=== PATIENT | female | born 1960 | race African-American/Black ===

== ENCOUNTER → 2017-04-11 15:22 | Outpatient (CLI) | payer OTHER, SELFPAY ==
--- NOTE | 2017-04-11 15:41 | HPBI_ITS ---
MAMMOGRAPHY - BILATERAL SCREENING REASON FOR EXAM: Female, 56 years old. Routine annual screening examination. PERTINENT HISTORY: Non-contributory. TECHNIQUE: Digital bilateral breast elvira (3D mammographic acquisition) in the CC and MLO projections. 2-D mediolateral oblique (MLO) and craniocaudad (CC) views of both breasts were obtained. CAD: Full Field Digital Mammography with Computer Added Detection was performed. COMPARISON: Comparison is made with prior study dated March 16, 2015 and March 14, 2014. FINDINGS: Breast Composition: There are scattered areas of fibroglandular density. There are no dominant masses or suspicious calcifications. There is a 10 mm x 9.3 mm well-defined nodule in the upper mid left breast. This is at the 11:00 o'clock position. Prior ultrasound demonstrated this to be a cyst although this nodule has increased in size. A repeat ultrasound is recommended. Stable benign-appearing bilateral axillary lymph nodes. A tissue clip marker is seen in the retroareolar region of the right breast. This is unchanged. No other significant abnormalities are identified. There has been no significant change since the prior study. HPBI/SCREENING MAMM (CAD), BILAT IMPRESSION: Slight increase in size of the nodular density at the 11 to 12:00 position of the left breast as described. Follow-up with ultrasound is recommended. ASSESSMENT CATEGORY: BIRADS Category 0: Incomplete. Need additional imaging evaluation. A letter regarding these results will be sent to the patient by the facility within 30 days. Approximately 10% of breast cancers are not detected by mammography. A normal mammogram should not delay biopsy of a clinically suspicious abnormality. [id number] Electronically Signed: Jeanmarie Nicole MD at 8:25 EST Tel [phone], Service support ,
== END ==
PROVIDERS: Family Provider Internal Medicine; PCP Internal Medicine; Visit Provider Nurse Practitioner
DX: Z12.31 Encounter for screening mammogram for malignant neoplasm of breast (principal)
CPT/HCPCS: 77063; 77067

== ENCOUNTER → 2017-04-17 12:40 | Outpatient (CLI) | payer OTHER, SELFPAY ==
--- NOTE | 2017-04-17 12:41 | US_ITS ---
STUDY: ULTRASOUND BREAST - LEFT REASON FOR EXAM: Female, 56 years old. Abnormal screening mammogram. TECHNIQUE: Axial and longitudinal images of the LEFT breast were performed with a high resolution ultrasound transducer. COMPARISON: Comparison is made with prior mammogram dated April 11, 2017 and prior sonogram of the left breast dated March 24, 2014. FINDINGS: LEFT Breast: There is a 6 mm x 7 mm x 5 mm cyst at the 11:00 position of the breast at 3 cm from the nipple. US/Breast Limited Unilateral IMPRESSION: 6 mm x 7 mm x 5 mm cyst at 11:00 position of the breast at 3 cm from the nipple. ASSESSMENT CATEGORY: BIRADS Category 2: Benign. A letter regarding these results will be sent to the patient by the facility within 30 days. Electronically Signed: Jeanmarie Nicole MD at 13:36 EST Tel [phone], Service support ,
== END ==
PROVIDERS: Family Provider Internal Medicine; PCP Internal Medicine; Visit Provider Nurse Practitioner
DX: N63.20 Unspecified lump in the left breast, unspecified quadrant (principal)
CPT/HCPCS: 76642

== ENCOUNTER → 2017-06-13 08:54 | Outpatient (CLI) | payer OTHER, SELFPAY ==
--- NOTE | 2017-06-13 08:58 | RAD_ITS ---
STUDY: X-RAY - RIGHT ANKLE REASON FOR EXAM: Female, 56 years old. posterior ankle pain TECHNIQUE: 3 view(s) of the ankle. COMPARISON: None. FINDINGS: Normal visualized distal tibia and fibula. Normal medial and lateral malleoli. Normal tibiotalar articulation and ankle mortise. Normal visualized talus and calcaneus. The visualized subtalar, talonavicular, calcaneocuboid and tarsal articulations are normal. The soft tissue structures are unremarkable. RAD/Ankle min 3 Views IMPRESSION: Normal x-ray examination of the ankle. Electronically Signed: Justin Ruth MD at 16:47 EDT , Service support ,
--- NOTE | 2017-06-13 10:16 | RAD_ITS ---
STUDY: X-RAY - LEFT ANKLE REASON FOR EXAM: Female, 56 years old. posterior ankle pain bilaterally TECHNIQUE: 3 view(s) of the ankle. COMPARISON: None. FINDINGS: Normal visualized distal tibia and fibula. Normal medial and lateral malleoli. Normal tibiotalar articulation and ankle mortise. There is a calcaneal spur. The visualized subtalar, talonavicular, calcaneocuboid and tarsal articulations are normal. The soft tissue structures are unremarkable. RAD/Ankle min 3 Views IMPRESSION: There is a calcaneal spur. Electronically Signed: Justin Ruth MD at 17:09 EDT , Service support ,
== END ==
PROVIDERS: Family Provider Internal Medicine; PCP Internal Medicine; Visit Provider Nurse Practitioner
DX: M25.571 Pain in right ankle and joints of right foot (principal); M25.572 Pain in left ankle and joints of left foot
CPT/HCPCS: 73610

== ENCOUNTER 2017-09-10 17:42 | Emergency (ER) | payer OTHER, SELFPAY ==
[2017-09-10 17:44] VITALS: BP 154/101; PULSE 96; RESP 18; TEMP 36.4; O2SAT 98; BMI 28.6
--- NOTE | 2017-09-10 18:10 | RAD_ITS ---
STUDY: X-RAY - LEFT FOOT CLINICAL: Female, 57 years old. Left foot pain TECHNIQUE: 3 view(s) of the foot. COMPARISON: None. FINDINGS: Normal talus, calcaneus, and tarsal bones. Normal visualized subtalar, talonavicular, calcaneocuboid, tarsal and tarsometatarsal articulations. Normal metatarsi. Normal metatarsophalangeal joint of the great toe. Normal tibial and fibular sesamoid bones. Normal interphalangeal joint of the great toe. Normal phalanges of the great toe. Normal second through fifth metatarsophalangeal joints. Normal interphalangeal joints and phalanges of the lesser toes. The soft tissue structures are unremarkable. RAD/Foot min 3 Views IMPRESSION: Normal x-ray examination of the foot. Electronically Signed: Emmanuel Abbasi DO at 20:52 EDT Tel , Service support ,
--- NOTE | 2017-09-10 18:13 | ED.DCSUM_ITS ---
- ER Visit Summary Date of Service: 09/10/17 Chief Complaint: Left foot injury History of Present Illness: The patient is a 57 F presenting with left foot injury. She states around 1 PM today a 20 pound metal bar fell on her left foot. She has been able to ambulate with pain. She tried Aleve at home. No other injuries Physical Examination: Vitals are stable. Patient is afebrile. Alert no acute distress. HEENT exam is unremarkable. Lungs are clear and equal bilaterally. Heart is regular rate and rhythm. Extremities left midfoot tenderness, no ankle or knee tenderness. Normal pulse Skin is warm and dry. No focal neurologic deficit. Remainder of exam is unremarkable. Emergency Department Course and Treatment: Ice pack was applied. X-ray of the left foot shows no acute process. She was given a postop shoe. She is advised to use NSAIDs for pain. Advised to follow-up with her primary care physician. Advised to return to ED for worsening complaints. Disposition: Discharge home Impression: Left foot contusion This note was generated with [employer] dictation software. It may contain incorrect words, spelling, and punctuation that were not noted in review of the chart prior to signing ED Disposition - Plan for ED Patient: Chief Complaint: Lower Extremity Injury Referrals: Maria Elena Dunne [Primary Care Provider] -
--- NOTE | 2017-09-10 20:59 | ED.DEP ---
ED Disposition - Plan for ED Patient: Chief Complaint: Lower Extremity Injury Instructions: ED Contusion Foot Referrals: Maria Elena Dunne [Primary Care Provider] - Jori Olivas DPM [STAFF PHYSICIAN] -
[2017-09-10 21:12] VITALS: BP 134/92; PULSE 101; RESP 16; O2SAT 99
== END 2017-09-10 21:13 | disposition home or self-care (01) ==
LOC: ED 18:22
PROVIDERS: Emergency Provider Emergency Medicine; Family Provider Nurse Practitioner; PCP Nurse Practitioner
DX: S90.32XA Contusion of left foot, initial encounter (principal); W22.8XXA Striking against or struck by other objects, initial encounter; Y93.9 Activity, unspecified; Y92.9 Unspecified place or not applicable; I10 Essential (primary) hypertension; E07.9 Disorder of thyroid, unspecified; Z79.899 Other long term (current) drug therapy
CPT/HCPCS: 73630; 99282

== ENCOUNTER → 2018-01-14 07:23 | Outpatient (CLI) | payer OTHER, SELFPAY ==
--- NOTE | 2018-01-14 07:48 | MRI_ITS ---
STUDY: MRI LEFT MIDFOOT REASON FOR EXAM: Pain across the dorsal midfoot after object fell on the foot 4 months ago. TECHNIQUE: Standardized fat and water weighted pulse sequences were obtained in all 3 orthogonal planes. COMPARISON: Radiographs 09/10/2017. FINDINGS: Normal talonavicular articulation. Normal calcaneocuboid articulation. Normal navicular-cuneiform articulations. Normal intercuneiform articulations. There is a subchondral cyst of the proximal first metatarsal at the first tarsometatarsal articulation (inversion recovery sagittal image 8). There is a partial tear of the proximal aspect of Lisfranc ligament (T2 series 6 image 8). There is arthrosis of the second tarsometatarsal joint with chondral thinning and subchondral cystic change at the dorsal aspect of the articulation (T1 sagittal image 11; inversion recovery sagittal image 11). Normal third tarsometatarsal articulation. Normal cuboid fourth and cuboid fifth tarsometatarsal articulation. There is no demonstrated metatarsal fracture. There is mild arthrosis of the first metatarsophalangeal joint with mild chondral thinning (T1 sagittal image 6). Normal tibialis anterior tendon. Normal extensor hallucis longus tendon. Normal extensor digitorum longus tendons. Normal peroneus longus tendon and distal insertion. Normal peroneus brevis tendon and distal insertion. Normal intrinsic muscles of the mid and forefoot region. Normal extensor digitorum brevis muscle. Normal subcutis adipose space. MRI/Lower Ext/No Jt/w/o IMPRESSION: Partial tear of Lisfranc ligament. Arthrosis of the second tarsometatarsal joint. Subchondral cyst of the first metatarsal base at the tarsometatarsal joint. Mild arthrosis of the first metatarsophalangeal joint. Electronically Signed: Duong Sam MD at 10:00 EDT Tel , Service support ,
== END ==
PROVIDERS: Family Provider Nurse Practitioner; PCP Nurse Practitioner; Referring Provider Podiatrist; Visit Provider Podiatrist
DX: S93.692A Other sprain of left foot, initial encounter (principal)
CPT/HCPCS: 73718

== ENCOUNTER → 2018-04-07 08:29 | Outpatient (CLI) | payer OTHER, SELFPAY ==
--- NOTE | 2018-04-07 08:48 | BI_ITS ---
MAMMOGRAPHY - BILATERAL SCREENING REASON FOR EXAM: Female, 57 years old. Routine annual screening examination. PERTINENT HISTORY: Non-contributory. Remote right stereotactic breast biopsy. TECHNIQUE: Digital bilateral breast elvira (3D mammographic acquisition) in the CC and MLO projections. 2-D mediolateral oblique (MLO) and craniocaudad (CC) views of both breasts were obtained. CAD: Full Field Digital Mammography with Computer Added Detection was performed. COMPARISON: Comparison is made with prior study dated April 11, 2017 and March 16, 2015. FINDINGS: Breast Composition: There are scattered areas of fibroglandular density. There are no dominant masses or suspicious calcifications. The previously seen nodular density in the upper midportion of the left breast has decreased in size. It presently measures 4.6 mm. A tissue clip marker is once again seen in the retroareolar region of the right breast. Stable 5.9 mm well-defined nodule in the anterior upper lateral portion of the right breast. This most likely represents a small cyst. Correlation with ultrasound is recommended. No other significant abnormalities are identified. There has been no significant change since the prior study. BI/SCREENING MAMM (CAD), BILAT IMPRESSION: Decreased size of the nodule in the left breast as described. 5.9 mm well-defined nodule in the anterior upper lateral portion of the right breast. Correlation with ultrasound is recommended. ASSESSMENT CATEGORY: BIRADS Category 0: Incomplete. Need additional imaging evaluation. A letter regarding these results will be sent to the patient by the facility within 30 days. Approximately 10% of breast cancers are not detected by mammography. A normal mammogram should not delay biopsy of a clinically suspicious abnormality. [id number] Electronically Signed: Jeanmarie Nicole MD at 9:53 EST Tel [phone], Service support ,
--- OUTSIDE RECORDS SUMMARY | 2018-06-09 08:58 | XMS RPT_ITS | Continuity of Care Document ---
:1960 Author Organization [facility] Address [address] [address] [place] [address] Phone Care Team Providers Name Role Phone Maria Elena Dunne CNP Unavailable Lynn Gleason Unavailable Dr. Jori Olivas Unavailable Paige Mccoy LPN Unavailable Unavailable Janna Vasquez Unavailable Unavailable Unavailable Unavailable Problems Name Dates Details Abnormal urine (R82.90, 791.9) Status: Active Achilles tendinitis of right lower extremity (M76.61, 726.71) Status: Active Bilateral ankle pain (M25.571, 719.47) Status: Active BMI 29.0-29.9,adult (Z68.29, V85.25) Comments: exercise 20-30 minutes/day, walk dog.Salad, chicken fried once a weeks.macaronipotatoe 2 x weekwheat/. Status: Active BMI 30.0-30.9,adult (Z68.30, V85.30) Status: Active Current nonsmoker (Renamed from Current non-smoker) (Z78.9, V49.89) Status: Active Deliveries (Parity) Comments: 2 Status: Active Encounter for screening mammogram for breast cancer (Renamed from Encounter for screening mammogram for malignant neoplasm of breast) (Z12.31, V76.12) Status: Active H/O colonoscopy (Z98.890, V45.89) Comments: 02/2012, WNL internal hemorhoid , repeat 10 years. Status: Active Hair loss (L65.9, 704.00) Status: Active Hair pulling (F63.3, 307.9) Status: Active Hypercholesteremia (E78.00, 272.0) Status: Active Hypertension, benign (I10, 401.1) Comments: Goal <140/90 Controlled on lopressor and hctzIs on lopressor regularly but takes HCTD only when BP are high. 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 weight watcher Status: Active Postmenopausal (Renamed from Postmenopausal status) (Z78.0, V49.81) Status: Active Prediabetes (R73.03, 790.29) Comments: A1c 6.1, repeat in 3 monthsNot testing because device did not match the test strips Status: Active Pregnancies () Comments: 2 Status: Active Sickle cell trait syndrome (D57.3, 282.5) Status: Active Sinusitis, acute (J01.90, 461.9) Status: Active Thyroid cancer (C73, 193) Comments: pt doesnt know what kind of cancer it is and will call us . Seeing Dr Shaan Rico can switch to BJ Shookthyroid removed 07/[address] Teague[address]ndy thyroid Dr. luu endocrine Status: Active Unspecified Diagnosis Status: Active Unspecified Diagnosis Status: Active Unspecified Diagnosis Status: Active Vertigo (R42, 780.4) Status: Active Vitamin D deficiency, unspecified (E55.9, 268.9) Status: Active Medications Name Dates Details HydroCHLOROthiazide 12.5 MG Oral Capsule 1 Capsule daily for 30 days Quantity: 30 {Capsule} Refills: 6 Ordered:13-Jun-2017 Vibha LORA, Maria Elena Louie CNP, Maria Elena Odonnell Start : 13-Jun-2017 Active Levoxyl 137 MCG Oral Tablet 1 Tablet daily except 1/2 a pill on Friday for 0 days Quantity: 30 {Tablet} Refills: 6 Ordered:07-Mar-2017 Vibha LORA, Maria Elena Louie CNP, Maria Elena Odonnell Start : 07-Mar-2017 Active MULTIVITAMIN (PO Chew Tab) 1 Daily Active Norvasc 5 MG Oral Tablet 1 (one) Tablet daily as directed for 0 days Quantity: 30 {Tablet} Refills: 0 Ordered:13-Oct-2017 Vibha LORA, Maria Elena Louie CNP, Maria Elena Odonnell Start : 13-Oct-2017 Active Vitamin D3 2000U daily Active ANUSOL-HC, 25MG (Rectal Suppository) 1 (one) Suppository qhs prn for 0 days Quantity: 30 {Suppository} Refills: 0 Ordered:13-Oct-2014 STEPHANIE Wright Start : 24-Aug-2014 End : 13-Oct-2014 Inactive AUGMENTIN, 875-125MG (Oral Tablet) 1 (one) Tablet bid for 0 days Quantity: 20 {Tablet} Refills: 0 Ordered:05-May-2015 STEPHANIE Wright Start : 20-Mar-2015 End : 05-May-2015 Inactive Ergocalciferol 61418 UNIT Oral Capsule 1 (one) Capsule twice a week x3 months for 0 days Quantity: 24 {Capsule} Refills: 0 Ordered:22-Sep-2017 Vibha LORA, Maria Elena Zheng CNP Start : 04-Mar-2017 End : 22-Sep-2017 Inactive Lopressor 50 MG Oral Tablet 1 Tablet BID for 0 days Quantity: 60 {Tablet} Refills: 6 Ordered:22-Sep-2017 Paige Mccoy LPN Start : 30-Mar-2017 End : 22-Sep-2017 Inactive Probiotic Oral Tablet Delayed Release 1 (one) Tablet DR Tablet DR daily for 0 days Quantity: 30 {Tablet} Refills: 0 Ordered:13-Jun-2017 Paige Mccoy LPN Start : 29-Apr-2016 End : 13-Jun-2017 Inactive Vitamin D3 High Potency 1000 UNIT Oral Capsule 2 (two) Capsule daily for 30 days Quantity: 30 {Capsule} Refills: 0 Ordered:13-Nov-2015 Nj Nassar MD Start : 11-Oct-2015 End : 10-Nov-2015 Inactive ReliOn All-In-One Device 1 (one) Device one for 0 days Quantity: 1 {Unspecified} Refills: 0 Ordered:03-Sep-2016 Dylan Mccoy LPNa Start : 28-May-2016 End : 03-Sep-2016 Discontinued ReliOn Lancets Thin 26G Miscellaneous 1 (one) Misc bid for 0 days Quantity: 100 {Unspecified} Refills: 3 Ordered:03-Sep-2016 Dylan Mccoy LPNa Start : 28-May-2016 End : 03-Sep-2016 Discontinued ReliOn Ultima Test In Vitro Strip 1 (one) Strip twice daily for 0 days Quantity: 60 {Strip} Refills: 6 Ordered:03-Sep-2016 yDlan Mccoy LPNa Start : 28-May-2016 End : 03-Sep-2016 Discontinued Zithromax Z-Kale 250 MG Oral Tablet 1 (one) Tablet TAD for 0 days Quantity: 1 {Package} Refills: 0 Ordered:28-May-2016 Paige Mccoy LPN Start : 29-Apr-2016 End : 28-May-2016 Discontinued Allergies and Adverse Reactions Name Dates Details Augmentin *PENICILLINS* (Allergy) Status: Active Comments: diarrhea No Known Allergies (Allergy) Onset: 05-May-2015 Status: Inactive No Known Drug Allergies (Allergy) Onset: 05-Aug-2011 Status: Inactive Past Medical History Name Dates Details Abnormal finding on mammography (R92.8, 793.80) Comments: 02/28 mammogram wnlabnormal mamogram 2012 Status: Inactive as of 09-Dec-2016 Achilles tendon pain (727.89) Comments: nsaids sttrecthing not gustavo rto orthosx. Status: Inactive as of 13-Oct-2014 BMI 28.0-28.9,adult (Z68.28, V85.24) Status: Inactive as of 09-Dec-2016 BMI 29.0-29.9,adult (Z68.29, V85.25) Status: Inactive as of 10-Jun-2017 BMI 30.0-30.9,adult (Z68.30, V85.30) Status: Inactive as of 22-Sep-2017 Breast cancer screening (Z12.39, V76.10) Status: Inactive as of 13-Oct-2014 Chest pain (R07.9, 786.50) Comments: sound atypical only happen once. will check EKG. only risk factor in postmenapausal Status: Inactive as of 13-Oct-2014 Diarrhea (R19.7, 787.91) Status: Inactive as of 09-Dec-2016 Gas pain (R14.1, 787.3) Status: Inactive as of 13-Jun-2017 Hemorrhoid (K64.9, 455.6) Status: Inactive as of 13-Oct-2014 Pain of right clavicle (M89.8X1, 733.90) Comments: will try nsaids if not better then get xrayno known injury, just feels sore Status: Inactive as of 09-Dec-2016 Rectal discomfort (K62.89, 569.42) Status: Inactive as of 05-May-2015 Unspecified Diagnosis Status: Inactive as of 13-Oct-2014 Upper Respiratory Infection (J06.9, 465.9) Status: Inactive as of 05-May-2015 Well woman exam (Z00.00, V70.0) Comments: colonscopy 02-25 good due 10 years mammo -, pap good hpv negative 09-28 Status: Inactive as of 09-Dec-2016 WWV V73.21 Comments: planning pap next month. will get mammo. pap in follow up last menses 2 years ago. Status: Inactive as of 29-Mar-2013 Procedures Procedure Dates Details colonoscopy 02/2012, repeat 10 yrs, mammogram 02/28, pap 09/28 Completed Mammogram, Screening Completed Comments: 12/24 Thyroidectomy; Total Completed Comments: 07/19 Date Value Details 10-Sep-2017 Discharge Instruction Result: Comments: See Note; NOTES: [facility] Medical Records Department [address] [place] [address] Discharge Instruction 09/10/172058 MR#: [id number] Acct: [id number] Name: AARONSHAHEEN Horn Rep #: [id number] : 1960 57 From: Greta Fajardo MD PCP: Maria Elena Dunne NP Status: REG ER ED Disposition - Plan for ED Patient: Chief Complaint: Lower Extremity Injury Instructions: ED Contusion Foot Referrals: Maria Elena Dunne [Primary Care Provider] - Jori Olivas DPM [STAFF PHYSICIAN] - What to do if you have Problems For any increased pain, shortness of breath, bleeding, nausea or vomiting, chest pain, or any unexpected problems, contact your Primary Care Provider. Call [facility] ([phone]) or report to the closest Emergency Room. Call 911 if necessary. 09/10/17 2 059 <Electronically signed by Greta Fajardo MD> Date Greta Fajardo MD Cosigner Signature (If Indicated): Date CC: Maria Elena Dunne NP 10-Sep-2017 Emergency Department Summary Result: Comments: See Note; NOTES: [facility] Medical Records Department [address] [place] [address] Emergency Department Summary 09/10/17 1812 MR#: [id number] Acct: [id number] Name: DESTINI CHIU Rep #: [id number] : 1960 57 From: Greta Fajardo MD PCP: Maria Elena Dunne NP Status: REG ER - ER Visit Summary Date of Service: 09/10/17 Chief Complaint: Left foot injury History of Present Illness: The patient is a 57 F presenting with left foot injury. She states around 1 PM today a 20 pound metal bar fell on her left foot. She has been able to ambulate with pain. She tried Al victor hugo at home. No other injuries Physical Examination: Vitals are stable. Patient is afebrile. Alert no acute distress. HEENT exam is unremarkable. Lungs are clear and equal bilaterally. Heart is regular rate and rhythm. Extremities left midfoot tenderness, no ankle or knee tenderness. Normal pulse Skin is warm and dry. No focal neurologic deficit. Remainder of exam is unremarkable. Emergency Depart ment Course and Treatment: Ice pack was applied. X-ray of the left foot shows no acute process. She was given a postop shoe. She is advised to use NSAIDs for pain. Advised to follow-up with her primary care physician. Advised to return to ED for worsening complaints. Disposition: Discharge home Impression: Left foot contusion This note was generated with Fingerprint dictation software. It may contain incorrect words, spelling, and punctuation that were not noted in review of the chart prior to signing ED Disposition - Plan for ED Patient: Chief Complaint: Lower Extremity Injury Referrals: Maria Elena Dunne [Primary Care Provider] - What to do if you have Problems For any increased pain, shortness of breath, bleeding, nausea or vomiting, chest pain, or any unexpected problems, contact your Primary Care Provider. Call [facility] ([phone]) or report to the closest Emergency Room. Call 911 if necessary. 09/10/172058 <Electronically signed by Greta Fajardo MD> Date __ Greta Fajardo MD Cosigner Signature (If Indicated): Date CC: Maria Elena Dunne NP 10-Sep-2017 Foot min 3 Views Result: Comments: See Note; NOTES: [facility] Imaging Services [address] [place] [address] Foot min 3 Views MR#: [id number] Acct: [id number] Name: DESTINI CHIU Rep #: [id number] : 1960 F 57 From: Emmanuel Abbasi DO PCP: Maria Elena Dunne NP Status: REG ER Study: Foot min 3 Views Date of Exam: 09/10/17 Exam# [id number] Ordering Dr: Greta Fajardo MD STUDY: X-RAY - LEFT FOOT CLI NICAL: Female, 57 years old. Left foot pain TECHNIQUE: 3 view(s) of the foot. COMPARISON: None. FINDINGS: Normal talus, calcaneus, and tarsal bones. Normal visual ized subtalar, talonavicular, calcaneocuboid, tarsal and tarsometatarsal articulations. Normal metatarsi. Normal metatarsophalangeal joint of the great toe. Normal tibial and fibular sesamoid bones. N ormal interphalangeal joint of the great toe. Normal phalanges of the great toe. Normal second through fifth metatarsophalangeal joints. Normal interphalangeal joints and phalanges of the lesser toes. The soft tissue structures are unremarkable. RAD/Foot min 3 Views IMPRESSION: Normal x-ray examination of the foot. Electronically Signed: Emmanuel Abbasi DO at 20:52 EDT Tel , Service support , CC: Maria Elena Dunne CD REACTOR OPERATOR; Greta Fajardo MD Director Of Fundraising: Signed 13-Jun-2017 Ankle min 3 Views Result: Comments: See Note; NOTES: [facility] Imaging Services [address] [place] [address] Ankle min 3 Views MR#: [id number] Acct: [id number] Name: DESTINI CHIU Rep #: [id number] : 1960 F 56 From: Justin Ruth MD PCP: Kenzie Villa MD Status: REG CLI Study: Ankle min 3 Views Date of Exam: 06/13/17 Exam# [id number] Ordering Dr: Maria Elena Dunne STUDY: X-RAY - LEFT ANKLE REASON FOR EXAM: Female, 56 years old. posterior ankle pain bilaterally TECHNIQUE: 3 view(s) of the ankle. COMPARISON: None. FINDINGS: Normal visualized distal tibia and fibula. Normal medial and lateral malleoli. Normal tibiotalar articulation and ankle mortise. There is a calcaneal spur. The visualized subtalar, talonavicular, calcaneocuboid and tarsal articulation s are normal. The soft tissue structures are unremarkable. RAD/Ankle min 3 Views IMPRESSION: There is a calcaneal spur. Electronically Signed: Justin Ruth MD at 17:09 EDT , Service support , CC: Maria Elena Dunne CD REACTOR OPERATOR; Kenzie Villa MD Director Of Fundraising: Signed 13-Jun-2017 Ankle min 3 Views Result: Comments: See Note; NOTES: [facility] Imaging Services [address] [place] [address] Ankle min 3 Views MR#: [id number] Acct: [id number] Name: DESTINI CHIU Rep #: [id number] : 1960 F 56 From: Justin Ruth MD PCP: Kenzie Villa MD Status: REG CLI Study: Ankle min 3 Views Date of Exam: 06/13/17 Exam# [id number] Ordering Dr: Maria Elena Dunne STUDY: X-RAY - RIGHT ANKLE REASO N FOR EXAM: Female, 56 years old. posterior ankle pain TECHNIQUE: 3 view(s) of the ankle. COMPARISON: None. FINDINGS: Normal visualized distal tibia and fibula. No rmal medial and lateral malleoli. Normal tibiotalar articulation and ankle mortise. Normal visualized talus and calcaneus. The visualized subtalar, talonavicular, calcaneocuboid and tarsal articulatio ns are normal. The soft tissue structures are unremarkable. RAD/Ankle min 3 Views IMPRESSION: Normal x-ray examination of the ankle. Electronic ally Signed: Justin Ruth MD at 16:47 EDT , Service support , CC: Maria Elena Dunne CD REACTOR OPERATOR; Kenzie Villa MD Director Of Fundraising: Signed 17-Apr-2017 Breast Limited Unilateral Result: Comments: See Note; NOTES: [facility] Imaging Services [address] [place] [address] Breast Limited Unilateral MR#: [id number] Acct: [id number] Name: DESTINI CHIU Rep #: [id number] : 1960 F 56 From: Jeanmarie Nicole MD PCP: Kenzie Villa MD Status: REG CLI Study: Breast Limited Unilateral Date of Exam: 04/17/17 Exam# [id number] Ordering Dr: Maria Elena Dunne STUDY: ULTRA SOUND BREAST - LEFT REASON FOR EXAM: Female, 56 years old. Abnormal screening mammogram. TECHNIQUE: Axial and longitudinal images of the LEFT breast were performed with a high resolution ultrasound tr ansducer. COMPARISON: Comparison is made with prior mammogram dated April 11, 2017 and prior sonogram of the left breast dated March 24, 2014. FINDINGS: LEFT Br east: There is a 6 mm x 7 mm x 5 mm cyst at the 11:00 position of the breast at 3 cm from the nipple. US/Breast Limited Unilateral IMPRESSION: 6 mm x 7 mm x 5 mm cyst at 11:00 position of the breast at 3 cm from the nipple. ASSESSMENT CATEGORY: BIRADS Category 2: Benign. A letter regarding these results will be sent to the patient by the facility within 30 days. Electronically Signed: Jeanmarie Nicole MD at 13:36 EST Tel [phone], Service support , CC: Maria Elena Dunne CD REACTOR OPERATOR; Kenzie Villa MD Director Of Fundraising: Signed 11-Apr-2017 SCREENING MAMM (CAD), BILAT Result: Comments: See Note; NOTES: [facility] Imaging Services [address] [place] [address] SCREENING MAMM (CAD), BILAT MR#: [id number] Acct: [id number] Name: DESTINI CHIU Rep #: [id number] : 1960 F 56 From: Jeanmarie Nicole MD PCP: Kenzie Villa MD Status: REG CLI Study: SCREENING MAMM (CAD), BILAT Date of Exam: 04/11/17 Exam# [id number] Ordering Dr: Maria Elena Dunne PHY - BILATERAL SCREENING REASON FOR EXAM: Female, 56 years old. Routine annual screening examination. PERTINENT HISTORY: Non-contributory. TECHNIQUE: Digital bilateral breast elvira (3D mammographic a cquisition) in the CC and MLO projections. 2-D mediolateral oblique (MLO) and craniocaudad (CC) views of both breasts were obtained. CAD: Full Field Digital Mammography with Computer Added Detection was performed. COMPARISON: Comparison is made with prior study dated March 16, 2015 and March 14, 2014. FINDINGS: Breast Composition: There are scattered areas o f fibroglandular density. There are no dominant masses or suspicious calcifications. There is a 10 mm x 9.3 mm well-defined nodule in the upper mid left breast. This is at the 11:00 o'clock position. P rior ultrasound demonstrated this to be a cyst although this nodule has increased in size. A repeat ultrasound is recommended. Stable benign-appearing bilateral axillary lymph nodes. A tissue clip marke r is seen in the retroareolar region of the right breast. This is unchanged. No other significant abnormalities are identified. There has been no significant change since the prior study. HPBI/SCREENING MAMM (CAD), BILAT IMPRESSION: Slight increase in size of the nodular density at the 11 to 12:00 position of the left breast as described. Follo w-up with ultrasound is recommended. ASSESSMENT CATEGORY: BIRADS Category 0: Incomplete. Need additional imaging evaluation. A letter regarding these results will b e sent to the patient by the facility within 30 days. Approximately 10% of breast cancers are not detected by mammography. A normal mammogram should not delay biopsy of a clinically suspicious abnormal ity. [id number] Electronically Signed: Jeanmarie Nicole MD at 8:25 EST Tel [phone], Service support , CC: Maria Elena Dunne CD REACTOR OPERATOR; Kenzie Villa MD Director Of Fundraising: Signed 06-Mar-2017 Dexa Bone Density Study (HP) Result: Comments: See Note; NOTES: [facility] Imaging Services [address] [place] [address] Dexa Bone Density Study (HP) MR#: [id number] Acct: [id number] Name: DESTINI CHIU Rep #: [id number] : 1960 F 56 From: Jeanmarie Nicole MD PCP: Kenzie Villa MD Status: REG CLI Study: Dexa Bone Density Study (HP) Date of Exam: 03/06/17 Exam# [id number] Ordering Dr: Maria Elena Dunne STUDY: DUAL ENERGY X-RAY ABSORPTIOMETRY / DXA REASON FOR EXAM: Female, 56 years old. The patient is postmenopausal. TECHNIQUE: Bone Mineral Density (BMD) measurements of lumbar spine and bilateral hips were obtained. COMPARISON: None. FINDINGS: Lumbar Spine (L1-L4): g/cm2 (1.401) / T-score (1.8) / Z-score (2.1) Findings are suggestive of normal bone density with a lo w fracture risk. Left Femur Total: g/cm2 (1.173) / T-score (1.3) / Z-score (1.1) Left Femoral Neck: g/cm2 (1.164) / T-score (0.9) / Z-score (1.1) Right Femur Total: g/cm2 (1.214) / T-score (1.6) / Z-sc ore (1.5) Right Femoral Neck: g/cm2 (1.151) / T-score (0.8) / Z-score (1.0) HPBD/Dexa Bone Density Study (HP) IMPRESSION: The patient is conside red normal as outlined below according to World Jhony Organization (WHO) criteria with a low fracture risk. Reference Information: The T-score is the number of felice dard deviations above or below the standard which is normal for young adults at their peak bone mineral density. The World Health Organization (WHO) interprets the T-scores as follows: Above -1 Normal bone density Between -1 and -2.5 Osteopenia Equal to / or below -2.5 Osteoporosis As a practical clinical guideline, osteopenia may be graded as follows: Mild - 1 through -1.5 Moderate -1.6 through -2.0 Severe -2.1 through -2.4 The Z-score is the number of standard deviations above or below age-matched controls. A Z-score of less than -1.5 would be considered abnormal. References: 1. NIH Osteoporosi s and Related Bone Diseases http://www.osteo.org 2. International Society for Clinical Densitometry http://www.iscd.org 3. National Osteoporosis Foundation http://www.nof.org Electronically Signed: Victorino Nicole MD at 13:36 EST Tel [phone], Service support , CC: Maria Elena Dunne CD REACTOR OPERATOR; Kenzie Villa MD Director Of Fundraising: Signed 13-Dec-2015 Thyroid Result: Comments: See Note; NOTES: [facility] Imaging Services [address] [place] [address] Verdana 4d Thyroid MR#: [id number] Acct: [id number] Name: DESTINI CHIU Rep #: [id number] DO B: 1960 F 55 From: Jeanmarie Nicole MD PCP: Kenzie Villa MD Status: REG CLI Study: Thyroid Date of Exam: 12/13/15 Exam# [id number] Ordering Dr: Lynn Gleason MD STUDY: THYROID ULTRA SOUND REASON FOR EXAM: Female, 55 years old. History of a thyroidectomy. TECHNIQUE: Ultrasound evaluation of the thyroid was performed with real-time and static mix-scale imaging. COMPARISON: Compar merly is made with prior ultrasound dated May 28, 2004. FINDINGS: The patient is status post total thyroidectomy. 2 lymph nodes are seen in the right cervical reg ion. The larger measuring 1.6 cm x 1.1 cm x 0.4 cm. 2 lymph nodes are seen in the left cervical region. The larger measures 1.1 cm x 0.9 cm x 0.3 cm. ORDER #: [id number] US/Thyroid IMPRESSION: The patient is status post total thyroidectomy. Small bilateral cervical lymph nodes. Electronically Signed: Jeanmarie Nicole MD at 8:28 EDT Tel [phone], Service support [phone], CC: Kenzie Villa MD; Lynn Gleason MD Director Of Fundraising: Signed 16-Mar-2015 Bilat Scrn Digital AND CAD Result: Comments: See Note; NOTES: [facility] Imaging Services [address] [place] [address] Verdana 4d Bilat Scrn Digital AND CAD MR#: [id number] Acct: [id number] Name: DESTINI CHIU Rep #: [id number] : 1960 F 54 From: Jeanmarie Nicole MD PCP: Kenzie Villa MD Status: REG CLI Study: Carline Bullard Digital AND CAD Date of Exam: 03/16/15 Exam# [id number] Ordering Dr: Kenzie Villa MD MAMMOGRAPHY - BILATERAL SCREENING REASON FOR EXAM: Female, 54 years old. Routine annual screening examination. PERTINENT HISTORY: Non-contributory. Prior right stereotactic biopsy. TECHNIQUE: Digital examination. Mediolateral oblique (MLO) and craniocaudad (CC) views of both breasts were obtained. CAD: CAD was performed on this study. COMPARISON: Comparison is made with prior study dated March 14, 2014 and July 14, 2007. FINDINGS: Breast Composition: There are scattered areas of fibroglandular density. There are no do minant masses or suspicious calcifications. The previously seen nodule in the upper midportion of the left breast has decreased in size there is this most likely presents partial resolution of a cyst. No new mass lesion is seen. No other significant abnormalities are identified. IMPRESSION: Stable bilateral screening mammogram. Yearly follow-up recommended. (A) ASSESSMENT CATEGORY: BIRADS Category 2: Benign. A letter regarding these results will be sent to the patient by the facility within 30 days. Approximatel y 10% of breast cancers are not detected by mammography. A normal mammogram should not delay biopsy of a clinically suspicious abnormality. [id number] Electronically Signed: Jeanmarie Nicole MD 2 at 8:59 EST Tel [phone], Service support [phone], CC: Kenzie Villa MD Director Of Fundraising: Signed 12-Oct-2014 Unilat Lt Diag Digital AND CAD Result: Comments: See Note; NOTES: [facility] Imaging Services [address] [place] [address] Breast Imaging Report MR#: [id number] Acct: [id number] Name: DESTINI CHIU Rep #: [id number] : 1960 F 54 From: Jeanmarie Nicole MD PCP: Kenzie Villa MD Status: REG CLI Study: Unilat Lt Diag Digital AND CAD Date of Exam: 10/12/14 Exam# [id number] Ordering Dr: Kenzie Villa MD MAMMOGRAPHY - UNILATERAL DIAGNOSTIC: LEFT BREAST REASON FOR EXAM: Female, 54 years old. 6 month followup examination. PERTINENT HISTORY: Prior right stereotactic breast biopsy. TECHNIQUE: D igital examination. Mediolateral oblique (MLO) and craniocaudad (CC) views of the breast were obtained. CAD: CAD was performed on this study. COMPARISON: Comparison is made with prior study dated 2013 and January 11, 2008. FINDINGS: Breast Composition: There are scattered areas of fibroglandular density. The previously seen 7 mm well-defined nodule in the upper lateral portion of the left breast is less conspicuous at this time. This was previously demonstrated to be a cyst. No other significant abnormalities are identified. IMPRESSION: Stable unilateral diagnostic mammogram. One year follow-up recommended. (A) ASSESSMENT CATEGORY: BIRADS Category 2: Arvin ign. A letter regarding these results will be sent to the patient by the facility within 30 days. Approximately 10% of breast cancers are not detected by mammography. A normal mammogram should not d elay biopsy of a clinically suspicious abnormality. Electronically Signed: Jeanmarie Nicole MD at 13:58 EDT Tel [phone], Service support [phone], CC: Kenize Villa MD Director Of Fundraising: Signed 24-Mar-2014 Breast Limited Unilateral Result: Comments: See Note; NOTES: [facility] Imaging Services [address] [place] [address] Ultrasound Report MR#: [id number] Acct: [id number] Name: DESTINI CHIU Rep #: [id number] : 1960 F 53 From: Jeanmarie Nicole MD PCP: Kenzie Villa MD Status: REG CLI Study: Breast Limited Unilateral Date of Exam: 03/24/14 Exam# [id number] Ordering Dr: Kenzie Villa MD CHUCK DY: ULTRASOUND BREAST(S) - LEFT REASON FOR EXAM: Female, 53 years old. Abnormal screening mammogram. TECHNIQUE: Axial and longitudinal images of the LEFT breast were performed with a high resolutio n ultrasound transducer. COMPARISON: Comparison is made with prior mammogram dated March 14, 2014. FINDINGS: LEFT BREAST: The upper half of the left breas t was examined. There is a 5 mm x 5 mm x 3 mm cyst at the 11:00 position of the breast at 3 cm from the nipple. This corresponds to the mammographic abnormality. IMPRESSION: The mammographic abnormality corresponds to a 5 mm x 5 mm x 3 mm cyst. ASSESSMENT CATEGORY: BIRADS Category 2: Benign. A letter regarding these resu lts will be sent to the patient by the facility within 30 days. Electronically Signed: Jeanmarie Nicole MD at 15:22 EST Tel [phone], Service support [phone], CC: Kenzie Villa MD Director Of Fundraising: Signed 14-Mar-2014 Bilat Scrn Digital AND CAD Result: Comments: See Note; NOTES: [facility] Imaging Services [address] [place] [address] Breast Imaging Report MR#: [id number] Acct: [id number] Name: DESTINI CHIU Rep #: [id number] : 1960 F 53 From: Pavel Olmstead MD PCP: Kenzie Villa MD Status: REG CLI Study: Bilat Scrn Digital AND CAD Date of Exam: 03/14/14 Exam# [id number] Ordering Dr: Kenzie Villa MD MAMMO GRAPHY - BILATERAL SCREENING REASON FOR EXAM: Female, 53 years old. Routine annual screening examination. PERTINENT HISTORY: Sister with breast cancer. TECHNIQUE: Digital examination. Mediolatera l oblique (MLO) and craniocaudad (CC) views of both breasts were obtained. CAD: CAD was performed on this study. COMPARISON: 2007 FINDINGS: Breast Composition : There are scattered areas of fibroglandular density. There are no dominant masses or suspicious calcifications. Stable subcentimeter nodule in the upper outer quadrant of the right breast unchange d from the previous study. However there is a new well-defined 7 mm nodule in the central upper aspect of the left breast. Since this was not present on the previous study, further evaluation with ult rasound is recommended. No other significant abnormalities are identified. IMPRESSION: Further imaging evaluation recommended, as described above. (E) ASSESSMENT CATEGORY: BIRADS Category 0: Incomplete. Need additional imaging evaluation. A letter regarding these results will be sent to the patient by the facility wit hin 30 days. BR0A Approximately 10% of breast cancers are not detected by mammography. A normal mammogram should not delay biopsy of a clinically suspicious abnormality. 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 son and daughter Status: Active No Drug Use Status: Active Non Drinker/No Alcohol Use Status: Active Tobacco use: Never smoker. Status: Active Smoking Status Name Dates Details Never smoker Vital Signs Date Test Result Details :53 Temperature 97.8 f Pulse 72 /min Comments: Pattern: Regular Respiration Rate 16 /min Comments: Pattern: Unlabored BP Systolic 118 mm[Hg] Comments: Patient Position: Sitting; Cuff Location: Left Arm; Cuff Size: Standard BP Diastolic 80 mm[Hg] Comments: Patient Position: Sitting; Cuff Location: Left Arm; Cuff Size: Standard Weight 173.25 lb Height 63.5 in Body Mass Index Calculated 30.21 kg/m2 Body Surface Area Calculated 1.83 m2 :43 Temperature 97.7 f Pulse 61 /min Comments: Pattern: Regular Respiration Rate 16 /min Comments: Pattern: Unlabored O2 SAT 96 % Comments: Room air BP Systolic 148 mm[Hg] Comments: Patient Position: Sitting; Cuff Location: Left Arm; Cuff Size: Standard BP Diastolic 90 mm[Hg] Comments: Patient Position: Sitting; Cuff Location: Left Arm; Cuff Size: Standard Weight 173.5 lb Height 63.5 in Body Mass Index Calculated 30.25 kg/m2 Body Surface Area Calculated 1.83 m2 :35 Pulse 74 /min Comments: Pattern: Regular Respiration Rate 16 /min Comments: Pattern: Unlabored O2 SAT 98 % Comments: Room air BP Systolic 128 mm[Hg] Comments: Patient Position: Sitting; Cuff Location: Left Arm; Cuff Size: Standard BP Diastolic 78 mm[Hg] Comments: Patient Position: Sitting; Cuff Location: Left Arm; Cuff Size: Standard Weight 171 lb Height 63.5 in Body Mass Index Calculated 29.82 kg/m2 Body Surface Area Calculated 1.82 m2 :39 Temperature 97.9 f Pulse 61 /min Comments: Pattern: Regular Respiration Rate 16 /min Comments: Pattern: Unlabored O2 SAT 97 % Comments: Room air BP Systolic 132 mm[Hg] Comments: Patient Position: Sitting; Cuff Location: Left Arm; Cuff Size: Standard BP Diastolic 82 mm[Hg] Comments: Patient Position: Sitting; Cuff Location: Left Arm; Cuff Size: Standard Weight 172 lb Height 63.5 in Body Mass Index Calculated 29.99 kg/m2 Body Surface Area Calculated 1.82 m2 :53 Temperature 97 f Pulse 76 /min Comments: Pattern: Regular Respiration Rate 16 /min Comments: Pattern: Unlabored O2 SAT 98 % Comments: Room air BP Systolic 122 mm[Hg] Comments: Patient Position: Sitting; Cuff Location: Left Arm; Cuff Size: Standard BP Diastolic 76 mm[Hg] Comments: Patient Position: Sitting; Cuff Location: Left Arm; Cuff Size: Standard Weight 165.25 lb Height 63.5 in Body Mass Index Calculated 28.81 kg/m2 Body Surface Area Calculated 1.79 m2 :17 Temperature 97.8 f Pulse 86 /min Comments: Pattern: Regular Respiration Rate 17 /min Comments: Pattern: Unlabored O2 SAT 96 % Comments: Room air BP Systolic 124 mm[Hg] Comments: Patient Position: Sitting; Cuff Location: Left Arm; Cuff Size: Standard BP Diastolic 82 mm[Hg] Comments: Patient Position: Sitting; Cuff Location: Left Arm; Cuff Size: Standard Weight 164 lb Height 63.5 in Body Mass Index Calculated 28.6 kg/m2 Body Surface Area Calculated 1.79 m2 :13 Temperature 97.8 f Pulse 71 /min Comments: Pattern: Regular Respiration Rate 18 /min Comments: Pattern: Unlabored O2 SAT 97 % Comments: Room air BP Systolic 122 mm[Hg] Comments: Patient Position: Sitting; Cuff Location: Left Arm; Cuff Size: Standard BP Diastolic 80 mm[Hg] Comments: Patient Position: Sitting; Cuff Location: Left Arm; Cuff Size: Standard Weight 167.25 lb Height 63.5 in Body Mass Index Calculated 29.16 kg/m2 Body Surface Area Calculated 1.8 m2 :03 Temperature 98.2 f Comments: Method: Temporal Respiration Rate 16 /min Comments: Pattern: Unlabored O2 SAT 98 % Comments: Room air BP Systolic 140 mm[Hg] Comments: Patient Position: Sitting; Cuff Location: Left Arm; Cuff Size: Standard BP Diastolic 86 mm[Hg] Comments: Patient Position: Sitting; Cuff Location: Left Arm; Cuff Size: Standard Weight 171 lb Height 63.5 in Body Mass Index Calculated 29.82 kg/m2 Body Surface Area Calculated 1.82 m2 :31 Temperature 97.6 f Comments: Method: Temporal Pulse 58 /min Comments: Pattern: Regular Respiration Rate 18 /min Comments: Pattern: Unlabored O2 SAT 95 % Comments: Room air BP Systolic 126 mm[Hg] Comments: Patient Position: Sitting; Cuff Location: Left Arm; Cuff Size: Standard BP Diastolic 84 mm[Hg] Comments: Patient Position: Sitting; Cuff Location: Left Arm; Cuff Size: Standard Weight 172 lb Height 63.5 in Body Mass Index Calculated 29.99 kg/m2 Body Surface Area Calculated 1.82 m2 :34 BP Systolic 124 mm[Hg] Comments: Patient Position: Sitting; Cuff Location: Left Arm; Cuff Size: Standard BP Diastolic 76 mm[Hg] Comments: Patient Position: Sitting; Cuff Location: Left Arm; Cuff Size: Standard :54 Temperature 97.9 f Comments: Method: Temporal Pulse 92 /min Comments: Pattern: Regular Respiration Rate 16 /min Comments: Pattern: Unlabored O2 SAT 97 % Comments: Room air BP Systolic 120 mm[Hg] Comments: Patient Position: Sitting; Cuff Location: Left Arm; Cuff Size: Standard BP Diastolic 86 mm[Hg] Comments: Patient Position: Sitting; Cuff Location: Left Arm; Cuff Size: Standard Weight 169 lb Height 63.75 in Body Mass Index Calculated 29.24 kg/m2 Body Surface Area Calculated 1.82 m2 :05 Comments: has not taken her b/p med yet this am Temperature 97.6 f Comments: Method: Temporal Pulse 68 /min Comments: Pattern: Regular Respiration Rate 18 /min Comments: Pattern: Unlabored O2 SAT 98 % Comments: Room air BP Systolic 144 mm[Hg] Comments: Patient Position: Sitting; Cuff Location: Left Arm; Cuff Size: Large BP Diastolic 96 mm[Hg] Comments: Patient Position: Sitting; Cuff Location: Left Arm; Cuff Size: Large Weight 166 lb Height 63.75 in Body Mass Index Calculated 28.72 kg/m2 Body Surface Area Calculated 1.8 m2 :29 Temperature 97.4 f Pulse 77 /min Comments: Pattern: Regular Respiration Rate 16 /min Comments: Pattern: Unlabored O2 SAT 97 % Comments: Room air BP Systolic 122 mm[Hg] Comments: Patient Position: Sitting; Cuff Location: Left Arm; Cuff Size: Standard BP Diastolic 82 mm[Hg] Comments: Patient Position: Sitting; Cuff Location: Left Arm; Cuff Size: Standard Weight 166.5 lb Height 63.75 in Body Mass Index Calculated 28.8 kg/m2 Body Surface Area Calculated 1.8 m2 [id number] Pulse 82 /min Comments: Pattern: Regular Respiration Rate 16 /min Comments: Pattern: Unlabored O2 SAT 96 % Comments: Room air BP Systolic 124 mm[Hg] Comments: Patient Position: Sitting; Cuff Location: Left Arm; Cuff Size: Standard BP Diastolic 80 mm[Hg] Comments: Patient Position: Sitting; Cuff Location: Left Arm; Cuff Size: Standard Weight 172 lb Height 63.75 in Body Mass Index Calculated 29.76 kg/m2 Body Surface Area Calculated 1.83 m2 :45 Pulse 58 /min Comments: Pattern: Regular Respiration Rate 16 /min Comments: Pattern: Unlabored O2 SAT 98 % Comments: Room air BP Systolic 122 mm[Hg] Comments: Patient Position: Sitting; Cuff Location: Left Arm; Cuff Size: Standard BP Diastolic 78 mm[Hg] Comments: Patient Position: Sitting; Cuff Location: Left Arm; Cuff Size: Standard Weight 157 lb Height 63.75 in Body Mass Index Calculated 27.16 kg/m2 Body Surface Area Calculated 1.76 m2 :32 Pulse 68 /min Comments: Pattern: Regular Respiration Rate 20 /min Comments: Pattern: Unlabored BP Systolic 122 mm[Hg] Comments: Patient Position: Sitting; Cuff Location: Left Arm; Cuff Size: Large BP Diastolic 80 mm[Hg] Comments: Patient Position: Sitting; Cuff Location: Left Arm; Cuff Size: Large Weight 171 lb Height 63.75 in Body Mass Index Calculated 29.58 kg/m2 Body Surface Area Calculated 1.82 m2 :17 Temperature 97.6 f Comments: Method: Oral Pulse 64 /min Comments: Pattern: Regular Respiration Rate 18 /min Comments: Pattern: Unlabored BP Systolic 180 mm[Hg] Comments: Patient Position: Sitting; Cuff Location: Left Arm; Cuff Size: Standard BP Diastolic 110 mm[Hg] Comments: Patient Position: Sitting; Cuff Location: Left Arm; Cuff Size: Standard Weight 171 lb Height 63.75 in Body Mass Index Calculated 29.58 kg/m2 Body Surface Area Calculated 1.82 m2 :05 Temperature 97.8 f Comments: Method: Oral Pulse 70 /min Comments: Pattern: Regular Respiration Rate 18 /min Comments: Pattern: Unlabored BP Systolic 132 mm[Hg] Comments: Patient Position: Sitting; Cuff Location: Left Arm; Cuff Size: Standard BP Diastolic 86 mm[Hg] Comments: Patient Position: Sitting; Cuff Location: Left Arm; Cuff Size: Standard Weight 160 lb Height 63.75 in Body Mass Index Calculated 27.68 kg/m2 Body Surface Area Calculated 1.77 m2 :20 Temperature 97.2 f Comments: Method: Oral Pulse 60 /min Comments: Pattern: Regular Respiration Rate 16 /min Comments: Pattern: Unlabored BP Systolic 126 mm[Hg] Comments: Patient Position: Sitting; Cuff Location: Left Arm; Cuff Size: Large BP Diastolic 86 mm[Hg] Comments: Patient Position: Sitting; Cuff Location: Left Arm; Cuff Size: Large Weight 158 lb Height 63.75 in Body Mass Index Calculated 27.33 kg/m2 Body Surface Area Calculated 1.76 m2 Results Date Description Value Details :29 LIPID PANEL (63932) Comments: Dec; PATIENT WAS FASTINGPERFORMED BY: [facility]CoSaint [facility] CenterIqlwcb0880 [facility] [id number] LDL/HDL Ratio 2.1 {ratio} (Normal) Range: 0.0-3.2 Comments: LDL/HDL Ratio Men Women 1/2 Avg.Risk 1.0 1.5 Av g.Risk 3.6 3.2 2X Avg.Risk 6.2 5.0 3X Avg.Risk 8.0 6.1 LDL Cholesterol Calc 131 mg/dL (Abnormal) Range: 0-99 VLDL Cholesterol Suraj 16 mg/dL (Normal) Range: 5-40 HDL Cholesterol 62 mg/dL (Normal) Comments: Effective January 05, 2018, HDL Cholesterol reference interval will be changing to: Male Female 40 - [id number] 50 - [id number] Triglycerides 80 mg/dL (Normal) Range: 0-149 Cholesterol, Total 209 mg/dL (Abnormal) Range: 100-199 :29 MICROALBUMIN: CREATININE RATIO Comments: today; PATIENT WAS FASTINGPERFORMED BY: [facility] [id number] ([id number]) AND (56969) Alb/Creat Ratio 25.4 {mg/g_creat} (Normal) Range: 0.0-30.0 Comments: Normal: 0.0 - 30.0 Albuminuria: 31.0 - 300.0 Clinical albuminuria: >300.0 Albumin, Urine 30.6 ug/mL (Normal) Creatinine, Urine 120.6 mg/dL (Normal) :29 CALCIFEDIOL (72417) Comments: dec 2017; PATIENT WAS FASTINGPERFORMED BY: [facility] [id number] Vitamin D, 25-Hydroxy 45.0 ng/mL (Normal) Range: 30.0-100.0 Comments: Vitamin D deficiency has been defined by the [place] ofMedicine and an Endocrine Society practice guideline as alevel of serum 25-OH vitamin D less than 20 ng/mL (1,2).The Endocrine Society went on to further define vitamin Dinsufficiency as a level between 21 and 29 ng/mL (2).1. IOM ([place] of Medicine). 2010. Dietary reference intakes for calcium and D. [place]: The National Academies Press.2. Brianne MF, Macy NC, Briana CROSS, et al. Evaluation, treatment, and prevention of vitamin D deficiency: an Endocrine Society clinical practice guideline. JCEM. 2010; 96(7):1911-30. :29 HGB A1C (22702) Comments: Dec 2017; PATIENT WAS FASTINGPERFORMED BY: [email or web address] [facility] [id number] Hemoglobin A1c 5.9 % (Abnormal) Range: 4.8-5.6 Comments: . Prediabetes: 5.7 - 6.4 Diabetes: >6.4 Glycemic control for adults with diabetes: <7.0 :29 TSH (THYROID STIMULATING Comments: dec 2017; PATIENT WAS FASTINGPERFORMED BY: Saffron DigitalDublin [place] [id number] HORMONE) (14510) TSH 4.670 {uIU/mL} (Abnormal) Range: 0.450-4.500 97-Umu-37340:51 Microscopic Examination Comments: PATIENT WAS FASTINGPERFORMED BY: [place] [id number] [facility] [id number] Bacteria None seen (Normal) Mucus Threads Present (Normal) Epithelial Cells (non renal) 0-10 {/hpf} (Normal) Range: 0 - 10 RBC 0-2 {/hpf} (Normal) Range: 0 - 2 WBC 0-5 {/hpf} (Normal) Range: 0 - 5 :51 Lipid Panel (60655) Comments: PATIENT WAS FASTINGPERFORMED BY: [facility]6370 [facility] [id number] LDL/HDL Ratio 2.1 {ratio_units} (Normal) Range: 0.0-3.2 Comments: LDL/HDL Ratio Men Women 1/2 Avg.Risk 1.0 1.5 Av g.Risk 3.6 3.2 2X Avg.Risk 6.2 5.0 3X Avg.Risk 8.0 6.1 LDL Cholesterol Calc 124 mg/dL (Abnormal) Range: 0-99 VLDL Cholesterol Suraj 18 mg/dL (Normal) Range: 5-40 HDL Cholesterol 58 mg/dL (Normal) Triglycerides 90 mg/dL (Normal) Range: 0-149 Cholesterol, Total 200 mg/dL (Abnormal) Range: 100-199 :51 Metabolic Panel, Comprehensive Comments: PATIENT WAS FASTINGPERFORMED BY: [place] [id number] [facility] [id number] ([id number]) ALT (SGPT) 25 [iU]/L (Normal) Range: 0-32 AST (SGOT) 21 [iU]/L (Normal) Range: 0-40 Alkaline Phosphatase 104 [iU]/L (Normal) Range: 39-117 Bilirubin, Total 0.2 mg/dL (Normal) Range: 0.0-1.2 A/G Ratio 1.2 (Normal) Range: 1.2-2.2 Globulin, Total 3.3 g/dL (Normal) Range: 1.5-4.5 Albumin 4.0 g/dL (Normal) Range: 3.5-5.5 Protein, Total 7.3 g/dL (Normal) Range: 6.0-8.5 Calcium 9.1 mg/dL (Normal) Range: 8.7-10.2 Carbon Dioxide, Total 27 mmol/L (Normal) Range: 18-29 Chloride 103 mmol/L (Normal) Range: 96-106 Potassium 4.0 mmol/L (Normal) Range: 3.5-5.2 Sodium 143 mmol/L (Normal) Range: 134-144 BUN/Creatinine Ratio 14 (Normal) Range: 9-23 eGFR If Africn Am 86 mL/min/1.73 (Normal) eGFR If NonAfricn Am 74 mL/min/1.73 (Normal) Creatinine 0.87 mg/dL (Normal) Range: 0.57-1.00 BUN 12 mg/dL (Normal) Range: 6-24 Glucose 103 mg/dL (Abnormal) Range: 65-99 :51 URINALYSIS (74120) Comments: PATIENT WAS FASTINGPERFORMED BY: [place] [id number] Microscopic Examination See below: (Normal) Comments: Microscopic was indicated and was performed. Nitrite, Urine Negative (Normal) Urobilinogen,Semi-Qn 0.2 mg/dL (Normal) Range: 0.2-1.0 Bilirubin Negative (Normal) Occult Blood Negative (Normal) Ketones Negative (Normal) Glucose Negative (Normal) Protein Negative (Normal) WBC Esterase 1+ (Abnormal) Appearance Clear (Normal) Urine-Color Yellow (Normal) pH 6.5 (Normal) Range: 5.0-7.5 Specific [place] 1.017 (Normal) Range: 1.005-1.030 :51 MICROALBUMIN: CREATININE RATIO Comments: PATIENT WAS FASTINGPERFORMED BY: [email or web address] [facility] [id number] ([id number]) AND (39436) Alb/Creat Ratio 69.2 {mg/g_creat} (Abnormal) Range: 0.0-30.0 Albumin, Urine 58.1 ug/mL (Normal) Creatinine, Urine 83.9 mg/dL (Normal) 37-Evd-78084:51 TSH (86153) Comments: PATIENT WAS FASTINGPERFORMED BY: [facility]CoSaint [facility] CenterIhrndu0428 [facility] [id number] TSH 1.460 {uIU/mL} (Normal) Range: 0.450-4.500 :51 CBC, Platelets & Auto Diff Comments: PATIENT WAS FASTINGPERFORMED BY: [facility]CoSaint [facility] CenterVdgfha0875 [facility] [id number] (69697) Immature Grans (Abs) 0.0 {x10E3/uL} (Normal) Range: 0.0-0.1 Immature Granulocytes 0 % (Normal) Baso (Absolute) 0.1 {x10E3/uL} (Normal) Range: 0.0-0.2 Eos (Absolute) 0.3 {x10E3/uL} (Normal) Range: 0.0-0.4 Monocytes(Absolute) 0.4 {x10E3/uL} (Normal) Range: 0.1-0.9 Lymphs (Absolute) 1.8 {x10E3/uL} (Normal) Range: 0.7-3.1 Neutrophils (Absolute) 3.3 {x10E3/uL} (Normal) Range: 1.4-7.0 Basos 1 % (Normal) Eos 5 % (Normal) Monocytes 6 % (Normal) Lymphs 30 % (Normal) Neutrophils 58 % (Normal) Platelets 256 {x10E3/uL} (Normal) Range: 150-379 RDW 15.8 % (Abnormal) Range: 12.3-15.4 MCHC 33.7 g/dL (Normal) Range: 31.5-35.7 MCH 27.4 pg (Normal) Range: 26.6-33.0 MCV 81 fL (Normal) Range: 79-97 Hematocrit 39.5 % (Normal) Range: 34.0-46.6 Hemoglobin 13.3 g/dL (Normal) Range: 11.1-15.9 RBC 4.86 {x10E6/uL} (Normal) Range: 3.77-5.28 WBC 5.8 {x10E3/uL} (Normal) Range: 3.4-10.8 :51 HGB A1C (79219) Comments: PATIENT WAS FASTINGPERFORMED BY: CB [facility] Gytpxh0507 Sam RoadDublin [place] [id number] Hemoglobin A1c 5.9 % (Abnormal) Range: 4.8-5.6 Comments: . Pre-diabetes: 5.7 - 6.4 Diabetes: >6.4 Glycemic control for adults with diabetes: <7.0 :23 HGB A1C (63612) Comments: Today; PATIENT NOT FASTINGPERFORMED BY: CB [facility] Pxueuf9948 Sam RoadDublin [place] [id number] Hemoglobin A1c 5.7 % (Abnormal) Range: 4.8-5.6 Comments: . Pre-diabetes: 5.7 - 6.4 Diabetes: >6.4 Glycemic control for adults with diabetes: <7.0 :08 HGB A1C (63667) Comments: today; PATIENT NOT FASTINGPERFORMED BY: CB [facility] Vvtudn0849 [address] RoadDublin [place] [id number] Hemoglobin A1c 6.0 % (Abnormal) Range: 4.8-5.6 Comments: . Pre-diabetes: 5.7 - 6.4 Diabetes: >6.4 Glycemic control for adults with diabetes: <7.0 :08 GLUCOSE (72571) Comments: today; PATIENT NOT FASTINGPERFORMED BY: CB [facility] Wdnchg5701 [address] RoadDublin [place] [id number] Glucose, Serum 75 mg/dL (Normal) Range: 65-99 40-Xza-419165:08 CALCIFEDIOL (55437) Comments: today; PATIENT NOT FASTINGPERFORMED BY: CB [facility] Lelruu8998 [address] RoadDublin [place] [id number] Vitamin D, 25-Hydroxy 22.1 ng/mL (Abnormal) Range: 30.0-100.0 Comments: Vitamin D deficiency has been defined by the [place] of[place]icine and an Endocrine Society practice guideline as alevel of serum 25-OH vitamin D less than 20 ng/mL (1,2).The Endocrine Society went on to further define vitamin Dinsufficiency as a level between 21 and 29 ng/mL (2).1. IOM ([place] of Medicine). 2010. Dietary reference intakes for calcium and D. [place]: The National Academies Press.2. Brianne MF, Macy NC, Briana CROSS, et al. Evaluation, treatment, and prevention of vitamin D deficiency: an Endocrine Society clinical practice guideline. JCEM. 2010; 96(7):7071-30. 65-Izc-528982:08 TSH (THYROID STIMULATING Comments: today; PATIENT NOT FASTINGPERFORMED BY: [employer] [facility] Jziywx1215 Sam RoadDublin [place] [id number] HORMONE) (45722) TSH 0.732 {uIU/mL} (Normal) Range: 0.450-4.500 :22 T3, FREE (TRIDOTHYRONINE) (15292) Comments: PATIENT WAS FASTINGPERFORMED BY: [facility] Yjbfdn9635 Sam RoadDublin [place] [id number] Triiodothyronine,Free,Serum 2.6 pg/mL (Normal) Range: 2.0-4.4 :22 T4, FREE (THYROXINE) (28279) Comments: PATIENT WAS FASTINGPERFORMED BY: [employer] [facility] Tcjohe2039 Sam RoadDublin [place] [id number] T4,Free(Direct) 1.75 ng/dL (Normal) Range: 0.82-1.77 :22 HGB A1C (40036) Comments: PATIENT WAS FASTINGPERFORMED BY: [facility] Ogxcod7274 Sam RoadDublin [place] [id number] Hemoglobin A1c 6.1 % (Abnormal) Range: 4.8-5.6 Comments: . Pre-diabetes: 5.7 - 6.4 Diabetes: >6.4 Glycemic control for adults with diabetes: <7.0 [id number]-[id number]:13 MICROALBUMIN: CREATININE Comments: PATIENT NOT FASTINGPERFORMED BY: [facility] Mnxpjw5162 Sam RoadDublin [place] [id number] Information: [id number] RATIO (87184) AND (81027) Microalb/Creat Ratio 15.5 {mg/g_creat} (Normal) Range: 0.0-30.0 Microalbumin, Urine 9.8 ug/mL (Normal) Creatinine, Urine 63.3 mg/dL (Normal) :22 VITAMIN B12 AND FOLATES Comments: PATIENT WAS FASTINGPERFORMED BY: AbakanBarnes-Jewish HospitalGpqskx5709 [facility]in [place] [id number] (85889) Folate (Folic Acid), Serum 9.6 ng/mL (Normal) Comments: A serum folate concentration of less than 3.1 ng/mL isconsidered to represent clinical deficiency. Vitamin B12 573 pg/mL (Normal) Range: 211-946 :22 CALCIFEDIOL (21073) Comments: PATIENT WAS FASTINGPERFORMED BY: AbakanBarnes-Jewish HospitalSmikrj7398 [facility] [id number] Vitamin D, 25-Hydroxy 18.8 ng/mL (Abnormal) Range: 30.0-100.0 Comments: Vitamin D deficiency has been defined by the [place] of[facility] and an Endocrine Society practice guideline as alevel of serum 25-OH vitamin D less than 20 ng/mL (1,2).The Endocrine Society went on to further define vitamin Dinsufficiency as a level between 21 and 29 ng/mL (2).1. IOM ([place] of Medicine). 2010. Dietary reference intakes for calcium and D. [place]: The National Academies Press.2. Brianne MF, Macy NAVARRETE, Briana CROSS, et al. Evaluation, treatment, and prevention of vitamin D deficiency: an Endocrine Society clinical practice guideline. JCEM. 2010; 96(7):1911-30. :22 TSH (THYROID STIMULATING Comments: PATIENT WAS FASTINGPERFORMED BY: LabRiple[facility] [facility] Puthfj3292 [facility] [id number] HORMONE) (44797) TSH 0.127 {uIU/mL} (Abnormal) Range: 0.450-4.500 :22 LIPID PANEL (66397) Comments: PATIENT WAS FASTINGPERFORMED BY: [facility] Czvyda2259 [facility] [id number] LDL/HDL Ratio 2.3 {ratio_units} (Normal) Range: 0.0-3.2 Comments: LDL/HDL Ratio Men Women 1/2 Avg.Risk 1.0 1.5 Av g.Risk 3.6 3.2 2X Avg.Risk 6.2 5.0 3X Avg.Risk 8.0 6.1 LDL Cholesterol Calc 111 mg/dL (Abnormal) Range: 0-99 VLDL Cholesterol Suraj 27 mg/dL (Normal) Range: 5-40 HDL Cholesterol 49 mg/dL (Normal) Triglycerides 133 mg/dL (Normal) Range: 0-149 Cholesterol, Total 187 mg/dL (Normal) Range: 100-199 56-Gin-66021:22 METABOLIC PANEL, COMPREHENSIVE Comments: PATIENT WAS FASTINGPERFORMED BY: LabCoSaint Francis Medical CenterZlocjy0006 [facility] [id number] (57178) ALT (SGPT) 31 [iU]/L (Normal) Range: 0-32 AST (SGOT) 31 [iU]/L (Normal) Range: 0-40 Alkaline Phosphatase, S 105 [iU]/L (Normal) Range: 39-117 Bilirubin, Total 0.2 mg/dL (Normal) Range: 0.0-1.2 A/G Ratio 1.4 (Normal) Range: 1.1-2.5 Comments: Effective May 27, 2016 the reference interval for A/G Ratio will be changing to: Age Male Female 0 - 7 d ays 1.1 - 2.3 1.1 - 2.3 8 - 30 days 1.2 - 2.8 1.2 - 2.8 1 - 6 months 1.3 - 3.6 1.3 - 3.6 7 months - 5 years 1.5 - 2.6 1.5 - 2.6 > 5 years 1.2 - 2.2 1.2 - 2.2 Globulin, Total 3.1 g/dL (Normal) Range: 1.5-4.5 Albumin, Serum 4.2 g/dL (Normal) Range: 3.5-5.5 Protein, Total, Serum 7.3 g/dL (Normal) Range: 6.0-8.5 Calcium, Serum 9.2 mg/dL (Normal) Range: 8.7-10.2 Carbon Dioxide, Total 21 mmol/L (Normal) Range: 18-29 Chloride, Serum 106 mmol/L (Normal) Range: 96-106 Potassium, Serum 4.6 mmol/L (Normal) Range: 3.5-5.2 Sodium, Serum 143 mmol/L (Normal) Range: 134-144 BUN/Creatinine Ratio 16 (Normal) Range: 9-23 eGFR If Africn Am 91 mL/min/1.73 (Normal) eGFR If NonAfricn Am 79 mL/min/1.73 (Normal) Creatinine, Serum 0.83 mg/dL (Normal) Range: 0.57-1.00 BUN 13 mg/dL (Normal) Range: 6-24 Glucose, Serum 95 mg/dL (Normal) Range: 65-99 27-Qva-24282:22 CBC, PLATELETS & AUT DIFF Comments: PATIENT WAS FASTINGPERFORMED BY: LabCoSaint Francis Medical CenterScpnas9104 [facility] [id number] (50988) Immature Grans (Abs) 0.0 {x10E3/uL} (Normal) Range: 0.0-0.1 Immature Granulocytes 0 % (Normal) Baso (Absolute) 0.0 {x10E3/uL} (Normal) Range: 0.0-0.2 Eos (Absolute) 0.1 {x10E3/uL} (Normal) Range: 0.0-0.4 Monocytes(Absolute) 0.3 {x10E3/uL} (Normal) Range: 0.1-0.9 Lymphs (Absolute) 1.2 {x10E3/uL} (Normal) Range: 0.7-3.1 Neutrophils (Absolute) 3.3 {x10E3/uL} (Normal) Range: 1.4-7.0 Basos 0 % (Normal) Eos 2 % (Normal) Monocytes 6 % (Normal) Lymphs 25 % (Normal) Neutrophils 67 % (Normal) Platelets 271 {x10E3/uL} (Normal) Range: 150-379 RDW 15.3 % (Normal) Range: 12.3-15.4 MCHC 32.5 g/dL (Normal) Range: 31.5-35.7 MCH 27.4 pg (Normal) Range: 26.6-33.0 MCV 84 fL (Normal) Range: 79-97 Hematocrit 42.1 % (Normal) Range: 34.0-46.6 Hemoglobin 13.7 g/dL (Normal) Range: 11.1-15.9 RBC 5.00 {x10E6/uL} (Normal) Range: 3.77-5.28 WBC 4.9 {x10E3/uL} (Normal) Range: 3.4-10.8 34-Zmi-955584:00 IGP, Aptima HPV, rfx Comments: No. of containers..01 CYTYC Thin Prep VialPATIENT NOT FASTINGPERFORMED BY: =G [facility] Xpuxmcypqy351 [facility]zaHar[facility] Hospitalrlesraritan [facility] [place] [id number] BY: WB [facility] Tmbjiyiman030 [facility]zaHarrington [facility] Hospitalrlesraritan [facility] [place] [id number] 16/18,45 HPV Aptima Negative (Normal) Comments: This test detects fourteen high-risk HPV types (16/18/31/33/35/39/45/51/52/56/58/59/66/68) without differentiation. Note: PAPSMR (Normal) Comments: The Pap smear is a screening test designed to aid in the detection ofpremalignant and malignant conditions of the uterine cervix. It is not adiagnostic procedure and should not be used as the sole mean s of detectingcervical cancer. Both false-positive and false-negative reports do occur. .This liquid based ThinPrep(R) pap test w as screened with theuse of an image guided system. See Note . (Normal) DIAGNOSIS: SPRCS (Normal) Comments: NEGATIVE FOR INTRAEPITHELIAL LESION AND MALIGNANCY.Satisfactory for evaluation. Endocervical and/or squamous metaplasticcells (endocervical component) are present.V72.31 ; Routine gynecolog ical hailey Piper, Chief Building Inspector (ASCP) 81-Zas-089335:00 Thin Prep Pap (38308) Comments: No. of containers..01 CYTYC Thin Prep VialPATIENT NOT FASTINGPERFORMED BY: =G [facility] Dhwxadkfih135 [facility] CenterzaHarrington Memorial Hospitalrleston [place] [id number] BY: WB [facility] Berhgvilkd453 [address] PlazaAliciarlest on [place] [id number] Information: [id number] Age Gdln ACOG Testing 30-65 (Normal) 41-Hau-155597:14 Antithyroglobulin Ab Comments: PATIENT WAS FASTINGPERFORMED BY: [facility] Txfumd6[address] Sam RoadDublin [place] [id number] Thyroglobulin, Antibody <1.0 {IU/mL} Range: 0.0-0.9 (Normal) Comments: Low positive Thyroglobulin antibodies are seen in a portion of theasymptomatic populations.Antithyroglobulin antibodies measured by [facility] [place] [facility] 14-Jul-19 TSH 0.472 {uIU/mL} Comments: PATIENT WAS FASTINGPERFORMED BY: CB [facility] Ceappo0211 Sam RoadDublin [place] [id number] Information: [id number] 1511:14 (Normal) Range: 0.450-4.500 14-Jul-19 Written Authorization WAR (Normal) Comments: PATIENT WAS FASTINGPERFORMED BY: CB [facility] Akgboz1345 Sam RoadDublin [place] [id number] 1511:14 Comments: Written Authorization Received.Authorization received from NORIS FREEMAN [id number] by Tasha Balderas 38-Czw-896318:14 CALCIFEDIOL (66735) Comments: PATIENT WAS FASTINGPERFORMED BY: [facility] Gdqinq5455 Sam RoadDublin [place] [id number] Vitamin D, 25-Hydroxy 16.3 ng/mL (Abnormal) Range: 30.0-100.0 Comments: Vitamin D deficiency has been defined by the [place] ofMedicine and an Endocrine Society practice guideline as alevel of serum 25-OH vitamin D less than 20 ng/mL (1,2).The Endocrine Society went on to further define vitamin Dinsufficiency as a level between 21 and 29 ng/mL (2).1. IOM ([place] of Medicine). 2010. Dietary reference intakes for calcium and D. [place]: The National Academies Press.2. Brianne MF, Macy [place], Briana CROSS, et al. Evaluation, treatment, and prevention of vitamin D deficiency: an Endocrine Society clinical practice guideline. JCEM. 2010; 96(7):1911-30. 18-Whl-294619:14 LIPID PANEL (03302) Comments: PATIENT WAS FASTINGPERFORMED BY: CB [facility] Sgkspa2947 Sam RoadDublin [place] [id number] LDL/HDL Ratio 1.9 {ratio_units} (Normal) Range: 0.0-3.2 Comments: LDL/HDL Ratio Men Women 1/2 Avg.Risk 1.0 1.5 Av g.Risk 3.6 3.2 2X Avg.Risk 6.2 5.0 3X Avg.Risk 8.0 6.1 LDL Cholesterol Calc 106 mg/dL (Abnormal) Range: 0-99 VLDL Cholesterol Suraj 10 mg/dL (Normal) Range: 5-40 HDL Cholesterol 57 mg/dL (Normal) Comments: According to ATP-III Guidelines, HDL-C >59 mg/dL is considered anegative risk factor for CHD. Triglycerides 49 mg/dL (Normal) Range: 0-149 Cholesterol, Total 173 mg/dL (Normal) Range: 100-199 28-Cwi-111403:14 METABOLIC PANEL, COMPREHENSIVE Comments: PATIENT WAS FASTINGPERFORMED BY: [facility] Fwwxor5279 [facility] [id number] ([id number]) ALT (SGPT) 20 [iU]/L (Normal) Range: 0-32 AST (SGOT) 21 [iU]/L (Normal) Range: 0-40 Alkaline Phosphatase, S 100 [iU]/L (Normal) Range: 39-117 Bilirubin, Total 0.3 mg/dL (Normal) Range: 0.0-1.2 A/G Ratio 1.4 (Normal) Range: 1.1-2.5 Globulin, Total 2.9 g/dL (Normal) Range: 1.5-4.5 Albumin, Serum 4.2 g/dL (Normal) Range: 3.5-5.5 Protein, Total, Serum 7.1 g/dL (Normal) Range: 6.0-8.5 Calcium, Serum 9.6 mg/dL (Normal) Range: 8.7-10.2 Carbon Dioxide, Total 26 mmol/L (Normal) Range: 18-29 Chloride, Serum 102 mmol/L (Normal) Range: 97-108 Potassium, Serum 4.5 mmol/L (Normal) Range: 3.5-5.2 Sodium, Serum 144 mmol/L (Normal) Range: 134-144 BUN/Creatinine Ratio 20 (Normal) Range: 9-23 eGFR If Africn Am 76 mL/min/1.73 (Normal) eGFR If NonAfricn Am 66 mL/min/1.73 (Normal) Creatinine, Serum 0.98 mg/dL (Normal) Range: 0.57-1.00 BUN 20 mg/dL (Normal) Range: 6-24 Glucose, Serum 91 mg/dL (Normal) Range: 65-99 22-Rkq-401776:14 CBC, PLATELETS & MANUAL Comments: PATIENT WAS FASTINGPERFORMED BY: LabMary [facility] Hospital6370 [facility] [id number] Information: [id number] DIFF (61331) Immature Grans (Abs) 0.0 {x10E3/uL} (Normal) Range: 0.0-0.1 Immature Granulocytes 0 % (Normal) Baso (Absolute) 0.0 {x10E3/uL} (Normal) Range: 0.0-0.2 Eos (Absolute) 0.1 {x10E3/uL} (Normal) Range: 0.0-0.4 Monocytes(Absolute) 0.4 {x10E3/uL} (Normal) Range: 0.1-0.9 Lymphs (Absolute) 2.2 {x10E3/uL} (Normal) Range: 0.7-3.1 Neutrophils (Absolute) 3.2 {x10E3/uL} (Normal) Range: 1.4-7.0 Basos 1 % (Normal) Eos 2 % (Normal) Monocytes 7 % (Normal) Lymphs 36 % (Normal) Neutrophils 54 % (Normal) Platelets 261 {x10E3/uL} (Normal) Range: 150-379 RDW 16.8 % (Abnormal) Range: 12.3-15.4 MCHC 33.2 g/dL (Normal) Range: 31.5-35.7 MCH 28.6 pg (Normal) Range: 26.6-33.0 MCV 86 fL (Normal) Range: 79-97 Hematocrit 37.1 % (Normal) Range: 34.0-46.6 Hemoglobin 12.3 g/dL (Normal) Range: 11.1-15.9 RBC 4.30 {x10E6/uL} (Normal) Range: 3.77-5.28 WBC 6.0 {x10E3/uL} (Normal) Range: 3.4-10.8 5-Epx-657087:25 Thyroglobulin Reflex Profile Comments: PATIENT NOT FASTINGPERFORMED BY: [facility] Jrfddz2146 [facility] [id number] Thyroglobulin, Antibody <1.0 {IU/mL} Range: 0.0-0.9 (Normal) Comments: Antithyroglobulin antibodies measured by [facility] Thyroglobulin, Serum 0.4 ng/mL Comments: PATIENT NOT FASTINGPERFORMED BY: [employer]Co Juikpj7504 [facility] [id number] :25 (Abnormal) Range: 1.5-38.5 Comments: According to the National Academy of Clinical Biochemistry, thereference interval for Thyroglobulin (TG) should be related toeuthyroid patients and not for patients who underwent thyroidectomy.TG refere nce intervals for these patients depend on the residualmass of the thyroid tissue left after surgery. Establishing apost-operative baseline is recommended.The assay limit of quantitation is 0.1 ng/mL .Thyroglobulin measured by [facility] Immunometric Assay :25 Metabolic Panel, Basic Comments: PATIENT NOT FASTINGPERFORMED BY: [facility] Ttgxyh8234 [facility] [id number] Information: [id number] ([id number]) Calcium, Serum 9.5 mg/dL (Normal) Range: 8.7-10.2 Carbon Dioxide, Total 26 mmol/L (Normal) Range: 19-28 Chloride, Serum 101 mmol/L (Normal) Range: 97-108 Potassium, Serum 3.9 mmol/L (Normal) Range: 3.5-5.2 BUN/Creatinine Ratio 18 (Normal) Range: 9-23 eGFR If Africn Am 83 mL/min/1.73 (Normal) Sodium, Serum 141 mmol/L (Normal) Range: 134-144 BUN 16 mg/dL (Normal) Range: 6-24 Creatinine, Serum 0.91 mg/dL (Normal) Range: 0.57-1.00 eGFR If NonAfricn Am 72 mL/min/1.73 (Normal) Glucose, Serum 95 mg/dL (Normal) Range: 65-99 :22 CBC with manual diff Comments: PATIENT WAS FASTINGPERFORMED BY: Accordent TechnologiesSaint Francis Medical CenterYloufg9753 [facility] [id number] Information: [id number] (44185) Immature Grans (Abs) 0.0 {x10E3/uL} (Normal) Range: 0.0-0.1 Immature Granulocytes 0 % (Normal) Range: 0-2 Baso (Absolute) 0.0 {x10E3/uL} (Normal) Range: 0.0-0.2 Eos (Absolute) 0.2 {x10E3/uL} (Normal) Range: 0.0-0.4 Monocytes(Absolute) 0.3 {x10E3/uL} (Normal) Range: 0.1-1.0 Lymphs (Absolute) 1.8 {x10E3/uL} (Normal) Range: 0.7-4.5 Neutrophils (Absolute) 3.0 {x10E3/uL} (Normal) Range: 1.8-7.8 Basos 1 % (Normal) Range: 0-3 Eos 4 % (Normal) Range: 0-7 Monocytes 6 % (Normal) Range: 4-13 Lymphs 34 % (Normal) Range: 14-46 Neutrophils 55 % (Normal) Range: 40-74 Platelets 233 {x10E3/uL} (Normal) Range: 140-415 RDW 15.5 % (Abnormal) Range: 12.3-15.4 MCHC 33.4 g/dL (Normal) Range: 31.5-35.7 MCH 27.8 pg (Normal) Range: 26.6-33.0 MCV 83 fL (Normal) Range: 79-97 Hematocrit 38.9 % (Normal) Range: 34.0-46.6 Hemoglobin 13.0 g/dL (Normal) Range: 11.1-15.9 RBC 4.67 {x10E6/uL} (Normal) Range: 3.77-5.28 WBC 5.3 {x10E3/uL} (Normal) Range: 4.0-10.5 56-Xtz-06987:22 Lipid Panel (26729) Comments: PATIENT WAS FASTINGPERFORMED BY: LabCoSaint Francis Medical CenterKzwfww7261 [facility] [id number] LDL/HDL Ratio 1.9 {ratio_units} (Normal) Range: 0.0-3.2 LDL Cholesterol Calc 110 mg/dL (Abnormal) Range: 0-99 VLDL Cholesterol Suraj 11 mg/dL (Normal) Range: 5-40 HDL Cholesterol 58 mg/dL (Normal) Comments: According to ATP-III Guidelines, HDL-C >59 mg/dL is considered anegative risk factor for CHD. Triglycerides 57 mg/dL (Normal) Range: 0-149 Cholesterol, Total 179 mg/dL (Normal) Range: 100-199 45-Uwy-44545:22 Metabolic Panel, Comprehensive Comments: PATIENT WAS FASTINGPERFORMED BY: LabCoSaint Francis Medical CenterBfrltp3875 [facility] [id number] (21032) ALT (SGPT) 20 [iU]/L (Normal) Range: 0-32 AST (SGOT) 20 [iU]/L (Normal) Range: 0-40 Alkaline Phosphatase, S 102 [iU]/L (Normal) Range: 25-150 Comments: Please note reference interval change Bilirubin, Total 0.2 mg/dL (Normal) Range: 0.0-1.2 A/G Ratio 1.3 (Normal) Range: 1.1-2.5 Globulin, Total 3.0 g/dL (Normal) Range: 1.5-4.5 Albumin, Serum 4.0 g/dL (Normal) Range: 3.5-5.5 Protein, Total, Serum 7.0 g/dL (Normal) Range: 6.0-8.5 Calcium, Serum 9.1 mg/dL (Normal) Range: 8.7-10.2 Carbon Dioxide, Total 22 mmol/L (Normal) Range: 19-28 Chloride, Serum 106 mmol/L (Normal) Range: 97-108 Potassium, Serum 4.1 mmol/L (Normal) Range: 3.5-5.2 Sodium, Serum 142 mmol/L (Normal) Range: 134-144 BUN/Creatinine Ratio 14 (Normal) Range: 9-23 eGFR If Africn Am 102 mL/min/1.73 (Normal) eGFR If NonAfricn Am 88 mL/min/1.73 (Normal) Creatinine, Serum 0.77 mg/dL (Normal) Range: 0.57-1.00 BUN 11 mg/dL (Normal) Range: 6-24 Glucose, Serum 102 mg/dL (Abnormal) Range: 65-99 14-Txr-40678:22 TSH (76401) Comments: PATIENT WAS FASTINGPERFORMED BY: [facility]6370 [facility] [id number] TSH 0.184 {uIU/mL} (Abnormal) Range: 0.450-4.500 :22 THYROGLOBULIN ANTIBODY (55938) Comments: PATIENT WAS FASTINGPERFORMED BY: [facility]6370 [facility] [id number] Antithyroglobulin Ab <20 {IU/mL} (Normal) Range: 0-40 Comments: Siemens (DPC) ICMA Methodology 21-Csa-449873:14 PAPIG0 Comments: CYTOLOGY INFORMATION:- CLINICAL INFORMATION: - DATE LMP/MENOPAUSE: - COLLECTION VIAL: Thin Prep Vial- EMERGENCY MEDICINE SOURCE: - COLLECTION TECHNIQUE: tPAPSMR Comment (Normal) Comments: The Pap smear is a screening test designed to aid in thedetection of premalignant and malignant conditions of theuterine cervix. It is not a diagnostic procedure andshould not be used as the sole means of detecting cervicalcancer. Both false-positive and false-negative reports dooccur. . tCOM2 . (Normal) tDIAG Comment (Normal) Comments: NEGATIVE FOR INTRAEPITHELIAL LESION AND MALIGNANCY.Satisfactory for evaluation. Endocervical and/or squamous metaplasticcells (endocervical component) are present.Bijal Guaman, Chief Building Inspector (ASCP )This liquid based ThinPrep(R) pap test was screened withthe use of an image guided system.Performed at: [address] [id number] Director: Mario Crawley MD, Phone: [phone] 15-Hgu-317679:14 CBCMD ANISO 1+ (Normal) RBCM N CHROM {NORMAL} (Normal) PE ADEQUATE (Normal) BAS 1 % (Normal) Range: 0-1 EOS 5 % (Normal) Range: 0-5 MON 4 % (Normal) Range: 0-10 LYMPH 38 % (Normal) Range: 19-41 PMN 52 % (Normal) Range: 47-70 YANELI 100 (Normal) ANC 3.1 3/uL (Normal) Range: 2.0-7.7 PLT 242 K/mm3 (Normal) Range: 150-450 RDW 14.9 % (Abnormal) Range: 11.6-14.6 MCHC 34.0 g/dL (Normal) Range: 32-36 MCH 29.1 pg (Normal) Range: 27.0-32.0 MCV 85.7 fL (Normal) Range: 81-99 HCT 38.5 % (Normal) Range: 37-47 HGB 13.1 g/dL (Normal) Range: 12.0-16.0 RBC 4.50 {M/mm3} (Normal) Range: 4.2-5.4 WBC 5.7 K/mm3 (Normal) Range: 4.4-11.0 :14 CMP GAP 8 (Normal) Range: 5-15 CO2 30.0 mmol/L (Normal) Range: 21.0-32.0 CL 104 mmol/L (Normal) Range: 98-107 K 4.7 mmol/L (Normal) Range: 3.5-5.1 NA 142 mmol/L (Normal) Range: 136-145 BIT 0.30 mg/dL (Normal) Range: 0.00-1.00 ALT 30 U/L (Normal) Range: 12-78 ALK 88 U/L (Normal) Range: 50-136 AST 24 U/L (Normal) Range: 15-37 CA 8.9 mg/dL (Normal) Range: 8.5-10.1 AG 1.0 {RATIO} (Normal) Range: 0.9-2.4 GLOB 3.7 g/dL (Normal) Range: 2.7-4.2 ALB 3.8 g/dL (Normal) Range: 3.4-5.0 TPROT 7.5 g/dL (Normal) Range: 6.4-8.2 BC 15.0 {RATIO} (Normal) Range: 10-20 GFRAA 75 mL/min (Normal) GFR 62 mL/min (Normal) CREAT 1.0 mg/dL (Normal) Range: 0.6-1.0 BUN 15 mg/dL (Normal) Range: 7-18 GLU 82 mg/dL (Normal) Range: 70-110 69-Ngj-697442:14 LIPID VLDL 12 mg/dL (Normal) Range: 5-40 LDL 117 mg/dL (Normal) Range: 0-130 HDL 62 mg/dL (Normal) Comments: Reference Range HDL <40 mg/dL Low HDL Cholesterol HDL >or= 60 mg/dL High HDL Cholesterol CHOL 191 mg/dL (Normal) Comments: <200 mg/dL Desirable 200-240 mg/dL Borderline >240 mg/dL High Risk TRIG 58 mg/dL (Normal) Comments: Serum Triglycerides Reference Interval Normal <150 mg/dL Borderline high 150 - 199 mg/dL High 200 - 499 mg/dL Very High > or = 500 mg/dL 17-Urg-347506:14 MIACRE tMICROCREAT 41.5 {mg/g_CRE} (Abnormal) MIALB 27.7 mg/L (Normal) CREU 66.6 mg/dL (Normal) 97-Vzb-439609:14 UAC UMUC 0 SEEN {/hpf} (Normal) UBAC RARE {/hpf} (Normal) UEPIS 0-5 SEEN {/hpf} (Normal) Range: 5-10 URBC 0 SEEN {/hpf} (Normal) Range: 0-5 UWBC 0-5 SEEN {/hpf} (Normal) Range: 0-5 SYDNEY TRACE (Abnormal) UOB NEGATIVE (Normal) ROULA NEGATIVE (Normal) uPROTU NEGATIVE (Normal) UROBU 0.2 EU/dl (Normal) Range: 0.2 - 1.0 MARY 7.0 (Normal) Range: 5.0-8.0 SGU 1.015 (Normal) Range: 1.002-1.030 KETU NEGATIVE mg/dL (Normal) BILIU NEGATIVE (Normal) GLUR NEGATIVE (Normal) UCLAR CLEAR (Normal) UCOL YELLOW (Normal) 5-Izc-683457:26 METABOLIC PANEL, COMPREHENSIVE Comments: PATIENT WAS FASTINGPERFORMED BY: LabCoSaint Francis Medical CenterRdlmey4184 [facility] [id number] ([id number]) ALT (SGPT) 18 [iU]/L (Normal) Range: 0-32 AST (SGOT) 18 [iU]/L (Normal) Range: 0-40 Alkaline Phosphatase, S 100 [iU]/L (Normal) Range: 39-117 Bilirubin, Total 0.3 mg/dL (Normal) Range: 0.0-1.2 A/G Ratio 1.2 (Normal) Range: 1.1-2.5 Globulin, Total 3.5 g/dL (Normal) Range: 1.5-4.5 Albumin, Serum 4.2 g/dL (Normal) Range: 3.5-5.5 Protein, Total, Serum 7.7 g/dL (Normal) Range: 6.0-8.5 Calcium, Serum 9.6 mg/dL (Normal) Range: 8.7-10.2 Carbon Dioxide, Total 25 mmol/L (Normal) Range: 19-28 Chloride, Serum 102 mmol/L (Normal) Range: 97-108 Potassium, Serum 4.0 mmol/L (Normal) Range: 3.5-5.2 Sodium, Serum 141 mmol/L (Normal) Range: 134-144 BUN/Creatinine Ratio 19 (Normal) Range: 9-23 eGFR If Africn Am 86 mL/min/1.73 (Normal) eGFR If NonAfricn Am 74 mL/min/1.73 (Normal) Creatinine, Serum 0.89 mg/dL (Normal) Range: 0.57-1.00 BUN 17 mg/dL (Normal) Range: 6-24 Glucose, Serum 96 mg/dL (Normal) Range: 65-99 4-Tri-877879:26 LIPID PANEL (66734) Comments: PATIENT WAS FASTINGPERFORMED BY: [employer]70 [facility] [id number] LDL/HDL Ratio 2.2 {ratio_units} (Normal) Range: 0.0-3.2 LDL Cholesterol Calc 139 mg/dL (Abnormal) Range: 0-99 VLDL Cholesterol Suraj 16 mg/dL (Normal) Range: 5-40 HDL Cholesterol 63 mg/dL (Normal) Comments: According to ATP-III Guidelines, HDL-C >59 mg/dL is considered anegative risk factor for CHD. Triglycerides 78 mg/dL (Normal) Range: 0-149 Cholesterol, Total 218 mg/dL (Abnormal) Range: 100-199 1-Qxl-226701:26 CBC WITH MANUAL DIFF Comments: PATIENT WAS FASTINGPERFORMED BY: CIHI Psuije3510 [facility] [id number] Information: [id number] ORDER NO DRAW F EE ([id number]) Immature Grans (Abs) 0.0 {x10E3/uL} (Normal) Range: 0.0-0.1 Immature Granulocytes 0 % (Normal) Range: 0-2 Baso (Absolute) 0.0 {x10E3/uL} (Normal) Range: 0.0-0.2 Eos (Absolute) 0.2 {x10E3/uL} (Normal) Range: 0.0-0.4 Monocytes(Absolute) 0.5 {x10E3/uL} (Normal) Range: 0.1-0.9 Lymphs (Absolute) 2.0 {x10E3/uL} (Normal) Range: 0.7-3.1 Neutrophils (Absolute) 3.0 {x10E3/uL} (Normal) Range: 1.4-7.0 Basos 1 % (Normal) Range: 0-3 Eos 4 % (Normal) Range: 0-5 Monocytes 9 % (Normal) Range: 4-12 Lymphs 34 % (Normal) Range: 14-46 Neutrophils 52 % (Normal) Range: 40-74 Platelets 283 {x10E3/uL} (Normal) Range: 155-379 RDW 15.0 % (Normal) Range: 12.3-15.4 MCH 27.5 pg (Normal) Range: 26.6-33.0 MCHC 33.3 g/dL (Normal) Range: 31.5-35.7 Hematocrit 39.9 % (Normal) Range: 34.0-46.6 MCV 83 fL (Normal) Range: 79-97 Hemoglobin 13.3 g/dL (Normal) Range: 11.1-15.9 RBC 4.83 {x10E6/uL} (Normal) Range: 3.77-5.28 WBC 5.8 {x10E3/uL} (Normal) Range: 3.4-10.8 Plan of Care Name Dates Details Instructions Current nonsmoker (Renamed from Current non-smoker) : Follow up in 3 months Indication: Current nonsmoker (Renamed from Current non-smoker) Hypertension, benign : Reviewed Lab Indication: Hypertension, benign Impaired fasting glucose : Eprescribed prescriptions (G8553) Indication: Impaired fasting glucose Hypertension, benign : Follow up in 3 months Indication: Hypertension, benign Hypertension, benign : Eprescribed prescriptions (G8553) Indication: Hypertension, benign Current nonsmoker (Renamed from Current non-smoker) : Follow up in 3 months after June 12 Indication: Current nonsmoker (Renamed from Current non-smoker) Impaired fasting glucose : Eprescribed prescriptions (G8553) Indication: Impaired fasting glucose Gas pain : Follow up in 3 months Indication: Gas pain Gas pain : Celiac Disease and the Gluten-Free Diet: diet Indication: Gas pain Hypertension, benign : Eprescribed prescriptions (G8553) Indication: Hypertension, benign BMI 28.0-28.9,adult : Follow up in 3 months Indication: BMI 28.0-28.9,adult Hypertension, benign : Eprescribed prescriptions (G8553) Indication: Hypertension, benign Thyroid cancer : Follow up in 3 months Indication: Thyroid cancer Thyroid cancer : Eprescribed prescriptions (G8553) Indication: Thyroid cancer Diarrhea : Follow up if no improvement or if symptoms worsen Indication: Diarrhea Vertigo : *Vertigo Education Indication: Vertigo Hypertension, benign : Follow up in 6 months Indication: Hypertension, benign Hypertension, benign : Eprescribed prescriptions (G8553) Indication: Hypertension, benign Upper Respiratory Infection : Eprescribed prescriptions (G8553) Indication: Upper Respiratory Infection Well woman exam : Mammogram *: gynecological health Indication: Well woman exam Rectal discomfort : Follow up if no improvement or if symptoms worsen Indication: Rectal discomfort Rectal discomfort : Hemorrhoids: Brief Version *: hemorrhoids Indication: Rectal discomfort Vitamin D deficiency, unspecified : *ERGOCALCIFEROL DOSAGE PER [place] Indication: Vitamin D deficiency, unspecified Hypertension, benign : Blood Pressure: hypertension Indication: Hypertension, benign Hypertension, benign : Eprescribed prescriptions ([id number]) Indication: Hypertension, benign Hypertension, benign : Blood Pressure: hypertension Indication: Hypertension, benign Hypertension, benign : Continue Current Prescription(s) Indication: Hypertension, benign Achilles tendon pain : Achilles Tendon Injury *: achilles tendon Indication: Achilles tendon pain Hypertension, benign : High Blood Pressure (Essential Hypertension) *: cardiovascular health Indication: Hypertension, benign Well woman exam : Self breast exam Indication: Well woman exam Well woman exam : *Well Female Maintenance (KF) Indication: Well woman exam Well woman exam : Pap/Pelvic/Bimanual/Rectal/Breast Exam was done. Indication: Well woman exam Planned Observations CALCIFEDIOL ([id number])Indication: Vitamin D deficiency, unspecified On: [id number] Request Comments: today HGB A1C ([id number])Indication: Impaired fasting glucose On: [id number] Request Comments: today METABOLIC PANEL, COMPREHENSIVE ([id number])Indication: Hypothyroid On: :23 Request HGB A1C ([id number])Indication: Impaired fasting glucose On: :23 Request LIPID PANEL ([id number])Indication: Hypothyroid On: :23 Request CALCIFEDIOL ([id number])Indication: Vitamin D deficiency, unspecified On: :56 Request Comments: Feb 2017 HGB A1C ([id number])Indication: Impaired fasting glucose On: :53 Request Comments: Feb 2017 T4, FREE (THYROXINE) ([id number])Indication: Hypothyroid On: :53 Request Comments: Feb 2017 T3, FREE (TRIDOTHYRONINE) ([id number])Indication: Hypothyroid On: :52 Request Comments: Feb 2017 TSH (THYROID STIMULATING HORMONE) ([id number])Indication: Hypothyroid On: :52 Request Comments: Feb 2017 TSH (THYROID STIMULATING HORMONE) ([id number])Indication: Hypothyroid On: 59-Nea-280540:59 Request Comments: Do on or around July 08, 2016 HGB A1C ([id number])Indication: Prediabetes On: 21-Zeq-817673:50 Request Comments: to be done after August 28 GLUCOSE ([id number])Indication: Prediabetes On: 12-Vui-842494:50 Request Comments: to be done after August 28 THYROGLOBULIN ANTIBODY ([id number])Indication: Thyroid cancer On: :53 Request THYROGLOBULIN ([id number])Indication: Thyroid cancer On: :51 Request URINALYSIS, W/ MICRO ([id number])Indication: Hypertension, benign On: :51 Request METABOLIC PANEL, COMPREHENSIVE ([id number])Indication: Hypertension, benign On: :51 Request LIPID PANEL ([id number])Indication: Hypertension, benign On: :51 Request CBC with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
--- OUTSIDE RECORDS SUMMARY | 2018-06-09 08:59 | XMS RPT_ITS | Continuity of Care Document ---
:1960 Author Organization [facility] Address [address] [place] [address] Phone Care Team Providers Name Role Phone Maria Elena Dunne CNP Unavailable Lynn Gleason Unavailable Dr. Jori Olivas Unavailable Genoveva Harris Unavailable Unavailable Janna Vasquez Unavailable Unavailable Unavailable Unavailable Problems Name Dates Details Abnormal urine (R82.90, 791.9) Status: Active Achilles tendinitis of right lower extremity (M76.61, 726.71) Status: Active Bilateral ankle pain (M25.571, 719.47) Status: Active BMI 28.0-28.9,adult (Z68.28, V85.24) Status: Active BMI 29.0-29.9,adult (Z68.29, V85.25) Comments: [...] Active Hair pulling (F63.3, 307.9) Status: Active Hip pain, right (M25.551, 719.45) Comments: stretches given Status: Active Hypercholesteremia (E78.00, 272.0) Comments: stable Status: Active Hypertension, benign (I10, 401.1) Comments: Goal<130/80 Controlled on amlodipine and hctz prn for water wt Reviewed new guidlines in [place], would change to calcium channel medina and or diuretic, wean off lopressor now BP well contr olled on amlodipine as needed hctzEKG 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 Seeing Dr Shaan Rico can switch to BJ Shookthyroid removed 07/[address] Te[address]pap[address] thyroid [address]. luu endocrine Status: Active Unspecified Diagnosis Status: Active Unspecified Diagnosis Status: Active Unspecified Diagnosis Status: Active Vertigo (R42, 780.4) Status: Active Vitamin D deficiency, unspecified (E55.9, 268.9) Comments: Continue D3 2000 Status: Active Medications Name Dates Details HydroCHLOROthiazide 12.5 MG Oral Capsule 1 Capsule daily prn for 30 days Quantity: 30 {Capsule} Refills: 6 Ordered:29-Dec-2017 Vibha LORA, Maria Elena Louie [facility], Maria Elena Odonnell Start : 29-Dec-2017 Active Levoxyl 137 MCG Oral Tablet 1 Tablet daily for 0 days Quantity: 30 {Tablet} Refills: 6 Ordered:29-Dec-2017 Vibha LORA, [facility] Start : 29-Dec-2017 Active MULTIVITAMIN (PO Chew Tab) 1 Daily Active Norvasc 5 MG Oral Tablet 1 (one) Tablet daily as directed for 0 days Quantity: 30 {Tablet} Refills: 0 Ordered:13-Oct-2017 Vibha LORA, Maria Elena Louie [facility] Maria Elena Odonnell Start : 13-Oct-2017 Active Synthroid 137 MCG Oral Tablet 1 (one) Tablet daily for 0 days Quantity: 90 {Tablet} Refills: 3 Ordered:29-Dec-2017 Vibha LORA, Maria Elena Louie [facility], Maria Elena Odonnell Start : 29-Dec-2017 Active Synthroid 137 MCG Oral Tablet 1 (one) Tablet daily for 0 days Quantity: 90 {Tablet} Refills: 3 Ordered:29-Dec-2017 Vibha LORA, Maria Elena Louie [facility], Maria Elena Odonnell Start : 29-Dec-2017 Active Comments:No generics ALINA Vitamin D3 2000U daily Active ANUSOL-HC, 25MG (Rectal Suppository) 1 (one) Suppository qhs prn for 0 days Quantity: 30 {Suppository} Refills: 0 Ordered:13-Oct-2014 STEPHANIE Wright Start : 24-Aug-2014 End : 13-Oct-2014 Inactive AUGMENTIN, 875-125MG (Oral Tablet) 1 (one) Tablet bid for 0 days Quantity: 20 {Tablet} Refills: 0 Ordered:05-May-2015 STEPHANIE Wright Start : 20-Mar-2015 End : 05-May-2015 Inactive Ergocalciferol 97432 UNIT Oral Capsule 1 (one) Capsule twice a week x3 months for 0 days Quantity: 24 {Capsule} Refills: 0 Ordered:22-Sep-2017 Cieshoracio LORA, Maria Elena Louie PIT BOSS, Jessica Start : 04-Mar-2017 End : 22-Sep-2017 Inactive [...] days Quantity: 1 {Unspecified} Refills: 0 Ordered:03-Sep-2016 Paige Mccoy LPN Start : 28-May-2016 End : 03-Sep-2016 Discontinued ReliOn Lancets Thin 26G Miscellaneous 1 (one) Misc bid for 0 days Quantity: 100 {Unspecified} Refills: 3 Ordered:03-Sep-2016 Paige Mccoy LPN Start : 28-May-2016 End : 03-Sep-2016 Discontinued ReliOn Ultima Test In Vitro Strip 1 (one) Strip twice daily for 0 days Quantity: 60 {Strip} Refills: 6 Ordered:03-Sep-2016 Pagie Mccoy LPN Start : 28-May-2016 End : 03-Sep-2016 Discontinued [...] colonscopy 02-25 good due 10 years mammo 02-28, pap good hpv negative 09-28 Status: Inactive as of 09-Dec-2016 WWV V73.21 Comments: planning pap next month. will get mammo. pap in follow up last menses 2 years ago. Status: Inactive as of 29-Mar-2013 Procedures Procedure Dates Details colonoscopy 02/2012, repeat 10 yrs, mammogram 02/28, pap 09/28 Completed Mammogram, Screening Completed Comments: 12/24 Thyroidectomy; Total Completed Comments: 07/19 Date Value Details 14-Jan-2018 Lower Ext/No Jt/w/o Result: Comments: See Note; NOTES: [facility] Imaging Services [address] [place] [address] Lower Ext/No Jt/w/o MR#: [id number] Acct: [id number] Name: DESTINI CHIU Rep #: [id number] : 1960 F 57 From: Duong Sam MD PCP: Maria Elena Dunne NP Status: REG CLI Study: Lower Ext/No Jt/w/o Date of Exam: 01/14/18 Exam# [id number] Ordering Dr: Jori Olivas DPM STUDY: MRI LEFT MIDF OOT REASON FOR EXAM: Pain across the dorsal midfoot after object fell on the foot 4 months ago. TECHNIQUE: Standardized fat and water weighted pulse sequences were obtained in all 3 orthogonal planes. COMPARISON: Radiographs 09/10/2017. FINDINGS: Normal talonavicular articulation. Normal calcaneocuboid articulation. Normal navicular-cuneiform articulations. Rose l intercuneiform articulations. There is a subchondral cyst of the proximal first metatarsal at the first tarsometatarsal articulation (inversion recovery sagittal image 8). There is a partial tear of the proximal aspect of Lisfranc ligament (T2 series 6 image 8). There is arthrosis of the second tarsometatarsal joint with chondral thinning and subchondral cystic change at the dorsal aspect of the ar ticulation (T1 sagittal image 11; inversion recovery sagittal image 11). Normal third tarsometatarsal articulation. Normal cuboid fourth and cuboid fifth tarsometatarsal articulation. There is no demon strated metatarsal fracture. There is mild arthrosis of the first metatarsophalangeal joint with mild chondral thinning (T1 sagittal image 6). Normal tibialis anterior tendon. Normal extensor hallucis longus tendon. Normal extensor digitorum longus tendons. Normal peroneus longus tendon and distal insertion. Normal peroneus brevis tendon and distal insertion. Normal intrinsic muscles of the mid and forefoot region. Normal extensor digitorum brevis muscle. Normal subcutis adipose space. MRI/Lower Ext/No Jt/w/o IMPRESSION: Partial tear of Lis franc ligament. Arthrosis of the second tarsometatarsal joint. Subchondral cyst of the first metatarsal base at the tarsometatarsal joint. Mild arthrosis of the first metatarsophalangeal joint. Elec tronically Signed: Duong Sam MD at 10:00 EDT Tel , Service support , CC: Maria Elena Dunne NP; Jori Olivas DPM Practice Consultant: Signed 10-Sep-2017 Discharge Instruction Result: Comments: See Note; NOTES: [facility] Medical Records Department [address] [place] [address] Discharge Instruction 09/10/172058 MR#: [id number] Acct: [id number] Name: SHAHEEN CHIU Rep #: [id number] : 1960 57 From: Greta Fajardo MD [...] your Primary Care Provider. Call [facility] ([phone]) or report to the closest Emergency Room. Call 911 if necessary. 09/10/17 2 059 <Electronically signed by Greta Fajardo MD> Date Greta Fajardo MD Cosigner Signature (If Indicated): Date CC: Maria Elena Dunne NP 10-Sep-2017 Emergency Department Summary Result: Comments: See Note; NOTES: [facility] Medical Records Department [address] [place] [address] Emergency Department Summary 09/10/17 1812 MR#: [id number] Acct: [id number] Name: DESTINI CHIU Rep #: [id number] : 1960 57 From: Greta Fajardo MD [...] foot contusion This note was generated with [employer] dictation software. It may contain incorrect words, [...] problems, contact your Primary Care Provider. Call [facility] ([phone]) or report to the closest Emergency Room. Call 911 if necessary. 09/10/172058 <Electronically signed by Greta Fajardo MD> Date __ Greta Fajardo MD Cosigner Signature (If Indicated): Date CC: Maria Elena Dunne NP 10-Sep-2017 Foot min 3 Views Result: Comments: See Note; NOTES: [facility] Imaging Services [address] [place] [address] Foot min 3 Views MR#: [id number] Acct: [id number] Name: DESTINI CHIU Rep #: [id number] : 1960 F 57 From: Emmanuel Abbasi DO PCP: Maria Elena Dunne NP Status: REG ER Study: Foot min 3 Views Date of Exam: 09/10/17 Exam# [id number] Ordering Dr: Greta Fajardo MD STUDY: X-RAY [...] examination of the foot. Electronically Signed: Emmanuel DO Ayleen at 20:52 EDT Tel , Service support , CC: Maria Elena Dunne NP; Greta Fajardo MD Practice Consultant: Signed 13-Jun-2017 Ankle min 3 Views Result: Comments: See Note; NOTES: [facility] Imaging Services [address] [place] [address] Ankle min 3 Views MR#: [id number] Acct: [id number] Name: DESTINI CHIU Rep #: [id number] : 1960 F 56 From: Justin Ruth MD PCP: Kenzie Villa MD Status: REG CLI Study: Ankle min 3 Views Date of Exam: 06/13/17 Exam# [id number] Ordering Dr: Maria Elena Dunne STUDY: X-RAY [...] Service support , CC: Maria Elena Dunne NP; Kenzie Villa MD Practice Consultant: Signed 13-Jun-2017 Ankle min 3 Views Result: Comments: See Note; NOTES: [facility] Imaging Services [address] [place] [address] Ankle min 3 Views MR#: [id number] Acct: [id number] Name: DESTINI CHIU Rep #: [id number] : 1960 F 56 From: Justin Ruth MD PCP: Kenzie Villa MD Status: REG CLI Study: Ankle min 3 Views Date of Exam: 06/13/17 Exam# [id number] Ordering Dr: Maria Elena Dunne STUDY: X-RAY [...] Service support , CC: Maria Elena Dunne SUPPLY CHAIN MANAGER; Kenzie Villa MD Practice Consultant: Signed 17-Apr-2017 Breast Limited Unilateral Result: Comments: See Note; NOTES: [facility] Imaging Services [address] [place] [address] Breast Limited Unilateral MR#: [id number] Acct: [id number] Name: DESTINI CHIU Rep #: [id number] : 1960 F 56 From: Jeanmarie Nicole MD PCP: Kenzie Villa MD Status: REG CLI Study: Breast Limited Unilateral Date of Exam: 04/17/17 Exam# [id number] Ordering Dr: Maria Elena Dunne STUDY: ULTRA [...] Jeanmarie Nicole MD at 13:36 EST Tel [phone], Service support , CC: Maria Elena Dunne SUPPLY CHAIN MANAGER; Kenzie Villa MD Practice Consultant: Signed 11-Apr-2017 SCREENING MAMM (CAD), BILAT Result: Comments: See Note; NOTES: [facility] Imaging Services [address] [place] [address] SCREENING MAMM (CAD), BILAT MR#: [id number] Acct: [id number] Name: DESTINI CHIU Rep #: [id number] : 1960 F 56 From: Jeanmarie Nicole MD PCP: Kenzie Villa MD Status: REG CLI Study: SCREENING MAMM (CAD), BILAT Date of Exam: 04/11/17 Exam# [id number] Ordering Dr: Maria Elena Dunne [facility] SCREENING REASON FOR EXAM: Female, [...] biopsy of a clinically suspicious abnormal ity. [id number] Electronically Signed: Jeanmarie Nicole MD at 8:25 EST Tel [phone], Service support , CC: Maria Elena Dunne SUPPLY CHAIN MANAGER; Kenzie Villa MD Practice Consultant: Signed 06-Mar-2017 Dexa Bone Density Study (HP) Result: Comments: See Note; NOTES: [facility] Imaging Services [address] [place] [address] Dexa Bone Density Study (HP) MR#: [id number] Acct: [id number] Name: DESTINI CHIU Rep #: [id number] : 1960 F 56 From: Jeanmarie Nicole MD PCP: Kenzie Villa MD Status: REG CLI Study: Dexa Bone Density Study (HP) Date of Exam: 03/06/17 Exam# [id number] Ordering Dr: Maria Elena Dunne STUDY: DUAL [...] National Osteoporosis Foundation [email or web address] Electronically Signed: Victorino Nciole MD at 13:36 EST Tel [phone], Service support , CC: Maria Elena Dunne SUPPLY CHAIN MANAGER; Kenzie Villa MD Practice Consultant: Signed 13-Dec-2015 Thyroid Result: Comments: See Note; NOTES: [facility] Imaging Services [address] [place] [address] Verdana 4d Thyroid MR#: [id number] Acct: [id number] Name: DESTINI CHIU Rep #: [id number] DO B: 1960 F 55 From: Jeanmarie Nicole MD PCP: Kenzie Villa MD Status: REG CLI Study: Thyroid Date of Exam: 12/13/15 Exam# [id number] Ordering Dr: Lynn Gleason MD STUDY: THYROID [...] Jeanmarie Nicole MD at 8:28 EDT Tel [phone], Service support [phone], CC: Kenzie Villa MD; Lynn Gleason MD Practice Consultant: Signed 16-Mar-2015 Bilat Scrn Digital AND CAD Result: Comments: See Note; NOTES: [facility] Imaging Services [address] [place] [address] Verdana 4d Bilat Scrn Digital AND CAD MR#: [id number] Acct: [id number] Name: DESTINI CHIU Rep #: [id number] : 1960 F 54 From: Jeanmarie Nicole MD PCP: Kenzie Villa MD Status: REG CLI Study: Bilat Scrn Digital AND CAD Date of Exam: 03/16/15 Exam# [id number] Ordering Dr: Kenzie Villa MD MAMMOGRAPHY - [...] delay biopsy of a clinically suspicious abnormality. [id number] Electronically Signed: Jeanmarie Nicole MD 2 at 8:59 EST Tel [phone], Service support [phone], CC: Kenzie Villa MD Practice Consultant: Signed 12-Oct-2014 Unilat Lt Diag Digital AND CAD Result: Comments: See Note; NOTES: [facility] Imaging Services [address] [place] [address] Breast Imaging Report MR#: [id number] Acct: [id number] Name: DESTINI CHIU Rep #: [id number] : 1960 F 54 From: Jeanmarie Nicole MD PCP: Kenzie Villa MD Status: REG CLI Study: Unilat Lt Diag Digital AND CAD Date of Exam: 10/12/14 Exam# [id number] Ordering Dr: Kenzie Villa MD MAMMOGRAPHY - [...] Jeanmarie Nicole MD at 13:58 EDT Tel [phone], Service support [phone], CC: Kenzie Villa MD Practice Consultant: Signed 24-Mar-2014 Breast Limited Unilateral Result: Comments: See Note; NOTES: [facility] Imaging Services [address] [place] [address] Ultrasound Report MR#: [id number] Acct: [id number] Name: DESTINI CHIU Rep #: [id number] : 1960 F 53 From: Jeanmarie Nicole MD PCP: Kenzie Villa MD Status: REG CLI Study: Breast Limited Unilateral Date of Exam: 03/24/14 Exam# [id number] Ordering Dr: Kenzie Villa MD CHUCK DY: [...] Jeanmarie Nicole MD at 15:22 EST Tel [phone], Service support [phone], CC: Kenzie Villa MD Practice Consultant: Signed 14-Mar-2014 Bilat Scrn Digital AND CAD Result: Comments: See Note; NOTES: [facility] Imaging Services [address] [place], [place] [address] Breast Imaging Report MR#: [id number] Acct: [id number] Name: DESTINI CHIU Rep #: [id number] : 1960 F 53 From: Pavel Olmstead MD PCP: Kenzie Villa MD Status: REG CLI Study: Bilat Scrn Digital AND CAD Date of Exam: 03/14/14 Exam# [id number] Ordering Dr: Kenzie Villa MD MAMMO GRAPHY [...] to the patient by the facility wit lan 30 days. BR0A Approximately 10% of breast cancers are not detected by mammography. A normal mammogram should not delay biopsy of a clinically suspicious abnormality. Electronically Signed: Michael Olmstead MD at 16:16 EST Tel [phone], Service support [phone], CC: Kenzie Villa MD Practice Consultant: Signed Family History Unknown Family Member Name [...] smoker Vital Signs Date Test Result Details :15 Temperature 96.8 f Comments: Method: Temporal Pulse 95 /min Comments: Pattern: Regular Respiration Rate 17 /min Comments: Pattern: Unlabored O2 SAT 94 % Comments: Room air BP Systolic 138 mm[Hg] Comments: Patient Position: Sitting; Cuff Location: Left Arm; Cuff Size: Standard BP Diastolic 84 mm[Hg] Comments: Patient Position: Sitting; Cuff Location: Left Arm; Cuff Size: Standard Weight 166.125 lb Height 63.5 in Body Mass Index Calculated 28.97 kg/m2 Body Surface Area Calculated 1.8 m2 :54 Temperature 97.8 f Pulse 72 /min [...] kg/m2 Body Surface Area Calculated 1.8 m2 0-Vsr-850749:06 Pulse 82 /min Comments: Pattern: Regular Respiration [...] kg/m2 Body Surface Area Calculated 1.82 m2 85-Spx-711949:05 Temperature 97.8 f Comments: Method: Oral Pulse [...] kg/m2 Body Surface Area Calculated 1.77 m2 92-Smz-883618:20 Temperature 97.2 f Comments: Method: Oral Pulse [...] 1.76 m2 Results Date Description Value Details 29-Npk-86187:29 LIPID PANEL (41151) Comments: Dec; PATIENT WAS FASTINGPERFORMED BY: COURTNEY Dick or Bromehdi CooperXvwzqs5195 [facility] [id number] LDL/HDL Ratio 2.1 {ratio} (Normal) Range: 0.0-3.2 [...] be changing to: Male Female 40 - 706508 50 - 116950 Triglycerides 80 mg/dL (Normal) Range: 0-149 Cholesterol, Total 209 mg/dL (Abnormal) Range: 100-199 72-Gbi-54691:29 MICROALBUMIN: CREATININE RATIO Comments: today; PATIENT WAS FASTINGPERFORMED BY: COURTNEY Colingolin6370 [facility] [id number] (99157) AND (39192) Alb/Creat Ratio 25.4 {mg/g_creat} (Normal) Range: 0.0-30.0 Comments: Normal: 0.0 - 30.0 Albuminuria: 31.0 - 300.0 Clinical albuminuria: >300.0 Albumin, Urine 30.6 ug/mL (Normal) Creatinine, Urine 120.6 mg/dL (Normal) :29 CALCIFEDIOL (78595) Comments: dec 2017; PATIENT WAS FASTINGPERFORMED BY: [employer] [facility] [id number] Vitamin D, 25-Hydroxy 45.0 ng/mL (Normal) Range: 30.0-100.0 Comments: Vitamin D deficiency has been defined by the [place] of[place]icine and an Endocrine Society practice guideline as alevel of serum 25-OH vitamin D less than 20 ng/mL (1,2).The Endocrine Society went on to further define vitamin Dinsufficiency as a level between 21 and 29 ng/mL (2).1. IOM ([place] of [employer]). 2010. Dietary reference intakes for calcium and D. [place]: The National Academies Press.2. Brianne MF, Macy NC, Briana CROSS, et al. Evaluation, treatment, and prevention of vitamin D deficiency: an Endocrine Society clinical practice guideline. JCEM. 2010; 96(7):1911-30. :29 HGB A1C (89168) Comments: Dec 2017; PATIENT WAS FASTINGPERFORMED BY: Dick or Bro Zsvzru3377 [facility] [id number] Hemoglobin A1c 5.9 % (Abnormal) Range: 4.8-5.6 Comments: . Prediabetes: 5.7 - 6.4 Diabetes: >6.4 Glycemic control for adults with diabetes: <7.0 :29 TSH (THYROID STIMULATING Comments: dec 2017; PATIENT WAS FASTINGPERFORMED BY: [employer]6[address] [facility] [id number] HORMONE) (93635) TSH 4.670 {uIU/mL} (Abnormal) Range: 0.450-4.500 :51 Microscopic Examination Comments: PATIENT WAS FASTINGPERFORMED BY: Dick or BroWeisman Children's Rehabilitation HospitalPzqwbr3522 [facility] [id number] Bacteria None seen (Normal) Mucus Threads Present (Normal) Epithelial Cells (non renal) 0-10 {/hpf} (Normal) Range: 0 - 10 RBC 0-2 {/hpf} (Normal) Range: 0 - 2 WBC 0-5 {/hpf} (Normal) Range: 0 - 5 :51 Lipid Panel (98528) Comments: PATIENT WAS FASTINGPERFORMED BY: Dick or Bro Atzren8610 [facility] [id number] LDL/HDL Ratio 2.1 {ratio_units} (Normal) Range: 0.0-3.2 [...] Panel, Comprehensive Comments: PATIENT WAS FASTINGPERFORMED BY: Dick or Bro Hvmvxz8573 [facility] [id number] (73214) ALT (SGPT) 25 [iU]/L (Normal) Range: 0-32 [...] 103 mg/dL (Abnormal) Range: 65-99 :51 URINALYSIS (43007) Comments: PATIENT WAS FASTINGPERFORMED BY: [email or web address] [place] [id number] Microscopic Examination See below: (Normal) Comments: Microscopic was indicated and was performed. Nitrite, Urine Negative (Normal) Urobilinogen,Semi-Qn 0.2 mg/dL (Normal) Range: 0.2-1.0 Bilirubin Negative (Normal) Occult Blood Negative (Normal) Ketones Negative (Normal) Glucose Negative (Normal) Protein Negative (Normal) WBC Esterase 1+ (Abnormal) Appearance Clear (Normal) Urine-Color Yellow (Normal) pH 6.5 (Normal) Range: 5.0-7.5 Specific [place] 1.017 (Normal) Range: 1.005-1.030 :51 MICROALBUMIN: CREATININE RATIO Comments: PATIENT WAS FASTINGPERFORMED BY: [facility] [id number] (58317) AND (63364) Alb/Creat Ratio 69.2 {mg/g_creat} (Abnormal) Range: 0.0-30.0 Albumin, Urine 58.1 ug/mL (Normal) Creatinine, Urine 83.9 mg/dL (Normal) :51 TSH (33976) Comments: PATIENT WAS FASTINGPERFORMED BY: [employer] [facility] [id number] TSH 1.460 {uIU/mL} (Normal) Range: 0.450-4.500 :51 CBC, Platelets & Auto Diff Comments: PATIENT WAS FASTINGPERFORMED BY: [facility] [id number] (07736) Immature Grans (Abs) 0.0 {x10E3/uL} (Normal) Range: [...] {x10E3/uL} (Normal) Range: 3.4-10.8 :51 HGB A1C (26719) Comments: PATIENT WAS FASTINGPERFORMED BY: [facility] [id number] Hemoglobin A1c 5.9 % (Abnormal) Range: 4.8-5.6 Comments: . Pre-diabetes: 5.7 - 6.4 Diabetes: >6.4 Glycemic control for adults with diabetes: <7.0 93-Fyn-754018:23 HGB A1C (85354) Comments: Today; PATIENT NOT FASTINGPERFORMED BY: [facility] Iyuuqj9932 Sam RoadDublin [place] [id number] Hemoglobin A1c 5.7 % (Abnormal) Range: 4.8-5.6 Comments: . Pre-diabetes: 5.7 - 6.4 Diabetes: >6.4 Glycemic control for adults with diabetes: <7.0 10-Yda-559224:08 HGB A1C (64333) Comments: today; PATIENT NOT FASTINGPERFORMED BY: [facility] Bsczar9127 Sam RoadDublin [place] [id number] Hemoglobin A1c 6.0 % (Abnormal) Range: 4.8-5.6 Comments: . Pre-diabetes: 5.7 - 6.4 Diabetes: >6.4 Glycemic control for adults with diabetes: <7.0 :08 GLUCOSE (97047) Comments: today; PATIENT NOT FASTINGPERFORMED BY: [facility] Jvxkhf8974 Sam [facility] [place] [id number] Glucose, Serum 75 mg/dL (Normal) Range: 65-99 68-Kiz-517848:08 CALCIFEDIOL (73490) Comments: today; PATIENT NOT FASTINGPERFORMED BY: [facility] Rfgvmn9264 Sam [facility] [place] [id number] Vitamin D, 25-Hydroxy 22.1 ng/mL (Abnormal) Range: 30.0-100.0 Comments: Vitamin D deficiency has been defined by the [place] of[place] and an Endocrine Society practice guideline as alevel of serum 25-OH vitamin D less than 20 ng/mL (1,2).The Endocrine Society went on to further define vitamin Dinsufficiency as a level between 21 and 29 ng/mL (2).1. IOM ([place]). 2010. Dietary reference intakes for calcium and D. [place]: The National Academies Press.2. Brianne MF, Macy NAVARRETE, Briana CROSS, et al. Evaluation, treatment, and prevention of vitamin D deficiency: an Endocrine Society clinical practice guideline. JCEM. 2010; 96(7):7611-30. 88-Dir-820123:08 TSH (THYROID STIMULATING Comments: today; PATIENT NOT FASTINGPERFORMED BY: [facility] Picaue1108 Sam RoadDublin [place] [id number] HORMONE) (12547) TSH 0.732 {uIU/mL} (Normal) Range: 0.450-4.500 :22 T3, FREE (TRIDOTHYRONINE) (10857) Comments: PATIENT WAS FASTINGPERFORMED BY: [facility] Muixgp4143 Sam RoadDublin [place] [id number] Triiodothyronine,Free,Serum 2.6 pg/mL (Normal) Range: 2.0-4.4 :22 T4, FREE (THYROXINE) (22931) Comments: PATIENT WAS FASTINGPERFORMED BY: [facility] Ilqggc1646 Sam RoadDublin [place] [id number] T4,Free(Direct) 1.75 ng/dL (Normal) Range: 0.82-1.77 :22 HGB A1C (16848) Comments: PATIENT WAS FASTINGPERFORMED BY: [facility] Jgmyky3241 Sam RoadDublin [place] [id number] Hemoglobin A1c 6.1 % (Abnormal) Range: 4.8-5.6 Comments: . Pre-diabetes: 5.7 - 6.4 Diabetes: >6.4 Glycemic control for adults with diabetes: <7.0 6-Qtw-556908:13 MICROALBUMIN: CREATININE Comments: PATIENT NOT FASTINGPERFORMED BY: [facility] Oovwlg7883 Sam RoadDublin [place] [id number] Information: [id number] RATIO (09786) AND (90944) Microalb/Creat Ratio 15.5 {mg/g_creat} (Normal) Range: 0.0-30.0 Microalbumin, Urine 9.8 ug/mL (Normal) Creatinine, Urine 63.3 mg/dL (Normal) :22 VITAMIN B12 AND FOLATES Comments: PATIENT WAS FASTINGPERFORMED BY: [facility]6370 [facility] [id number] (81312) Folate (Folic Acid), Serum 9.6 ng/mL (Normal) Comments: A serum folate concentration of less than 3.1 ng/mL isconsidered to represent clinical deficiency. Vitamin B12 573 pg/mL (Normal) Range: 211-946 :22 CALCIFEDIOL (34160) Comments: PATIENT WAS FASTINGPERFORMED BY: [facility] ReaderSaint Luke'S Health SystemFcrhel6168 [facility] [id number] Vitamin D, 25-Hydroxy 18.8 ng/mL (Abnormal) Range: 30.0-100.0 Comments: Vitamin D deficiency has been defined by the [place] and an Endocrine Society practice guideline as alevel of serum 25-OH vitamin D less than 20 ng/mL (1,2).The Endocrine Society went on to further define vitamin Dinsufficiency as a level between 21 and 29 ng/mL (2).1. IOM ([place] [employer] [place]). 2010. Dietary reference intakes for calcium and D. [place]: The National Academies Press.2. Brianne MF, Macy NC, Briana CROSS, et al. Evaluation, treatment, and prevention of vitamin D deficiency: an Endocrine Society clinical practice guideline. JCEM. 2010; 96(7):1911-30. :22 TSH (THYROID STIMULATING Comments: PATIENT WAS FASTINGPERFORMED BY: [facility] ReaderSaint Luke'S Health SystemMysqnb0446 [facility] [id number] HORMONE) ([id number]) TSH 0.127 {uIU/mL} (Abnormal) Range: 0.450-4.500 :22 LIPID PANEL (39443) Comments: PATIENT WAS FASTINGPERFORMED BY: [facility] Biawjk8683 [facility] Sports Medicineblin [place] [id number] LDL/HDL Ratio 2.3 {ratio_units} (Normal) Range: 0.0-3.2 Comments: LDL/HDL Ratio Men Women 1/2 Avg.Risk 1.0 1.5 Av g.Risk 3.6 3.2 2X Avg.Risk 6.2 5.0 3X Avg.Risk 8.0 6.1 LDL Cholesterol Calc 111 mg/dL (Abnormal) Range: 0-99 VLDL Cholesterol Suraj 27 mg/dL (Normal) Range: 5-40 HDL Cholesterol 49 mg/dL (Normal) Triglycerides 133 mg/dL (Normal) Range: 0-149 Cholesterol, Total 187 mg/dL (Normal) Range: 100-199 71-Lyt-11155:22 METABOLIC PANEL, COMPREHENSIVE Comments: PATIENT WAS FASTINGPERFORMED BY: LabCoWeisman Children's Rehabilitation HospitalJecwlp0326 [facility] [id number] (53263) ALT (SGPT) 31 [iU]/L (Normal) Range: 0-32 [...] Glucose, Serum 95 mg/dL (Normal) Range: 65-99 07-Moa-09828:22 CBC, PLATELETS & AUT DIFF Comments: PATIENT WAS FASTINGPERFORMED BY: LabCoWeisman Children's Rehabilitation HospitalRvvmjq9086 [facility] [id number] (01224) Immature Grans (Abs) 0.0 {x10E3/uL} (Normal) Range: [...] 3.77-5.28 WBC 4.9 {x10E3/uL} (Normal) Range: 3.4-10.8 55-Kir-222142:00 IGP, Aptima HPV, rfx Comments: No. of containers..01 CYTYC Thin Prep VialPATIENT NOT FASTINGPERFORMED BY: =G [facility] Ruzpxfteer299 [facility] PlazaFal[facility] Hospitalrlesme[facility] [place] [id number] BY: WB [facility] Sifhiakftv983 [facility] Centerrlesme[facility] [place] [id number] 16/18,45 HPV Aptima Negative (Normal) Comments: This [...] component) are present.V72.31 ; Routine gynecolog ical examholly Piper, Director Industrial Nursing (ASCP) 13-Bev-309029:00 Thin Prep Pap (95629) Comments: No. of containers..01 CYTYC Thin Prep VialPATIENT NOT FASTINGPERFORMED BY: =G [facility] Lyqcutvbvi729 [place] Plaza[place] [id number] BY: WB [facility] Mafpllohgj002 [facility] PlazaFalmouth Hospitalrlest on [place] [id number] Information: [id number] Age Gdln ACOG Testing 30-65 (Normal) 86-Ubd-347996:14 Antithyroglobulin Ab Comments: PATIENT WAS FASTINGPERFORMED BY: [facility] Cqkxqi4942 [facility] [id number] Thyroglobulin, Antibody <1.0 {IU/mL} Range: 0.0-0.9 (Normal) Comments: Low positive Thyroglobulin antibodies are seen in a portion of theasymptomatic populations.Antithyroglobulin antibodies measured by [facility] 14-Jul-19 TSH 0.472 {uIU/mL} Comments: PATIENT WAS FASTINGPERFORMED BY: [facility] Rkxoqn5152 Sam RoadDublin [place] [id number] Information: [id number] 1511:14 (Normal) Range: 0.450-4.500 14-Jul-19 Written Authorization WAR (Normal) Comments: PATIENT WAS FASTINGPERFORMED BY: [facility] Dgxnjk4902 Sam RoadDublin [place] [id number] 1511:14 Comments: Written Authorization Received.Authorization received from NORIS FREEMAN [id number] by Tasha Balderas 91-Uxi-822269:14 CALCIFEDIOL (82042) Comments: PATIENT WAS FASTINGPERFORMED BY: [facility] Odookk4428 Sam RoadDublin [place] [id number] Vitamin D, 25-Hydroxy 16.3 ng/mL (Abnormal) Range: 30.0-100.0 Comments: Vitamin D deficiency has been defined by the [place] and an Endocrine Society practice guideline as alevel of serum 25-OH vitamin D less than 20 ng/mL (1,2).The Endocrine Society went on to further define vitamin Dinsufficiency as a level between 21 and 29 ng/mL (2).1. IOM ([place]). 2010. Dietary reference intakes for calcium and D. [place]: The National Academies Press.2. Brianne MF, [place]acy [place], Briana CROSS, et al. Evaluation, treatment, and prevention of vitamin D deficiency: an Endocrine Society clinical practice guideline. JCEM. 2010; 96(7):1911-30. 89-Awy-889446:14 LIPID PANEL (41131) Comments: PATIENT WAS FASTINGPERFORMED BY: CB [facility] Zaijvt6607 Sam RoadDublin [place] [id number] LDL/HDL Ratio 1.9 {ratio_units} (Normal) Range: 0.0-3.2 [...] Cholesterol, Total 173 mg/dL (Normal) Range: 100-199 69-Jdj-893026:14 METABOLIC PANEL, COMPREHENSIVE Comments: PATIENT WAS FASTINGPERFORMED BY: LabCoWeisman Children's Rehabilitation HospitalQphyyo1773 [facility] [id number] (93243) ALT (SGPT) 20 [iU]/L (Normal) Range: 0-32 [...] Glucose, Serum 91 mg/dL (Normal) Range: 65-99 77-Vhn-582912:14 CBC, PLATELETS & MANUAL Comments: PATIENT WAS FASTINGPERFORMED BY: [employer] [facility] [id number] Information: [id number] DIFF (62155) Immature Grans (Abs) 0.0 {x10E3/uL} (Normal) Range: [...] 3.77-5.28 WBC 6.0 {x10E3/uL} (Normal) Range: 3.4-10.8 8-Wdy-954168:25 Thyroglobulin Reflex Profile Comments: PATIENT NOT FASTINGPERFORMED BY: PlayMobsDublin [place] [id number] Thyroglobulin, Antibody <1.0 {IU/mL} Range: 0.0-0.9 (Normal) Comments: Antithyroglobulin antibodies measured by [facility] [place] [facility] Thyroglobulin, Serum 0.4 ng/mL Comments: PATIENT NOT FASTINGPERFORMED BY: Dick or Bro Rrlzzk8370 [facility] [id number] :25 (Abnormal) Range: 1.5-38.5 Comments: According to [...] Panel, Basic Comments: PATIENT NOT FASTINGPERFORMED BY: Dick or Bro Tdovho8016 [facility] [id number] Information: [id number] (23927) Calcium, Serum 9.5 mg/dL (Normal) Range: 8.7-10.2 [...] Glucose, Serum 95 mg/dL (Normal) Range: 65-99 22-Nju-15812:22 CBC with manual diff Comments: PATIENT WAS FASTINGPERFORMED BY: LabThree [facility] Hospital6370 [facility] [id number] Information: [id number] (52248) Immature Grans (Abs) 0.0 {x10E3/uL} (Normal) Range: [...] 3.77-5.28 WBC 5.3 {x10E3/uL} (Normal) Range: 4.0-10.5 75-Yht-79107:22 Lipid Panel (32524) Comments: PATIENT WAS FASTINGPERFORMED BY: LabCoWe[facility] Children[facility] Rehabilitation HospitalCrrxlm0000 [facility] [id number] LDL/HDL Ratio 1.9 {ratio_units} (Normal) Range: 0.0-3.2 LDL Cholesterol Calc 110 mg/dL (Abnormal) Range: 0-99 VLDL Cholesterol Suraj 11 mg/dL (Normal) Range: 5-40 HDL Cholesterol 58 mg/dL (Normal) Comments: According to ATP-III Guidelines, HDL-C >59 mg/dL is considered anegative risk factor for CHD. Triglycerides 57 mg/dL (Normal) Range: 0-149 Cholesterol, Total 179 mg/dL (Normal) Range: 100-199 :22 Metabolic Panel, Comprehensive Comments: PATIENT WAS FASTINGPERFORMED BY: [employer]70 [facility] [id number] ([id number]) ALT (SGPT) 20 [iU]/L (Normal) Range: 0-32 [...] Glucose, Serum 102 mg/dL (Abnormal) Range: 65-99 :22 TSH (15848) Comments: PATIENT WAS FASTINGPERFORMED BY: [employer]70 [facility] [id number] TSH 0.184 {uIU/mL} (Abnormal) Range: 0.450-4.500 19-Wwc-22575:22 THYROGLOBULIN ANTIBODY (41128) Comments: PATIENT WAS FASTINGPERFORMED BY: [facility]6370 [facility] [id number] Antithyroglobulin Ab <20 {IU/mL} (Normal) Range: 0-40 Comments: [employer]ens ([place]zz[employer]) ICMA Methodology 04-Ubs-551865:14 PAPIG0 Comments: CYTOLOGY INFORMATION:- CLINICAL INFORMATION: - DATE LMP/MENOPAUSE: - COLLECTION VIAL: Thin Prep Vial- LENDING ACTIVITIES SUPERVISOR SOURCE: - COLLECTION TECHNIQUE: tPAPSMR Comment (Normal) [...] squamous metaplasticcells (endocervical component) are present.Bijal Guaman, Director Industrial Nursing (ASCP )This liquid based ThinPrep(R) pap test was screened withthe use of an image guided system.Performed at: [address] [id number] Director: Mario Crawley MD, Phone: [phone] 98-Fib-608130:14 CBCMD ANISO 1+ (Normal) RBCM N CHROM [...] 7-18 GLU 82 mg/dL (Normal) Range: 70-110 :14 LIPID VLDL 12 mg/dL (Normal) Range: 5-40 [...] Very High > or = 500 mg/dL 34-Nvq-116217:14 MIACRE tMICROCREAT 41.5 {mg/g_CRE} (Abnormal) MIALB 27.7 mg/L (Normal) CREU 66.6 mg/dL (Normal) 59-Ims-612590:14 C UMUC 0 SEEN {/hpf} (Normal) UBAC RARE [...] (Normal) UCLAR CLEAR (Normal) UCOL YELLOW (Normal) 4-Ppa-173964:26 METABOLIC PANEL, COMPREHENSIVE Comments: PATIENT WAS FASTINGPERFORMED BY: LabCoWeisman Children's Rehabilitation HospitalAelibv9475 [facility] [id number] (22707) ALT (SGPT) 18 [iU]/L (Normal) Range: 0-32 [...] Glucose, Serum 96 mg/dL (Normal) Range: 65-99 6-Svu-388838:26 LIPID PANEL (95503) Comments: PATIENT WAS FASTINGPERFORMED BY: [employer]70 [facility] [id number] LDL/HDL Ratio 2.2 {ratio_units} (Normal) Range: 0.0-3.2 LDL Cholesterol Calc 139 mg/dL (Abnormal) Range: 0-99 VLDL Cholesterol Suraj 16 mg/dL (Normal) Range: 5-40 HDL Cholesterol 63 mg/dL (Normal) Comments: According to ATP-III Guidelines, HDL-C >59 mg/dL is considered anegative risk factor for CHD. Triglycerides 78 mg/dL (Normal) Range: 0-149 Cholesterol, Total 218 mg/dL (Abnormal) Range: 100-199 8-Ndx-833670:26 CBC WITH MANUAL DIFF Comments: PATIENT WAS FASTINGPERFORMED BY: [employer]6370 [facility] [id number] Information: [id number],2ND ORDER NO DRAW F EE (97023) Immature Grans (Abs) 0.0 {x10E3/uL} (Normal) Range: [...] Plan of Care Name Dates Details Instructions BMI 28.0-28.9,adult : Follow up in 3 months Indication: BMI 28.0-28.9,adult Hypertension, benign : Reviewed Lab Indication: Hypertension, benign Vitamin D deficiency, unspecified : Reviewed Lab Indication: Vitamin D deficiency, unspecified Hypercholesteremia : Reviewed Lab Indication: Hypercholesteremia Current nonsmoker (Renamed from Current non-smoker) : Eprescribed prescriptions (G8553) Indication: Current nonsmoker (Renamed from Current non-smoker) Current nonsmoker (Renamed from Current non-smoker) : [...] Indication: Well woman exam Planned Observations CALCIFEDIOL (72084)Indication: Vitamin D deficiency, unspecified On: :43 Request Comments: today HGB A1C (22191)Indication: Impaired fasting glucose On: 2-Rph-899383:42 Request Comments: today METABOLIC PANEL, COMPREHENSIVE (14216)Indication: Hypothyroid On: :23 Request HGB A1C (05989)Indication: Impaired fasting glucose On: :23 Request LIPID PANEL (83446)Indication: Hypothyroid On: :23 Request CALCIFEDIOL (32725)Indication: Vitamin D deficiency, unspecified On: :56 Request Comments: Feb 2017 HGB A1C (26896)Indication: Impaired fasting glucose On: :53 Request Comments: Feb 2017 T4, FREE (THYROXINE) (70797)Indication: Hypothyroid On: 67-Odb-893645:53 Request Comments: Feb 2017 T3, FREE (TRIDOTHYRONINE) (57175)Indication: Hypothyroid On: 13-Ooy-791264:52 Request Comments: Feb 2017 TSH (THYROID STIMULATING HORMONE) (66787)Indication: Hypothyroid On: 01-Djz-515058:52 Request Comments: Feb 2017 TSH (THYROID STIMULATING HORMONE) (35665)Indication: Hypothyroid On: 24-Qbq-181567:59 Request Comments: Do on or around July 08, 2016 HGB A1C (91301)Indication: Prediabetes On: 95-Ufw-482667:50 Request Comments: to be done after August 28 GLUCOSE (53210)Indication: Prediabetes On: 38-Xiz-139584:50 Request Comments: to be done after August 28 THYROGLOBULIN ANTIBODY (49240)Indication: Thyroid cancer On: :53 Request THYROGLOBULIN (81541)Indication: Thyroid cancer On: :51 Request URINALYSIS, W/ MICRO (50537)Indication: Hypertension, benign On: :51 Request METABOLIC PANEL, COMPREHENSIVE (04746)Indication: Hypertension, benign On: 03-Akp-094399:51 Request LIPID PANEL (34911)Indication: Hypertension, benign On: :51 Request CBC with auto diff (92093)Indication: Hypertension, benign On: :51 Request CALCIFIDIOL (37755) VIT D 25Indication: Vitamin D deficiency, unspecified On: :47 Request T4, FREE (THYROXINE) (20202)Indication: Thyroid cancer On: :38 Request TSH (89429)Indication: Thyroid cancer On: :38 Request T3, FREE (TRIDOTHYRONINE) (58477)Indication: Thyroid cancer On: :38 Request TSH (37071)Indication: Thyroid cancer On: :37 Request CALCIFIDIOL (20201) VIT D 25Indication: Vitamin D deficiency, unspecified On: 49-Jyf-139594:37 Request CALCIFEDIOL (28803)Indication: Vitamin D deficiency, unspecified On: :04 Request Comments: recheck in 8 wks THYROGLOBULIN (32830)Indication: Thyroid cancer On: :37 Request Comments: today CALCIFIDIOL (88862) VIT D 25Indication: Vitamin D deficiency, unspecified On: :37 Request Comments: in efw months TSH (79812)Indication: Thyroid cancer On: 8-Tua-041897:22 Request T4, FREE (THYROXINE) (10539)Indication: Thyroid cancer On: 7-Fqe-422142:22 Request THYROGLOBULIN (95041)Indication: Thyroid cancer On: 05-Hfn-801598:49 Request Thin prep Pap (28907)Indication: Well woman exam On: 24-Zdn-922444:53 Request URINALYSIS, W/ MICRO (60083)Indication: Hypertension, benign On: 28-Ppk-134606:51 Request MICROALBUMIN: CREATININE RATIO (33667) AND (77775)Indication: Hypertension, benign On: 53-Uvk-770687:51 Request Planned Procedures MAMMOGRAM BREAST BILATERAL SCREENING On: 02-Apr-2018 Intent DIGITAL (43584)By: Vibha LORA, Maria Elena Solis CNP XR ANKLE BILATERAL, 3 VIEWS On: 13-Jun-2017 Intent (23907)By: Vibha LORA Maria Elena Odonnell Vibha LORA Maria Elena Odonnell Radiology - Ankle - RightBy: Vibha On: 13-Jun-2017 Intent Maria Elena LORA CNP, Maria Elena Odonnell Comments: Send to Dr. Olivas DEXA SCAN AXIAL SKELETON (87044)By: On: 09-Dec-2016 Intent Vibha LORA, Maria Elena Dunne CNP, Maria Elena Odonnell SCREENING DIGITAL TOMOSYNTHESIS OF On: 09-Dec-2016 Intent BREAST (30691)By: Vibha LORA Maria Elena Dunne CNP, Maria Elena Odonnell XR CLAVICLE RIGHT, 2 VIEWS (98795)By: On: 05-May-2015 Intent Kenzie Villa MD ELECTROCARDIOGRAM, COMPLETE (ECG) On: 05-May-2015 Intent (17078)By: Kenzie Villa MD Comments: see scanned document of test done to see results reviewed today with patient BILATERAL MAMMOGRAMS (08141)By: On: 13-Oct-2014 Intent Kenzie Villa MD Comments: due in 02-28 DIAG DIGITAL MAMMOGRAM UNILAT On: 10-Oct-2014 Intent (G0206)By: Kenzie Villa MD MAMMOGRAM, SCREENING, BOTH BREAST On: 15-Jul-2014 Intent (58905)By: Kenzie Villa MD EKG (26358)By: Kenzie Villa MD On: 30-Mar-2013 Intent Comments: see scanned document of test done to see results reviewed today with patient MAMMOGRAM, SCREENING, BOTH BREASTS On: 30-Mar-2013 Intent (58886)By: Kenzie Villa MD Eprescribed prescriptions (G8553)By: On: 30-Mar-2013 Intent Janna Vasquez EKG (10622)By: STEPHANIE Wright On: 01-Oct-2012 Intent MAMMOGRAM, SCREENING, BOTH BREASTS On: 10-Sep-2011 Intent (77904)By: Kenzie Villa MD TDAP VACCINE >7 IM (18416)By: Daisy On: 05-Aug-2011 Intent Kenzie GARCIA Comments: Declined at this time and will check with insurance to see about coverage for innoculation--Pamela ELECTROCARDIOGRAM, COMPLETE (ECG) On: 05-Aug-2011 Intent (22343)By: Pamela Bush LPN MAMMOGRAM, SCREENING, BOTH BREASTS On: 05-Aug-2011 Intent (79553)By: Kenzie Villa MD Instructions Name Dates Details Current nonsmoker (Renamed from Current non-smoker) : How to access health information online Indication: Current nonsmoker (Renamed from Current non-smoker) Current nonsmoker (Renamed from Current non-smoker) : How to access health information online - Detail Indication: Current nonsmoker (Renamed from Current non-smoker) Current nonsmoker (Renamed from Current non-smoker) : Patient Instructions Indication: Current nonsmoker (Renamed from Current non-smoker) Impaired fasting glucose : How to access [...] Instructions Indication: Hypertension, benign Encounters Annotation/Addendum On: 02-Apr-2018 11:05 Encounter Diagnosis: Screening mammogram, encounter for End: 02-Apr-2018 11:07 [facility] Office Visit On: 29-Dec-2017 13:14 Encounter Reason: Follow up for chronic medical issues - The patient feels well with minor complaints (foot still bothering pt. goes to see foot drReagan tomorrow), has good energy level and is sleeping well. Patient has been End: 29-Dec-2017 13:59 compliant with instructions. Current medication use: experiencing side effects (tingling/numbness in right hip-- not sure if it's medication related or not?), compliant with dosing regimen and consider ed effective by patient. Patient sleeps 6 hours per night. Nutrition: balanced diet. The medical issues the patient is following up for include high blood pressure and other (vitamin d def., sickle cell trait, hx. thyroid cancer )., [ADDITIONAL REASON] Follow up tests - Diagnostic tests include other (labs). Date: (12/26/17). , [ADDITIONAL REASON] Hip Problem - Note for Hip problem: Hip numbness and tingling Encounter Diagnosis: Current nonsmoker (Renamed from Current non-smoker), BMI 28.0-28.9,adult, Hypothyroid, Hypercholesteremia, Vitamin D deficiency, unspecified, Hypertension, benign, Achilles tendinitis of right lower extremity, Hip pain, right [facility] Annotation/Addendum On: 28-Dec-2017 8:04 [facility] [...] top of head throbbing while standing at synagogue and then sat down, then went away. [...] Woman Exam (V72.31) (Pap,Mammo,Routine Female) (Renamed from [employer] V72.31 (p,m)) End: 13-Oct-2014 15:00 [facility] [...] Woman Exam (V72.31) (Pap,Mammo,Routine Female) (Renamed from [employer] V72.31 (p,m)), Abnormal finding on mammography, Hypertension,benign(401.1), [...] Female) (Renamed from Well Woman V72.31 (p,m)), Chest pain [facility] [...] Well Woman V72.31 (p,m)), Achilles tendon pain (727.89) [facility] Lab Order On: 03-Sep-2012 [...] is not using a End: 10-Sep-2011 17:07 dc method of contraception at this time. Patient exercises 3 - 4 times per week. The patient's libido is normal. The patient reports that she performs monthly self breast exam. Calcium intake includes 2 serving(s) milk daily.Encounter Diagnosis: Well Woman Exam (V72.31) (Pap,Mammo,Routine Female) (Renamed from Personal Estate Manager Woman V72.31 (p,m)) [facility] Office [...] (246.9), Hypertension,benign(401.1), WWV V73.21, Sickle-cell trait (282.5) [facility] Payers Medical [facility]; a guarantor
--- OUTSIDE RECORDS SUMMARY | 2018-06-09 08:59 | XMS RPT_ITS | Continuity of Care Document ---
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 [place] Status: Active Hypothyroid (E03.9, 244.9) Comments: thyroid [...] Refills: 6 Ordered:29-Dec-2017 Vibha LORA, Maria Elena Zheng CNP Start : 29-Dec-2017 Active Levoxyl 137 MCG Oral Tablet 1 Tablet daily for 0 days Quantity: 30 {Tablet} Refills: 6 Ordered:29-Dec-2017 Vibha LORA, Maria Elena Zheng CNP Start : 29-Dec-2017 Active MULTIVITAMIN (PO Chew Tab) 1 Daily Active Norvasc 5 MG Oral Tablet 1 (one) Tablet daily as directed for 0 days Quantity: 30 {Tablet} Refills: 0 Ordered:13-Oct-2017 Vibha LORA Maria Elena Zheng CNP Start : 13-Oct-2017 Active Synthroid 137 MCG Oral Tablet 1 (one) Tablet daily for 0 days Quantity: 90 {Tablet} Refills: 3 Ordered:29-Dec-2017 Vibha LORA, Maria Elena Zheng CNP Start : 29-Dec-2017 Active Synthroid 137 MCG Oral Tablet 1 (one) Tablet daily for 0 days Quantity: 90 {Tablet} Refills: 3 Ordered:29-Dec-2017 Vibha LORA Maria Elena Zheng CNP Start : 29-Dec-2017 Active Comments:No generics ALINA [...] : 20-Mar-2015 End : 05-May-2015 Inactive Ergocalciferol 43464 UNIT Oral Capsule 1 (one) Capsule twice a week x3 months for 0 days Quantity: 24 {Capsule} Refills: 0 Ordered:22-Sep-2017 Vibha LORA Maria Elena Zheng CNP Start : 04-Mar-2017 End : 22-Sep-2017 Inactive Lopressor 50 MG Oral Tablet 1 Tablet BID for 0 days Quantity: 60 {Tablet} Refills: 6 Ordered:22-Sep-2017 Dylan Mccoy LPNa Start : 30-Mar-2017 End : 22-Sep-2017 Inactive Probiotic Oral Tablet Delayed Release 1 (one) Tablet DR Tablet DR daily for 0 days Quantity: 30 {Tablet} Refills: 0 Ordered:13-Jun-2017 Dylan Mccoy LPNa Start : 29-Apr-2016 End : 13-Jun-2017 Inactive Vitamin D3 High Potency 1000 UNIT Oral Capsule 2 (two) Capsule daily for 30 days Quantity: 30 {Capsule} Refills: 0 Ordered:13-Nov-2015 Nj Nassar MD Start : 11-Oct-2015 End : 10-Nov-2015 Inactive ReliOn All-In-One Device 1 (one) Device one for 0 days Quantity: 1 {Unspecified} Refills: 0 Ordered:03-Sep-2016 Nadine PEÑALOZA Paige Start : 28-May-2016 End : 03-Sep-2016 Discontinued ReliOn Lancets Thin 26G Miscellaneous 1 (one) Misc bid for 0 days Quantity: 100 {Unspecified} Refills: 3 Ordered:03-Sep-2016 Nadine PEÑALOZA Paige Start : 28-May-2016 End : 03-Sep-2016 Discontinued ReliOn Ultima Test In Vitro Strip 1 (one) Strip twice daily for 0 days Quantity: 60 {Strip} Refills: 6 Ordered:03-Sep-2016 Nadine PEÑALOZA Paige Start : 28-May-2016 End : 03-Sep-2016 Discontinued Zithromax Z-Kale 250 MG Oral Tablet 1 (one) Tablet TAD for 0 days Quantity: 1 {Package} Refills: 0 Ordered:28-May-2016 Nadine PEÑALOZA Paige Start : 29-Apr-2016 End : 28-May-2016 Discontinued [...] Discharge Instruction Result: Comments: See Note; NOTES: [facility] Medical Records Department [address] [place] [address] Discharge Instruction 09/10/172058 MR#: [id number] Acct: [id number] Name: SHAHEEN CHIU Rep #: [id number] : 1960 57 From: Greta Fajardo MD [...] your Primary Care Provider. Call [facility] ([phone]) or report to the closest Emergency Room. Call 911 if necessary. 09/10/17 2 059 <Electronically signed by Greta Fajardo MD> Date Greta Fajardo MD Cosigner Signature (If Indicated): Date CC: Maria Elena Dunne NP 10-Sep-2017 Emergency Department Summary Result: Comments: See Note; NOTES: [facility] Medical Records Department [address] [place] [address] Emergency Department Summary 09/10/171811 MR#: [id number] Acct: [id number] Name: DESTINI CHIU Horacio Rep #: [id number] : 1960 57 From: Greta Fajardo MD [...] foot contusion This note was generated with [email or web address] dictation software. It may contain incorrect words, [...] your Primary Care Provider. Call [facility] ([phone]) or report to the closest Emergency Room. Call 911 if necessary. 09/10/172058 <Electronically signed by Greta Fajardo MD> Date __ Greta Fajardo MD Cosigner Signature (If Indicated): Date CC: Maria Elena Dunne NP 10-Sep-2017 Foot min 3 Views Result: Comments: See Note; NOTES: [facility] Imaging Services [address] [place] [address] Foot min 3 Views MR#: [id number] Acct: [id number] Name: DESTINI CHIU Rep #: [id number] : 1960 F 57 From: Emmanuel Abbasi DO PCP: Maria Elena Dunne NP Status: REG ER Study: Foot min 3 Views Date of Exam: 09/10/17 Exam# [id number] Ordering Dr: Greta Fajardo MD STUDY: X-RAY [...] Maria Elena Dunne NP; Greta Fajardo MD Pastry Decorator: Signed 13-Jun-2017 Ankle min 3 Views Result: Comments: See Note; NOTES: [facility] Imaging Services [address] [place] [address] Ankle min 3 Views MR#: [id number] Acct: [id number] Name: DESTINI CHIU Rep #: [id number] : 1960 F 56 From: Justin Ruth MD PCP: Kenzie Villa MD Status: REG CLI Study: Ankle min 3 Views Date of Exam: 06/13/17 Exam# [id number] Ordering Dr: Maria Elena Dunne STUDY: X-RAY [...] Service support , CC: Maria Elena Dunne ONBOARDING SPECIALIST; Kenzie Villa MD Pastry Decorator: Signed 13-Jun-2017 Ankle min 3 Views Result: Comments: See Note; NOTES: [facility] Imaging Services [address] [place] [address] Ankle min 3 Views MR#: [id number] Acct: [id number] Name: DESTINI CHIU Rep #: [id number] : 1960 F 56 From: Justin Ruth MD PCP: Kenzie Villa MD Status: REG CLI Study: Ankle min 3 Views Date of Exam: 06/13/17 Exam# [id number] Ordering Dr: Maria Elena Dunne STUDY: X-RAY [...] of the ankle. Electronic ally Signed: Justin Ruht MD at 16:47 EDT , Service support , CC: Maria Elena Dunne ONBOARDING SPECIALIST; Kenzie Villa MD Pastry Decorator: Signed 17-Apr-2017 Breast Limited Unilateral Result: Comments: See Note; NOTES: [facility] Imaging Services [address] [place] [address] Breast Limited Unilateral MR#: [id number] Acct: [id number] Name: DESTINI CHIU Rep #: [id number] : 1960 F 56 From: Jeanmarie Nicole MD PCP: Kenzie Villa MD Status: REG CLI Study: Breast Limited Unilateral Date of Exam: 04/17/17 Exam# [id number] Ordering Dr: Maria Elena Dunne STUDY: ULTRA [...] Jeanmarie Nicole MD at 13:36 EST Tel [phone], Service support , CC: Maria Elena Dunne ONBOARDING SPECIALIST; Kenzie Villa MD Pastry Decorator: Signed 11-Apr-2017 SCREENING MAMM (CAD), BILAT Result: Comments: See Note; NOTES: [facility] Imaging Services [address] [place] [address] SCREENING MAMM (CAD), BILAT MR#: [id number] Acct: [id number] Name: DESTINI CHIU Rep #: [id number] : 1960 F 56 From: Jeanmarie Nicole MD PCP: Kenzie Villa MD Status: REG CLI Study: SCREENING MAMM (CAD), BILAT Date of Exam: 04/11/17 Exam# [id number] Ordering Dr: Maria Elena DunneOGRHoracio PHY - BILATERAL SCREENING REASON FOR EXAM: [...] biopsy of a clinically suspicious abnormal ity. [id number] Electronically Signed: Jeanmarie Nicole MD at 8:25 EST Tel [phone], Service support , CC: Maria Elena Dunne ONBOARDING SPECIALIST; Kenzie Villa MD Pastry Decorator: Signed 06-Mar-2017 Dexa Bone Density Study (HP) Result: Comments: See Note; NOTES: [facility] Imaging Services [address] [place] [address] Dexa Bone Density Study (HP) MR#: [id number] Acct: [id number] Name: DESTINI CHIU Rep #: [id number] : 1960 F 56 From: Jeanmarie Nicole MD PCP: Kenzie Villa MD Status: REG CLI Study: Dexa Bone Density Study (HP) Date of Exam: 03/06/17 Exam# [id number] Ordering Dr: Maria Elena Dunne STUDY: DUAL [...] Victorino Nicole MD at 13:36 EST Tel [phone], Service support , CC: Maria Elena Dunne ONBOARDING SPECIALIST; Kenzie Villa MD Pastry Decorator: Signed 13-Dec-2015 Thyroid Result: Comments: See Note; NOTES: [facility] Imaging Services [address] [place] [address] Verdana 4d Thyroid MR#: [id number] Acct: [id number] Name: DESTINI CHIU Rep #: [id number] DO B: 1960 F 55 From: Jeanmarie Nicole MD PCP: Kenzie Villa MD Status: REG CLI Study: Thyroid Date of Exam: 12/13/15 Exam# [id number] Ordering Dr: Lynn Gleason MD STUDY: THYROID [...] Jeanmarie Nicole MD at 8:28 EDT Tel [phone], Service support [phone], CC: Kenzie Villa MD; Lynn Gleason MD Pastry Decorator: Signed 16-Mar-2015 Bilat Scrn Digital AND CAD Result: Comments: See Note; NOTES: [facility] Imaging Services [address] [place] [address] Verdana 4d Bilat Scrn Digital AND CAD MR#: [id number] Acct: [id number] Name: DESTINI CHIU Rep #: [id number] : 1960 F 54 From: Jeanmarie Nicole MD PCP: Kenzie Villa MD Status: REG CLI Study: Bilat Scrn Digital AND CAD Date of Exam: 03/16/15 Exam# [id number] Ordering Dr: Kenzie Villa MD MAMMOGRAPHY - [...] delay biopsy of a clinically suspicious abnormality. [id number] Electronically Signed: Jeanmarie Nicole MD 2 at 8:59 EST Tel [phone], Service support [phone], CC: Kenzie Villa MD Pastry Decorator: Signed 12-Oct-2014 Unilat Lt Diag Digital AND CAD Result: Comments: See Note; NOTES: [facility] Imaging Services [address] [place] [address] Breast Imaging Report MR#: [id number] Acct: [id number] Name: DESTINI CHIU Rep #: [id number] : 1960 F 54 From: Jeanmarie Nicole MD PCP: Kenzie Villa MD Status: REG CLI Study: Unilat Lt Diag Digital AND CAD Date of Exam: 10/12/14 Exam# [id number] Ordering Dr: Kenzie Villa MD MAMMOGRAPHY - [...] Jeanmarie Nicole MD at 13:58 EDT Tel [phone], Service support [phone], CC: Kenzie Villa MD Pastry Decorator: Signed 24-Mar-2014 Breast Limited Unilateral Result: Comments: See Note; NOTES: [facility] Imaging Services [address] [place] [address] Ultrasound Report MR#: [id number] Acct: [id number] Name: DESTINI CHIU Rep #: [id number] : 1960 F 53 From: Jeanmarie Nicole MD PCP: Kenzie Villa MD Status: REG CLI Study: Breast Limited Unilateral Date of Exam: 03/24/14 Exam# [id number] Ordering Dr: Kenzie Villa MD CHUCK DY: [...] Jeanmarie Nicole MD at 15:22 EST Tel [phone], Service support [phone], CC: Kenzie Villa MD Pastry Decorator: Signed 14-Mar-2014 Bilat Scrn Digital AND CAD Result: Comments: See Note; NOTES: [facility] Imaging Services [address] [place] [address] Breast Imaging Report MR#: [id number] Acct: [id number] Name: DESTINI CHIU Rep #: [id number] : 1960 F 53 From: Pavel Olmstead MD PCP: Kenzie Villa MD Status: REG CLI Study: Bilat Scrn Digital AND CAD Date of Exam: 03/14/14 Exam# [id number] Ordering Dr: Kenzie Villa MD MAMMO GRAPHY [...] Michael Olmstead MD at 16:16 EST Tel [phone], Service support [phone], CC: Kenzie Villa MD Pastry Decorator: Signed Family History Unknown Family Member Name [...] kg/m2 Body Surface Area Calculated 1.8 m2 7-Scb-313238:06 Pulse 82 /min Comments: Pattern: Regular Respiration [...] Date Description Value Details :29 LIPID PANEL (27771) Comments: Dec; PATIENT WAS FASTINGPERFORMED BY: [employer] Yappe [facility] [id number] LDL/HDL Ratio 2.1 {ratio} (Normal) Range: 0.0-3.2 [...] be changing to: Male Female 40 - 710451 50 - 393004 Triglycerides 80 mg/dL (Normal) Range: 0-149 Cholesterol, Total 209 mg/dL (Abnormal) Range: 100-199 :29 MICROALBUMIN: CREATININE RATIO Comments: today; PATIENT WAS FASTINGPERFORMED BY: [employer] Pnbakc9903 [facility] [id number] (52545) AND (83256) Alb/Creat Ratio 25.4 {mg/g_creat} (Normal) Range: 0.0-30.0 Comments: Normal: 0.0 - 30.0 Albuminuria: 31.0 - 300.0 Clinical albuminuria: >300.0 Albumin, Urine 30.6 ug/mL (Normal) Creatinine, Urine 120.6 mg/dL (Normal) :29 CALCIFEDIOL (77545) Comments: dec 2017; PATIENT WAS FASTINGPERFORMED BY: iSquareSt. Francis Medical CenterJytebg4499 [facility] [id number] Vitamin D, 25-Hydroxy 45.0 ng/mL (Normal) Range: 30.0-100.0 Comments: Vitamin D deficiency has been defined by the [place] and an Endocrine Society practice guideline as alevel of serum 25-OH vitamin D less than 20 ng/mL (1,2).The Endocrine Society went on to further define vitamin Dinsufficiency as a level between 21 and 29 ng/mL (2).1. IOM ([place] [employer]). 2010. Dietary reference intakes for calcium and D. [place]: The National Academies Press.2. Brianne MF, Macy NAVARRETE, Briana CROSS, et al. Evaluation, treatment, and prevention of vitamin D deficiency: an Endocrine Society clinical practice guideline. JCEM. 2010; 96(7):1911-30. :29 HGB A1C (94834) Comments: Dec 2017; PATIENT WAS FASTINGPERFORMED BY: [employer] Ezazpl8714 [address] [place] [id number] Hemoglobin A1c 5.9 % (Abnormal) Range: 4.8-5.6 Comments: . Prediabetes: 5.7 - 6.4 Diabetes: >6.4 Glycemic control for adults with diabetes: <7.0 :29 TSH (THYROID STIMULATING Comments: dec 2017; PATIENT WAS FASTINGPERFORMED BY: [employer] Acdqmd8349 [address]IG[address] [place] [id number] HORMONE) (05152) TSH 4.670 {uIU/mL} (Abnormal) Range: 0.450-4.500 56-Uvn-75712:51 Microscopic Examination Comments: PATIENT WAS FASTINGPERFORMED BY: [facility] Ycnypa6971 [address] [id number] Bacteria None seen (Normal) Mucus Threads Present (Normal) Epithelial Cells (non renal) 0-10 {/hpf} (Normal) Range: 0 - 10 RBC 0-2 {/hpf} (Normal) Range: 0 - 2 WBC 0-5 {/hpf} (Normal) Range: 0 - 5 :51 Lipid Panel (19963) Comments: PATIENT WAS FASTINGPERFORMED BY: [employer] [facility] Tylmjh1379 Sam RoadDublin [place] [id number] LDL/HDL Ratio 2.1 {ratio_units} (Normal) Range: 0.0-3.2 Comments: LDL/HDL Ratio Men Women 1/2 Avg.Risk 1.0 1.5 Av g.Risk 3.6 3.2 2X Avg.Risk 6.2 5.0 3X Avg.Risk 8.0 6.1 LDL Cholesterol Calc 124 mg/dL (Abnormal) Range: 0-99 VLDL Cholesterol Suraj 18 mg/dL (Normal) Range: 5-40 HDL Cholesterol 58 mg/dL (Normal) Triglycerides 90 mg/dL (Normal) Range: 0-149 Cholesterol, Total 200 mg/dL (Abnormal) Range: 100-199 54-Zwm-68773:51 Metabolic Panel, Comprehensive Comments: PATIENT WAS FASTINGPERFORMED BY: LabCoSt. Francis Medical CenterTbyxbg5642 [facility] [id number] (55782) ALT (SGPT) 25 [iU]/L (Normal) Range: 0-32 [...] 6-24 Glucose 103 mg/dL (Abnormal) Range: 65-99 66-Kcw-43882:51 URINALYSIS (13061) Comments: PATIENT WAS FASTINGPERFORMED BY: [facility]6370 [facility] [id number] Microscopic Examination See below: (Normal) Comments: Microscopic was indicated and was performed. Nitrite, Urine Negative (Normal) Urobilinogen,Semi-Qn 0.2 mg/dL (Normal) Range: 0.2-1.0 Bilirubin Negative (Normal) Occult Blood Negative (Normal) Ketones Negative (Normal) Glucose Negative (Normal) Protein Negative (Normal) WBC Esterase 1+ (Abnormal) Appearance Clear (Normal) Urine-Color Yellow (Normal) pH 6.5 (Normal) Range: 5.0-7.5 Specific [place] 1.017 (Normal) Range: 1.005-1.030 58-Coe-40497:51 MICROALBUMIN: CREATININE RATIO Comments: PATIENT WAS FASTINGPERFORMED BY: [facility] [id number] (67511) AND (48470) Alb/Creat Ratio 69.2 {mg/g_creat} (Abnormal) Range: 0.0-30.0 Albumin, Urine 58.1 ug/mL (Normal) Creatinine, Urine 83.9 mg/dL (Normal) 59-Dlg-10135:51 TSH (89847) Comments: PATIENT WAS FASTINGPERFORMED BY: [facility] [id number] TSH 1.460 {uIU/mL} (Normal) Range: 0.450-4.500 06-Gzd-17371:51 CBC, Platelets & Auto Diff Comments: PATIENT WAS FASTINGPERFORMED BY: [place] 0475270 [facility] [id number] (12553) Immature Grans (Abs) 0.0 {x10E3/uL} (Normal) Range: [...] 3.77-5.28 WBC 5.8 {x10E3/uL} (Normal) Range: 3.4-10.8 25-Lwa-09260:51 HGB A1C (34466) Comments: PATIENT WAS FASTINGPERFORMED BY: [employer] Yappe [facility] [id number] Hemoglobin A1c 5.9 % (Abnormal) Range: 4.8-5.6 Comments: . Pre-diabetes: 5.7 - 6.4 Diabetes: >6.4 Glycemic control for adults with diabetes: <7.0 60-Tci-813831:23 HGB A1C (76670) Comments: Today; PATIENT NOT FASTINGPERFORMED BY: [employer] Ggmnrf7268 [facility] [id number] Hemoglobin A1c 5.7 % (Abnormal) Range: 4.8-5.6 Comments: . Pre-diabetes: 5.7 - 6.4 Diabetes: >6.4 Glycemic control for adults with diabetes: <7.0 39-Onx-235011:08 HGB A1C (22800) Comments: today; PATIENT NOT FASTINGPERFORMED BY: [employer] Yappe [facility] [id number] Hemoglobin A1c 6.0 % (Abnormal) Range: 4.8-5.6 Comments: . Pre-diabetes: 5.7 - 6.4 Diabetes: >6.4 Glycemic control for adults with diabetes: <7.0 :08 GLUCOSE (95123) Comments: today; PATIENT NOT FASTINGPERFORMED BY: [facility] Cdwmtp5835 Sam RoadDublin [place] [id number] Glucose, Serum 75 mg/dL (Normal) Range: 65-99 97-Era-006679:08 CALCIFEDIOL (86471) Comments: today; PATIENT NOT FASTINGPERFORMED BY: [facility] Ytefgz7029 Sam RoadDublin [place] [id number] Vitamin D, 25-Hydroxy 22.1 ng/mL (Abnormal) Range: 30.0-100.0 Comments: Vitamin D deficiency has been defined by the [place] ofC[facility] and an Endocrine Society practice guideline as alevel of serum 25-OH vitamin D less than 20 ng/mL (1,2).The Endocrine Society went on to further define vitamin Dinsufficiency as a level between 21 and 29 ng/mL (2).1. IOM ([place] [employer]). 2010. Dietary reference intakes for calcium and D. [place]: The National Academies Press.2. Brianne MF, Macy [place], Birana CROSS, et al. Evaluation, treatment, and prevention of vitamin D deficiency: an Endocrine Society clinical practice guideline. JCEM. 2010; 96(7):1911-30. 26-Inj-759679:08 TSH (THYROID STIMULATING Comments: today; PATIENT NOT FASTINGPERFORMED BY: [facility] Xstlww2502 [address] [facility] [place] [id number] HORMONE) (42197) TSH 0.732 {uIU/mL} (Normal) Range: 0.450-4.500 :22 T3, FREE (TRIDOTHYRONINE) (49911) Comments: PATIENT WAS FASTINGPERFORMED BY: [facility] Ponnvw1257 Sam RoadDublin [place] [id number] Triiodothyronine,Free,Serum 2.6 pg/mL (Normal) Range: 2.0-4.4 :22 T4, FREE (THYROXINE) (64056) Comments: PATIENT WAS FASTINGPERFORMED BY: [employer] Jwnprd4354 [facility]in [place] [id number] T4,Free(Direct) 1.75 ng/dL (Normal) Range: 0.82-1.77 :22 HGB A1C (05152) Comments: PATIENT WAS FASTINGPERFORMED BY: [facility] Yrnzgv4973 [facility] [id number] Hemoglobin A1c 6.1 % (Abnormal) Range: 4.8-5.6 Comments: . Pre-diabetes: 5.7 - 6.4 Diabetes: >6.4 Glycemic control for adults with diabetes: <7.0 4-Qyc-958126:13 MICROALBUMIN: CREATININE Comments: PATIENT NOT FASTINGPERFORMED BY: [employer] Pjvarc4968 [facility] [id number] Information: [id number] RATIO (05889) AND (51107) Microalb/Creat Ratio 15.5 {mg/g_creat} (Normal) Range: 0.0-30.0 Microalbumin, Urine 9.8 ug/mL (Normal) Creatinine, Urine 63.3 mg/dL (Normal) :22 VITAMIN B12 AND FOLATES Comments: PATIENT WAS FASTINGPERFORMED BY: [employer] Zngesc0246 [facility] [id number] (00754) Folate (Folic Acid), Serum 9.6 ng/mL (Normal) Comments: A serum folate concentration of less than 3.1 ng/mL isconsidered to represent clinical deficiency. Vitamin B12 573 pg/mL (Normal) Range: 211-946 :22 CALCIFEDIOL (38678) Comments: PATIENT WAS FASTINGPERFORMED BY: [facility]Asc[facility]6370 [facility] [id number] Vitamin D, 25-Hydroxy 18.8 ng/mL (Abnormal) Range: 30.0-100.0 Comments: Vitamin D deficiency has been defined by the [place] of[place]icine and an Endocrine Society practice guideline as alevel of serum 25-OH vitamin D less than 20 ng/mL (1,2).The Endocrine Society went on to further define vitamin Dinsufficiency as a level between 21 and 29 ng/mL (2).1. IOM ([place] [employer]). 2010. Dietary reference intakes for calcium and D. [place]: The National AcademLasso Press.2. Brianne MF, Macy [place], Briana CROSS, et al. Evaluation, treatment, and prevention of vitamin D deficiency: an Endocrine Society clinical practice guideline. JCEM. 2010; 96(7):1911-30. :22 TSH (THYROID STIMULATING Comments: PATIENT WAS FASTINGPERFORMED BY: [employer] [place] [id number] HORMONE) (87084) TSH 0.127 {uIU/mL} (Abnormal) Range: 0.450-4.500 :22 LIPID PANEL (56519) Comments: PATIENT WAS FASTINGPERFORMED BY: [facility]EC[facility] [id number] LDL/HDL Ratio 2.3 {ratio_units} (Normal) Range: 0.0-3.2 Comments: LDL/HDL Ratio Men Women 1/2 Avg.Risk 1.0 1.5 Av g.Risk 3.6 3.2 2X Avg.Risk 6.2 5.0 3X Avg.Risk 8.0 6.1 LDL Cholesterol Calc 111 mg/dL (Abnormal) Range: 0-99 VLDL Cholesterol Suraj 27 mg/dL (Normal) Range: 5-40 HDL Cholesterol 49 mg/dL (Normal) Triglycerides 133 mg/dL (Normal) Range: 0-149 Cholesterol, Total 187 mg/dL (Normal) Range: 100-199 :22 METABOLIC PANEL, COMPREHENSIVE Comments: PATIENT WAS FASTINGPERFORMED BY: [facility] [id number] (44035) ALT (SGPT) 31 [iU]/L (Normal) Range: 0-32 [...] Glucose, Serum 95 mg/dL (Normal) Range: 65-99 44-Vkc-73120:22 CBC, PLATELETS & AUT DIFF Comments: PATIENT WAS FASTINGPERFORMED BY: [facility] Zrqdgm6434 [facility] [id number] (50581) Immature Grans (Abs) 0.0 {x10E3/uL} (Normal) Range: [...] 3.77-5.28 WBC 4.9 {x10E3/uL} (Normal) Range: 3.4-10.8 09-Caq-766637:00 IGP, Aptima HPV, rfx Comments: No. of containers..01 CYTYC Thin Prep VialPATIENT NOT FASTINGPERFORMED BY: =G [facility] [id number] BY: WB [facility] [id number] 16/18,45 HPV Aptima Negative (Normal) Comments: This [...] present.V72.31 ; Routine gynecolog ical examholly Piper, Plant Technical Specialist (ASCP) 33-Lut-368487:00 Thin Prep Pap (56668) Comments: No. of containers..01 CYTYC Thin Prep VialPATIENT NOT FASTINGPERFORMED BY: =G [facility] Fpauqebnwq919 [address] PlazaCharleston [place] [id number] BY: WB [facility] Tlnyonvzsi186 [address] PlazaCharlest on [place] [id number] Information: [id number] Age Gdln ACOG Testing 30-65 (Normal) 96-Pbk-241549:14 Antithyroglobulin Ab Comments: PATIENT WAS FASTINGPERFORMED BY: [employer]6370 [facility] [id number] Thyroglobulin, Antibody <1.0 {IU/mL} Range: 0.0-0.9 (Normal) Comments: Low positive Thyroglobulin antibodies are seen in a portion of theasymptomatic populations.Antithyroglobulin antibodies measured by [employer] 14-Jul-19 TSH 0.472 {uIU/mL} Comments: PATIENT WAS FASTINGPERFORMED BY: [employer] Zyxfbw7024 Wi3ECU [facility] [id number] Information: [id number] 1511:14 (Normal) Range: 0.450-4.500 14-Jul-19 Written Authorization WAR (Normal) Comments: PATIENT WAS FASTINGPERFORMED BY: Research Journalist Twwipc6761 [facility] [id number] 1511:14 Comments: Written Authorization Received.Authorization received from NORIS FREEMAN [phone] by Tasha Balderas 60-Lvt-057667:14 CALCIFEDIOL (85505) Comments: PATIENT WAS FASTINGPERFORMED BY: iSquareSt. Francis Medical CenterBnevgl5449 [facility] [id number] Vitamin D, 25-Hydroxy 16.3 ng/mL (Abnormal) Range: 30.0-100.0 Comments: Vitamin D deficiency has been defined by the [place] of[place]icine and an Endocrine Society practice guideline as alevel of serum 25-OH vitamin D less than 20 ng/mL (1,2).The Endocrine Society went on to further define vitamin Dinsufficiency as a level between 21 and 29 ng/mL (2).1. IOM ([place] [employer]). 2010. Dietary reference intakes for calcium and D. [place]: The National Academies Press.2. Brianne MF, Macy NAVARRETE, Briana CROSS, et al. Evaluation, treatment, and prevention of vitamin D deficiency: an Endocrine Society clinical practice guideline. JCEM. 2010; 96(7):1911-30. 30-Rqq-784257:14 LIPID PANEL (80727) Comments: PATIENT WAS FASTINGPERFORMED BY: [employer] Faytfd0186 [facility] [id number] LDL/HDL Ratio 1.9 {ratio_units} (Normal) Range: 0.0-3.2 [...] Cholesterol, Total 173 mg/dL (Normal) Range: 100-199 73-Bgi-381455:14 METABOLIC PANEL, COMPREHENSIVE Comments: PATIENT WAS FASTINGPERFORMED BY: [employer] Gfrsho3687 [facility] [id number] (48871) ALT (SGPT) 20 [iU]/L (Normal) Range: 0-32 [...] Glucose, Serum 91 mg/dL (Normal) Range: 65-99 00-Thq-607831:14 CBC, PLATELETS & MANUAL Comments: PATIENT WAS FASTINGPERFORMED BY: LabCoSt. Francis Medical CenterDtaxvg8189 [facility] [id number] Information: [id number] DIFF ([id number]) Immature Grans (Abs) 0.0 {x10E3/uL} (Normal) Range: [...] 3.77-5.28 WBC 6.0 {x10E3/uL} (Normal) Range: 3.4-10.8 :25 Thyroglobulin Reflex Profile Comments: PATIENT NOT FASTINGPERFORMED BY: BigTipCoSt. Francis Medical CenterPbtjyc0499 [facility] [id number] Thyroglobulin, Antibody <1.0 {IU/mL} Range: 0.0-0.9 (Normal) Comments: Antithyroglobulin antibodies measured by [employer] Methodology Thyroglobulin, Serum 0.4 ng/mL Comments: PATIENT NOT FASTINGPERFORMED BY: LabCoSt. Francis Medical CenterWqmpgb0281 [facility] [id number] :25 (Abnormal) Range: 1.5-38.5 Comments: According to the National Academy of Clinical Biochemistry, thereference interval for Thyroglobulin (TG) should be related toeuthyroid patients and not for patients who underwent thyroidectomy.TG refere nce intervals for these patients depend on the residualmass of the thyroid tissue left after surgery. Establishing apost-operative baseline is recommended.The assay limit of quantitation is 0.1 ng/mL .Thyroglobulin measured by e[employer] Immunometric Assay 5-Glu-335093:25 Metabolic Panel, Basic Comments: PATIENT NOT FASTINGPERFORMED BY: LabCoSt. [facility] Medical CenterRilifa4376 [facility] [id number] Information: [id number] (05071) Calcium, Serum 9.5 mg/dL (Normal) Range: 8.7-10.2 [...] Glucose, Serum 95 mg/dL (Normal) Range: 65-99 00-Wcf-71196:22 CBC with manual diff Comments: PATIENT WAS FASTINGPERFORMED BY: LabCoSt. Francis Medical CenterMztlor8607 [facility] [id number] Information: [id number] ([id number]) Immature Grans (Abs) 0.0 {x10E3/uL} (Normal) Range: [...] 3.77-5.28 WBC 5.3 {x10E3/uL} (Normal) Range: 4.0-10.5 :22 Lipid Panel (69002) Comments: PATIENT WAS FASTINGPERFORMED BY: [employer]70 [facility] [id number] LDL/HDL Ratio 1.9 {ratio_units} (Normal) Range: 0.0-3.2 [...] Panel, Comprehensive Comments: PATIENT WAS FASTINGPERFORMED BY: Research Journalist Pldjod4883 [facility] [id number] ([id number]) ALT (SGPT) 20 [iU]/L (Normal) Range: 0-32 [...] Glucose, Serum 102 mg/dL (Abnormal) Range: 65-99 34-Zgm-61707:22 TSH ([id number]) Comments: PATIENT WAS FASTINGPERFORMED BY: ActXSt. Francis Medical CenterSsbbvl4863 [facility] [id number] TSH 0.184 {uIU/mL} (Abnormal) Range: 0.450-4.500 35-Quk-31316:22 THYROGLOBULIN ANTIBODY ([id number]) Comments: PATIENT WAS FASTINGPERFORMED BY: ActXSt. Francis Medical CenterKtfsdt6920 [facility] [id number] Antithyroglobulin Ab <20 {IU/mL} (Normal) Range: 0-40 Comments: [employer] ([employer]ap[employer]) ICMA Methodology 43-Yqo-751096:14 PAPIG0 Comments: CYTOLOGY INFORMATION:- CLINICAL INFORMATION: - DATE LMP/MENOPAUSE: - COLLECTION VIAL: Thin Prep Vial- SENIOR ELECTRICAL DESIGNER SOURCE: - COLLECTION TECHNIQUE: tPAPSMR Comment (Normal) [...] squamous metaplasticcells (endocervical component) are present.Bijal Guaman, Plant Technical Specialist (ASCP )This liquid based ThinPrep(R) pap test was screened withthe use of an image guided system.Performed at: [facility] [id number] Director: Mario Crawley MD, Phone: [phone] 69-Nvl-233332:14 CBCMD ANISO 1+ (Normal) RBCM N CHROM [...] 7-18 GLU 82 mg/dL (Normal) Range: 70-110 33-Nzs-093877:14 LIPID VLDL 12 mg/dL (Normal) Range: 5-40 [...] Very High > or = 500 mg/dL 99-Lge-226724:14 MIACRE tMICROCREAT 41.5 {mg/g_CRE} (Abnormal) MIALB 27.7 mg/L (Normal) CREU 66.6 mg/dL (Normal) 03-Vhu-907262:14 [facility] 0 SEEN {/hpf} (Normal) UBAC RARE [...] (Normal) UCLAR CLEAR (Normal) UCOL YELLOW (Normal) 5-Xyv-246462:26 METABOLIC PANEL, COMPREHENSIVE Comments: PATIENT WAS FASTINGPERFORMED BY: LabCoSt. Francis Medical CenterTatlvt4242 [facility] [id number] ([id number]) ALT (SGPT) 18 [iU]/L (Normal) Range: 0-32 [...] Glucose, Serum 96 mg/dL (Normal) Range: 65-99 8-Hoa-900613:26 LIPID PANEL (59393) Comments: PATIENT WAS FASTINGPERFORMED BY: ActXSt. Francis Medical CenterLchpdl1539 [facility] [id number] LDL/HDL Ratio 2.2 {ratio_units} (Normal) Range: 0.0-3.2 LDL Cholesterol Calc 139 mg/dL (Abnormal) Range: 0-99 VLDL Cholesterol Suraj 16 mg/dL (Normal) Range: 5-40 HDL Cholesterol 63 mg/dL (Normal) Comments: According to ATP-III Guidelines, HDL-C >59 mg/dL is considered anegative risk factor for CHD. Triglycerides 78 mg/dL (Normal) Range: 0-149 Cholesterol, Total 218 mg/dL (Abnormal) Range: 100-199 :26 CBC WITH MANUAL DIFF Comments: PATIENT WAS FASTINGPERFORMED BY: Actionsoft6370 [facility] [id number] Information: [id number] ORDER NO DRAW F EE ([id number]) Immature Grans (Abs) 0.0 {x10E3/uL} (Normal) Range: [...] Indication: Well woman exam Planned Observations CALCIFEDIOL (35904)Indication: Vitamin D deficiency, unspecified On: 4-Sfh-736534:43 Request Comments: today HGB A1C (31604)Indication: Impaired fasting glucose On: 4-Log-038818:42 Request Comments: today METABOLIC PANEL, COMPREHENSIVE (01820)Indication: Hypothyroid On: :23 Request HGB A1C (47277)Indication: Impaired fasting glucose On: :23 Request LIPID PANEL (49387)Indication: Hypothyroid On: :23 Request CALCIFEDIOL (52412)Indication: Vitamin D deficiency, unspecified On: 54-Reb-561745:56 Request Comments: Feb 2017 HGB A1C (56782)Indication: Impaired fasting glucose On: 49-Ubk-322667:53 Request Comments: Feb 2017 T4, FREE (THYROXINE) (10783)Indication: Hypothyroid On: 24-Vty-401492:53 Request Comments: Feb 2017 T3, FREE (TRIDOTHYRONINE) (94549)Indication: Hypothyroid On: :52 Request Comments: Feb 2017 TSH (THYROID STIMULATING HORMONE) (15063)Indication: Hypothyroid On: 86-Erp-511628:52 Request Comments: Feb 2017 TSH (THYROID STIMULATING HORMONE) (19951)Indication: Hypothyroid On: 81-Unp-752318:59 Request Comments: Do on or around July 08, 2016 HGB A1C (99423)Indication: Prediabetes On: :50 Request Comments: to be done after August 28 GLUCOSE (62192)Indication: Prediabetes On: :50 Request Comments: to be done after August 28 THYROGLOBULIN ANTIBODY (33121)Indication: Thyroid cancer On: :53 Request THYROGLOBULIN (72826)Indication: Thyroid cancer On: :51 Request URINALYSIS, W/ MICRO (08035)Indication: Hypertension, benign On: :51 Request METABOLIC PANEL, COMPREHENSIVE (58370)Indication: Hypertension, benign On: :51 Request LIPID PANEL (38775)Indication: Hypertension, benign On: :51 Request CBC with auto diff (45973)Indication: Hypertension, benign On: :51 Request CALCIFIDIOL (27614) VIT D 25Indication: Vitamin D deficiency, unspecified On: :47 Request T4, FREE (THYROXINE) (18824)Indication: Thyroid cancer On: :38 Request TSH (65064)Indication: Thyroid cancer On: :38 Request T3, FREE (TRIDOTHYRONINE) (32156)Indication: Thyroid cancer On: :38 Request TSH (21748)Indication: Thyroid cancer On: 75-Zto-150524:37 Request CALCIFIDIOL (04625) VIT D 25Indication: Vitamin D deficiency, unspecified On: 02-Jnl-851623:37 Request CALCIFEDIOL (63017)Indication: Vitamin D deficiency, unspecified On: 3-Ovu-775546:04 Request Comments: recheck in 8 wks THYROGLOBULIN (52959)Indication: Thyroid cancer On: :37 Request Comments: today CALCIFIDIOL (42932) VIT D 25Indication: Vitamin D deficiency, unspecified On: :37 Request Comments: in efw months TSH (14293)Indication: Thyroid cancer On: :22 Request T4, FREE (THYROXINE) (13606)Indication: Thyroid cancer On: 8-Fka-779040:22 Request THYROGLOBULIN (37280)Indication: Thyroid cancer On: 46-Ewv-379496:49 Request Thin prep Pap (07465)Indication: Well woman exam On: 10-Ovr-722644:53 Request URINALYSIS, W/ MICRO (27470)Indication: Hypertension, benign On: :51 Request MICROALBUMIN: CREATININE RATIO (50692) AND (42054)Indication: Hypertension, benign On: 60-Cvi-638614:51 Request Planned Procedures XR ANKLE BILATERAL, 3 VIEWS On: 13-Jun-2017 Intent ([id number])By: Maria Elena Dunne CNP, CNP, Mary E Radiology - Ankle - RightBy: Vihba On: 13-Jun-2017 Intent Maria Elena LORA CNP, Mary E Comments: Send to Dr. Olivas DEXA SCAN AXIAL SKELETON ([id number])By: On: 09-Dec-2016 Intent Maria Elena Dunne CNP, CNP, Mary E SCREENING DIGITAL TOMOSYNTHESIS OF On: 09-Dec-2016 Intent BREAST (14265)By: Maria Elena Dunne CNP, CNP, Mary E XR CLAVICLE RIGHT, 2 VIEWS (98556)By: On: 05-May-2015 Intent Kenzie Villa MD ELECTROCARDIOGRAM, COMPLETE (ECG) On: 05-May-2015 Intent (41176)By: Kenzie Villa MD Comments: see scanned document of test done to see results reviewed today with patient BILATERAL MAMMOGRAMS ([id number])By: On: 13-Oct-2014 Intent Kenzie Villa MD Comments: due in 12-15 DIAG DIGITAL MAMMOGRAM UNILAT On: 10-Oct-2014 Intent ([id number])By: Kenzie Villa MD MAMMOGRAM, SCREENING, BOTH BREAST On: 15-Jul-2014 Intent ([id number])By: Kenzie Villa MD EKG (70961)By: Kenzie Villa MD On: 30-Mar-2013 Intent Comments: see scanned document of test done to see results reviewed today with patient MAMMOGRAM, SCREENING, BOTH BREASTS On: 30-Mar-2013 Intent (32030)By: Kenzie Villa MD Eprescribed prescriptions ([id number])By: On: 30-Mar-2013 Intent Janna Vasquez EKG (31536)By: STEPHANIE Wright On: 01-Oct-2012 Intent MAMMOGRAM, SCREENING, BOTH BREASTS On: 10-Sep-2011 Intent (55211)By: Kenzie Villa MD TDAP VACCINE >7 IM (09708)By: Daisy On: 05-Aug-2011 Intent Kenzie GARCIA Comments: Declined at this time and will check with insurance to see about coverage for innoculation--Pamela ELECTROCARDIOGRAM, COMPLETE (ECG) On: 05-Aug-2011 Intent (00982)By: Pamela Bush LPN MAMMOGRAM, SCREENING, BOTH BREASTS On: 05-Aug-2011 Intent (09412)By: Kenzie Villa MD Instructions Name Dates Details [...] : Patient Instructions Indication: Hypertension, benign Encounters Office Visit On: 29-Dec-2017 13:14 Encounter Reason: Follow up for chronic medical issues - The patient feels well with minor complaints (foot still bothering pt. goes to see salomon bello tomorrow), has good energy level and is [...] top of head throbbing while standing at [employer] and then sat down, then went away. [...] has been compliant with instructions. Current medication End: 09-Dec-2016 14:06 e: no side effects, [...] (Pap,Mammo,Routine Female) (Renamed from Well Woman V72.31 (p,m)) End: 13-Oct-2014 15:00 [facility] [...] Female) (Renamed from Well Woman V72.31 (p,m)), Abnormal finding on mammography, Hypertension,benign(401.1), [...] is not using a End: 10-Sep-2011 17:07 ny method of contraception at this time. Patient exercises 3 - 4 times per week. The patient's libido is normal. The patient reports that she performs monthly self breast exam. Calcium intake includes 2 serving(s) milk daily.Encounter Diagnosis: Well Woman Exam (V72.31) (Pap,Mammo,Routine Female) (Renamed from Well Woman V72.31 (p,m)) [facility] Office [...] trait (282.5) [facility] Payers Medical [facility] CenterDestini Chiu; horacio guarantor
--- OUTSIDE RECORDS SUMMARY | 2018-06-09 09:00 | XMS RPT_ITS ---
:1960 Author Organization OHIP Care Team Providers Name Role Phone Maria Elena Dunne Attending Unavailable Maria Elena Dunne Primary Care Unavailable Maria Elena Dunne Attending Unavailable Kenzie Villa Primary Care Unavailable VibhaMaria Elena Attending Unavailable DaisyKenzie Primary Care Unavailable Greta Fajardo Attending Unavailable KarmaMaria Elena ambrocio Primary Care Unavailable Jori Olivas Attending Unavailable Jori Olivas Referring Unavailable Maria Elena Dunne Primary Care Unavailable PROBLEMS PROBLEMS No Problem Records FoundPROCEDURES PROCEDURES No Procedure Records FoundRESULTS RESULTS SCREENING MAMM (CAD), Observed: 04/07/2018 Status: F Source: [place] BIL 8:48 AM [facility] REPOSITORY [facility] Imaging Services [address] [place] [address] SCREENING MAMM (CAD), BILAT MR#: [id number] Acct: [id number] Name: JOSE L WALKER Rep #: [id number] : 1960 F 57 From: Jeanmarie Nicole MD PCP: Maria Elena Dunne NP Status: REG CLI Study: SCREENING MAMM (CAD), BILAT Date of Exam: 04/07/18 Exam# [id number] Ordering Dr: Maria Elena Dunne MILLER HEAD WET PROCESS-C MAMMOGRAPHY - BILATERAL SCREENING REASON FOR EXAM: Female, 57 years old. Routine annual screening examination. PERTINENT HISTORY: Non-contributory. Remote right stereotactic breast biopsy. TECHNIQUE: Digital bilateral breast elvira (3D mammographic acquisition) in the CC and MLO projections. 2-D mediolateral oblique (MLO) and craniocaudad (CC) views of both breasts were obtained. CAD: Full Field Digital Mammography with Computer Added Detection was performed. COMPARISON: Comparison is made with prior study dated April 11, 2017 and March 16, 2015. FINDINGS: Breast Composition: There are scattered areas of fibroglandular density. There are no dominant masses or suspicious calcifications. The previously seen nodular density in the upper midportion of the left breast has decreased in size. It presently measures 4.6 mm. A tissue clip marker is once again seen in the retroareolar region of the right breast. Stable 5.9 mm well-defined nodule in the anterior upper lateral portion of the right breast. This most likely represents a small cyst. Correlation with ultrasound is recommended. No other significant abnormalities are identified. There has been no significant change since the prior study. BI/SCREENING MAMM (CAD), BILAT IMPRESSION: Decreased size of the nodule in the left breast as described. 5.9 mm well-defined nodule in the anterior upper lateral portion of the right breast. Correlation with ultrasound is recommended. ASSESSMENT CATEGORY: BIRADS Category 0: Incomplete. Need additional imaging evaluation. A letter regarding these results will be sent to the patient by the facility within 30 days. Approximately 10% of breast cancers are not detected by mammography. A normal mammogram should not delay biopsy of a clinically suspicious abnormality. [id number] Electronically Signed: Jeanmarie Nicole MD at 9:53 EST Tel [phone], Service support , CC: Maria Elena Dunne NP Residential Insurance Inspector: Signed LOWER EXT/NO JT/W/O Observed: 01/14/2018 Status: F Source: [place] 7:49 AM [facility] REPOSITORY [facility] Imaging Services [address] [place] [address] Lower Ext/No Jt/w/o MR#: [id number] Acct: [id number] Name: JOSE L WALKER Rep #: [id number] : 1960 F 57 From: Duong Sam MD PCP: Maria Elena Dunne NP Status: REG CLI Study: Lower Ext/No Jt/w/o Date of Exam: 01/14/18 Exam# [id number] Ordering Dr: Jori Olivas DPM STUDY: MRI LEFT MIDFOOT REASON FOR EXAM: Pain across the dorsal midfoot after object fell on the foot 4 months ago. TECHNIQUE: Standardized fat and water weighted pulse sequences were obtained in all 3 orthogonal planes. COMPARISON: Radiographs 09/10/2017. FINDINGS: Normal talonavicular articulation. Normal calcaneocuboid articulation. Normal navicular-cuneiform articulations. Normal intercuneiform articulations. There is a subchondral cyst of the proximal first metatarsal at the first tarsometatarsal articulation (inversion recovery sagittal image 8). There is a partial tear of the proximal aspect of Lisfranc ligament (T2 series 6 image 8). There is arthrosis of the second tarsometatarsal joint with chondral thinning and subchondral cystic change at the dorsal aspect of the articulation (T1 sagittal image 11; inversion recovery sagittal image 11). Normal third tarsometatarsal articulation. Normal cuboid fourth and cuboid fifth tarsometatarsal articulation. There is no demonstrated metatarsal fracture. There is mild arthrosis of [...] MRI/Lower Ext/No Jt/w/o IMPRESSION: Partial tear of Lisfranc ligament. Arthrosis of the second tarsometatarsal joint. Subchondral cyst of the first metatarsal base at the tarsometatarsal joint. Mild arthrosis of the first metatarsophalangeal joint. Electronically Signed: Duong Sam MD at 10:00 EDT Tel , Service support , CC: Maria Elena Dunne MILLER HEAD WET PROCESS; Jori Olivas DPM Residential Insurance Inspector: Signed EMERGENCY DEPARTMENT Observed: 09/10/2017 Status: F Source: [place] SUMMARY 8:59 PM [facility] REPOSITORY [facility] Medical Records Department [address] [place] [address] Emergency Department Summary 09/10/17 1812 MR#: [id number] Acct: [id number] Name: JOSE L WALKER Rep #: [id number] : 1960 57 From: Greta Fajardo MD [...] able to ambulate with pain. She tried Aleve at home. No other injuries Physical Examination: Vitals are stable. Patient is afebrile. Alert no acute distress. HEENT exam is unremarkable. Lungs are clear and equal bilaterally. Heart is regular rate and rhythm. Extremities left midfoot tenderness, no ankle or knee tenderness. Normal pulse Skin is warm and dry. No focal neurologic deficit. Remainder of exam is unremarkable. Emergency Department Course and Treatment: Ice pack was applied. X-ray of the left foot shows no acute process. She was given a postop shoe. She is advised to use NSAIDs for pain. Advised to follow-up with her primary care physician. Advised to return to ED for worsening complaints. Disposition: Discharge home Impression: Left foot contusion This note was generated with [employer] dictation software. It may contain incorrect words, [...] your Primary Care Provider. Call [facility] ([phone]) or report to the closest Emergency Room. Call 911 if necessary. 09/10/172058 <Electronically signed by Greta Fajardo MD> Date Greta Fajardo MD Cosigner Signature (If Indicated): Date CC: Maria Elena Dunne NP DISCHARGE INSTRUCTION Observed: 09/10/2017 Status: F Source: [place] 8:59 PM [facility] REPOSITORY [facility] Medical Records Department [address] [place] [address] Discharge Instruction 09/10/172058 MR#: [id number] Acct: [id number] Name: AARONJOSE L A Rep #: [id number] : 1960 57 From: Greta Fajardo MD [...] your Primary Care Provider. Call [facility] ([phone]) or report to the closest Emergency Room. Call 911 if necessary. 09/10/172058 <Electronically signed by Greta Fajardo MD> Date Greta Fajardo MD Cosigner Signature (If Indicated): Date CC: Maria Elena Dunne NP FOOT MIN 3 VIEWS Observed: 09/10/2017 Status: F Source: [place] 6:11 PM [facility] REPOSITORY [facility] Imaging Services [address] [place] [address] Foot min 3 Views MR#: [id number] Acct: [id number] Name: JOSE L WALKER Rep #: [id number] : 1960 F 57 From: Emmanuel Abbasi DO PCP: Maria Elena Dunne NP Status: REG ER Study: Foot min 3 Views Date of Exam: 09/10/17 Exam# [id number] Ordering Dr: Greta Fajardo MD STUDY: X-RAY - LEFT FOOT CLINICAL: Female, 57 years old. Left foot pain TECHNIQUE: 3 view(s) of the foot. COMPARISON: None. FINDINGS: Normal talus, calcaneus, and tarsal bones. Normal visualized subtalar, talonavicular, calcaneocuboid, tarsal and tarsometatarsal articulations. Normal metatarsi. Normal metatarsophalangeal joint of the great toe. Normal tibial and fibular sesamoid bones. Normal interphalangeal joint of the great toe. Normal phalanges of the great toe. Normal second through fifth metatarsophalangeal joints. Normal interphalangeal joints and phalanges of the lesser toes. The soft tissue structures are unremarkable. RAD/Foot min 3 Views IMPRESSION: Normal x-ray examination of the foot. Electronically Signed: Emmanuel Abbasi DO at 20:52 EDT Tel , Service support , CC: Maria Elena Dunne MILLER HEAD WET PROCESS; Greta Fajardo MD Residential Insurance Inspector: Signed ANKLE MIN 3 VIEWS Observed: 06/13/2017 Status: F Source: [place] 10:22 AM [facility] REPOSITORY [facility] Imaging Services [address] [place] [address] Ankle min 3 Views MR#: [id number] Acct: [id number] Name: JOSE L WALKER Rep #: [id number] : 1960 F 56 From: Justin Ruth MD PCP: Kenzie Villa MD Status: REG CLI Study: Ankle min 3 Views Date of Exam: 06/13/17 Exam# [id number] Ordering Dr: Maria Elena Dunne STUDY: X-RAY - LEFT ANKLE REASON FOR EXAM: Female, 56 years old. posterior ankle pain bilaterally TECHNIQUE: 3 view(s) of the ankle. COMPARISON: None. FINDINGS: Normal visualized distal tibia and fibula. Normal medial and lateral malleoli. Normal tibiotalar articulation and ankle mortise. There is a calcaneal spur. The visualized subtalar, talonavicular, calcaneocuboid and tarsal articulations are normal. The soft tissue structures are unremarkable. RAD/Ankle min 3 Views IMPRESSION: There is a calcaneal spur. Electronically Signed: Justin Ruth MD at 17:09 EDT , Service support , CC: Maria Elena Dunne MILLER HEAD WET PROCESS; Kenzie Villa MD Residential Insurance Inspector: Signed ANKLE MIN 3 VIEWS Observed: 06/13/2017 Status: F Source: [place] 8:58 AM [facility] REPOSITORY [facility] Imaging Services [address] [place] [address] Ankle min 3 Views MR#: [id number] Acct: [id number] Name: JOSE L WALKER Rep #: [id number] : 1960 F 56 From: Justin Ruth MD PCP: Kenzie Villa MD Status: REG CLI Study: Ankle min 3 Views Date of Exam: 06/13/17 Exam# [id number] Ordering Dr: Maria Elena Dunne STUDY: X-RAY - RIGHT ANKLE REASON FOR EXAM: Female, 56 years old. posterior ankle pain TECHNIQUE: 3 view(s) of the ankle. COMPARISON: None. FINDINGS: Normal visualized distal tibia and fibula. Normal medial and lateral malleoli. Normal tibiotalar articulation and ankle mortise. Normal visualized talus and calcaneus. The visualized subtalar, talonavicular, calcaneocuboid and tarsal articulations are normal. The soft tissue structures are unremarkable. RAD/Ankle min 3 Views IMPRESSION: Normal x-ray examination of the ankle. Electronically Signed: Justin Ruth MD at 16:47 EDT , Service support , CC: Maria Elena Dunne MILLER HEAD WET PROCESS; Kenzie Villa MD Residential Insurance Inspector: Signed BREAST LIMITED Observed: 04/17/2017 Status: F Source: [place] UNILATERAL 12:42 PM [facility] REPOSITORY [facility] Imaging Services [address] [place] [address] [place] [address] Breast Limited Unilateral MR#: [id number] Acct: [id number] Name: JOSE L WALKER Rep #: [id number] : 1960 F 56 From: Jeanmarie Nicole MD PCP: Kenzie Villa MD Status: REG CLI Study: Breast Limited Unilateral Date of Exam: 04/17/17 Exam# [id number] Ordering Dr: Maria Elena Dunne STUDY: ULTRASOUND BREAST - LEFT REASON FOR EXAM: Female, 56 years old. Abnormal screening mammogram. TECHNIQUE: Axial and longitudinal images of the LEFT breast were performed with a high resolution ultrasound transducer. COMPARISON: Comparison is made with prior mammogram dated April 11, 2017 and prior sonogram of the left breast dated March 24, 2014. FINDINGS: LEFT Breast: There is a 6 mm x 7 [...] Jeanmarie Nicole MD at 13:36 EST Tel [phone], Service support , CC: Maria Elena Dunne MILLER HEAD WET PROCESS; Kenzie Villa MD Residential Insurance Inspector: Signed ALLERGIES ALLERGIES DATE TYPE / CODE NAME / CODE REACTION SEVERITY SOURCE 09/10/2017 Drug No Known Unknown Coleman [facility] Allergy/4160 Allergies/F00 Hospital 69767(SNOMED [id number](RXNOR Repository CT) M) ENCOUNTERS ENCOUNTERS ADMIT/DISCHARGE ACCOUNT ADMITTING ENCOUNTER LOCATION SOURCE NUMBER CLASS 04/07/2018 [id number] Ambulatory Coleman Coleman 6 [facility] ing:OPBI Repository 01/14/2018 [id number] Ambulatory Coleman Krista 9 [facility] ing:MRI Repository 09/10/2017/ [id number] Emergency Krista Coleman 8 6 [facility] ing:ED Repository 06/13/2017 [id number] Ambulatory Krista Coleman 2 [facility] ing:HPRAD Repository 04/17/2017 [id number] Ambulatory Krista Krista 6 [facility] ing:[facility] Repository PAYERS PAYERS ENCOUNTER GUARANTOR PAYER SUBSCRIBER SOURCE 04/07/2018 [id number] [id number] Primary JOSE L A Coleman [place] Insurance:MEDICAL GOFFDOB[place] [facility] [id number] [address]Msy: 330) Number: Repository [phone] ) [id number] Date:0866-22-04IC [address] [place] [address]UR: 04/07/2018 Secondary NOT GIVENUNK Coleman Insurance:SELF PAY [facility] Number: Effective Repository Date:2018-03-27 01/14/2018 JAGJITPEDRO [id number] Primary JOSE L A Krista [place] Insurance[id number] [address]Tvx: (330) Number: Repository [phone] () [id number] Date:3369-47-79CH [address] [place] [address]WB: 01/14/2018 Secondary NOT GIVENUNK Krista Insurance:SELF PAY [facility] Number: Effective Repository Date:2018-01-07 09/10/2017 Jagjit [id number] Primary JOSE L A Coleman [place] Insurance:MEDICAL GOFFDOB: [facility] [place] [id number] [address]Jkf: (330) Number: Repository [phone] () [id number] Date:4749-85-54WN [address] [address]SA: 09/10/2017 Secondary NOT GIVENUNK Krista Insurance:SELF PAY [facility] Number: Effective Repository Date:2017-09-10 06/13/2017 Jagjit [id number] Primary JOSE L GOFFDOB: Coleman [place] Insurance[id number] [address]: Number: Repository [id number] () Date:5334-84-23AM [address] [address]JC: 06/13/2017 Secondary NOT GIVENUNK Krista Insurance:SELF PAY [facility] Number: Effective Repository Date:2017-06-13 04/17/2017 Jagjit [id number] Primary JOSE L GOFFDOB: Krista [place] Insurance:MEDICAL [id number] [address]Hps: Number: Repository [id number] (HP) Date:9013-07-38OS [address] [address]TE: 04/17/2017 Secondary NOT GIVENUNK Coleman Insurance:SELF PAY [facility] Number: Effective Repository Date:2017-04-14
== END ==
PROVIDERS: Family Provider Nurse Practitioner; PCP Nurse Practitioner; Visit Provider Nurse Practitioner
DX: Z12.31 Encounter for screening mammogram for malignant neoplasm of breast (principal)
CPT/HCPCS: 77063; 77067

== ENCOUNTER → 2018-04-20 12:30 | Outpatient (CLI) | payer OTHER, SELFPAY ==
--- NOTE | 2018-04-20 12:41 | US_ITS ---
STUDY: ULTRASOUND BREAST - RIGHT REASON FOR EXAM: Female, 57 years old. Abnormal screening mammogram. TECHNIQUE: Axial and longitudinal images of the RIGHT breast were performed with a high resolution ultrasound transducer. COMPARISON: Comparison is made with prior mammogram dated 2018 and prior ultrasound of the left breast dated April 17, 2017. FINDINGS: RIGHT Breast: The mammographic abnormality corresponds to a 5 mm x 4 mm x 4 mm hypoechoic solid nodule with a central area of increased echotexture at the 10:00 position of the breast at 7 cm from the nipple. This most likely represents a small lymph node. US/Breast Limited Unilateral IMPRESSION: The mammographic findings corresponds to a 5 mm x 4 mm x 4 mm benign-appearing lymph node at the 10:00 position breast at 7 cm from nipple. ASSESSMENT CATEGORY: BIRADS Category 2: Benign. A letter regarding these results will be sent to the patient by the facility within 30 days. Electronically Signed: Jeanmarie Nicole MD at 8:21 EST , Service support ,
== END ==
PROVIDERS: Family Provider Nurse Practitioner; PCP Nurse Practitioner; Referring Provider Nurse Practitioner; Visit Provider Nurse Practitioner
DX: R92.8 Other abnormal and inconclusive findings on diagnostic imaging of breast (principal)
CPT/HCPCS: 76642

== ENCOUNTER 2018-09-15 11:00 | Outpatient (RCR) | payer OTHER, SELFPAY ==
--- NOTE | 2018-07-23 09:54 | HP.PTEVAL ---
Patient's Visit Information JOSE L WALKRE is a 57 year old F referred to Physical Therapy by Jori Olivas DPM with a diagnosis of L foot contusion with lisfrac injury. Date of Evaluation: 07/23/18 Physical Therapist: Houston Sanchez DPT - Visit Plan Frequency: 2-3x /Week Duration: 4-6 Weeks Plan: Start with modalities including US and ionto for pain control. Progress stability exercises and proprioception exercises once able to complete with decreased pain. Progress HEP. - Subjective Findings: Pt. is here today for her initial evaluation with diagnosis of L lisfranc injury after having metal bar fall on her foot ~10 months ago. pt. reports she was at [facility] when a bar fell on her foot. Pt. has had pain since. Pt. reports pain is always there, more of a dull ache that increases with walking. Pt. has had an MRI showing a partial tear of the lisfrac ligament of her mid foot. 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 She reports minimal pain at rest, but pain increases with walking and stair negotiation. Pt. reports overall she had been less active due to this pain. She reports minimal pain with sleeping. Pt. is able to walk, but does have pain with this. Pt. denies N/T in either foot. Pt. is hopeful to reduce symptoms in order to get back to all recreational activities without limitations. - Pain L foot Pain Intensity (Out of 10): 2 Pain Intensity Range: 1, 5 - Objective POSTURE: Pt. has good equal wt. shift between B LEs. Pt. has normal foot positioning in stance. PALPATION: Pt. has increased pain on dorsum of foot, mid foot. Pt. has no pain in any of toes, no plantar surface pain. NEURO: normal throughout, normal achilles DTR bilaterally. ROM: Pt. has normal ROM of B ankle and feet without increase in symptoms. Pt. does have increased pain with joint mobs to mid foot and tarsal bones. No marked laxity noted. MMT: Pt. has normal strength throughout ankles, mild reduce intrinsic flexor strength loss 4/5 of L foot. pt. did have increased symptoms with toe extensor MMT. GAIT: Pt. has decreased midfoot rocker moment on L side during transiton from mid stance to heel off. STAIRS: Increased pain during L eccentric lowering (end of that phase during heel off portion). - Goals Goal 1:: Pt. to be I with HEP. Goal Time Frame: 4-6 Weeks Goal 2:: Pt. to ambulate unlimited distances without increase in symptoms. Goal Time Frame: 4-6 Weeks Goal 3:: Pt. to have no pain at rest. Goal Time Frame: 4-6 Weeks Goal 4:: Pt. to negotiate steps without increase in symptoms with reciprocal pattern. Goal Time Frame: 4-6 Weeks - Rehabilitation Potential Physical Therapy Diagnosis: Pt. has signs and symptoms consistent with L foot contusion with lisfrac injury. Pt. would benefit from PT to reduce symptoms and progress back to functional stability/proprioception allowing for greater tolerance to walking and functional mobility. Rehabilitation Potential: Excellent - Anticipated Interventions Patient/Client Instruction: Educate patient on: Condition, Plan of Care, Risk Factors, Benefits of Fitness Program For the Purpose of:: To improve decision making, To facilitate caregiver knowledge, To improve self management, To prevent re-injury, To improve ability to perform tasks related to life management, To improve tolerance to ADL's Therapeutic Exercise to Include: Strength training, Power training, Endurance training, Balance training, Coordination, Body mechanics, Postural training, Gait and locomotor training, Passive ROM, Active ROM For the Purpose of:: To decrease pain, To decrease swelling/inflammation, To increase ROM, To improve nutrient delivery to tissue, To improve muscle performance and motor function, To improve ability to perform ADL's, To improve health of tissue, To improve safety with gait Manual Therapy Techniques to Include: Mobilization, Passive ROM For the Purpose of:: To decrease pain, To decrease swelling/inflammation, To increase ROM Iontophoresis (with Dexamethozone, with Acetic acid): Yes IF ES: Yes Cryotherapy (ice pack, ice massage): Yes Ultrasound (thermal/non thermal): Yes For the Purpose of:: To decrease pain, To decrease swelling/inflammation, To increase ROM Thank you for the opportunity to evaluate your patient. For Medicare and Medicare HMO plans, please review the plan of care and approve it. It will need to be FAXED BACK to us at [phone] for Medicare purposes. For Medicare only, by signing this I certify the plan of care. Please let me know if there are questions or concerns regarding this plan of care. Physician Signature: Date:
--- NOTE | 2019-02-17 14:40 | HP.PT.NRP ---
HP - Discharge Summary (1) - Patient Information JOSE L WALKER was seen in my office for initial evaluation on 07/17/18. The following Plan of Care was established for this patient: Initial Frequency: 2-3x /Week Initial Duration: 4-6 Weeks - Anticipated Interventions Patient/Client Instruction: Educate patient on: Condition, Plan of Care, Risk Factors, Benefits of Fitness Program For the Purpose of:: To improve decision making, To facilitate caregiver knowledge, To improve self management, To prevent re-injury, To improve ability to perform tasks related to life management, To improve tolerance to ADL's Therapeutic Exercise to Include: Strength training, Power training, Endurance training, Balance training, Coordination, Body mechanics, Postural training, Gait and locomotor training, Passive ROM, Active ROM For the Purpose of:: To decrease pain, To decrease swelling/inflammation, To increase ROM, To improve nutrient delivery to tissue, To improve muscle performance and motor function, To improve ability to perform ADL's, To improve health of tissue, To improve safety with gait Manual Therapy Techniques to Include: Mobilization, Passive ROM For the Purpose of:: To decrease pain, To decrease swelling/inflammation, To increase ROM Iontophoresis (with Dexamethozone, with Acetic acid): Yes IF ES: Yes Cryotherapy (ice pack, ice massage): Yes Ultrasound (thermal/non thermal): Yes For the Purpose of:: To decrease pain, To decrease swelling/inflammation, To increase ROM This patient was last seen in our office 08/21/18. Pertinent comments regarding their Physical therapy will appear below: Pt. was seen for her lisfrac injury. Pt. did very well and is back to 85% better. Pt. has not been seen in several months and will be DC from PT at this point in time. At this point I will be discontinuing this patient from physical therapy. I would be happy to see this patient again in the future if found appropriate by the physician. Thank you! Houston Sanchez, JESSICA
== END 2018-09-15 19:00 | disposition home or self-care (01) ==
LOC: PT 11:00
PROVIDERS: Family Provider Nurse Practitioner; PCP Nurse Practitioner; Referring Provider Podiatrist; Visit Provider Podiatrist
DX: S90.32XD Contusion of left foot, subsequent encounter (principal); S93.622D Sprain of tarsometatarsal ligament of left foot, subsequent encounter; M19.072 Primary osteoarthritis, left ankle and foot
CPT/HCPCS: 97033; 97035; 97110; 97140; 97161

== ENCOUNTER → 2019-08-30 | Outpatient (CLI) | payer OTHER, SELFPAY ==
[2019-08-30 18:00] LABS: Microalbumin,Random Urine 47.9 mg/L (NO RANGE EST.)
== END | disposition home or self-care (01) ==
LOC: LABSPEC 15:17
PROVIDERS: PCP Nurse Practitioner; Referring Provider Nurse Practitioner; Visit Provider Nurse Practitioner
DX: R80.9 Proteinuria, unspecified (principal)
CPT/HCPCS: 82043

== ENCOUNTER → 2019-10-21 15:20 | Outpatient (CLI) | payer OTHER, SELFPAY ==
--- NOTE | 2019-10-21 15:24 | BI_ITS ---
MAMMOGRAPHY - BILATERAL SCREENING REASON FOR EXAM: Female, 59 years old. Routine annual screening examination. PERTINENT HISTORY: Sister with breast cancer. Prior right ultrasound-guided breast biopsy and right stereotactic breast biopsy. TECHNIQUE: Digital bilateral breast emily (3D mammographic acquisition) in the CC and MLO projections. 2-D mediolateral oblique (MLO) and craniocaudad (CC) views of both breasts were obtained. CAD: Full Field Digital Mammography with Computer Added Detection was performed. COMPARISON: Comparison is made with prior examination dated 04/07/2018 and 04/11/2017. FINDINGS: Breast Composition: There are scattered areas of fibroglandular density. There are no dominant masses or suspicious calcifications. Stable appearance of the tissue marker in the retroareolar region of the right breast. There is a 6 mm x 4.4 mm well-defined nodule in the slightly upper lateral aspect of the right breast. This is unchanged. No other significant abnormalities are identified. There has been no significant change since the prior study. BI/SCREEN MAMM (CAD) W/EMILY BILAT IMPRESSION: Stable bilateral screening mammogram. Yearly follow-up mammogram recommended. (A) ASSESSMENT CATEGORY: BIRADS Category 2: Benign. A letter regarding these results will be sent to the patient by the facility within 30 days. Approximately 10% of breast cancers are not detected by mammography. A normal mammogram should not delay biopsy of a clinically suspicious abnormality. [id number] Electronically Signed: Jeanmarie Nicole, at 9:04 EDT , Service support ,
--- NOTE | 2019-10-21 15:26 | BD_ITS ---
STUDY: DUAL ENERGY X-RAY ABSORPTIOMETRY / DXA REASON FOR EXAM: Female, 59 years old. Age of oni 44. Pat is 175.2# and 64 and quot; a loss of 1.5-2 and quot; per pat. Takes synthroid and a multi-vit. Exercises moderatly. Has a hx of a left foot fx. TECHNIQUE: Bone Mineral Density (BMD) measurements of lumbar spine and bilateral hips were obtained. COMPARISON: Comparison is made with prior examination dated 03/06/2017. FINDINGS: Lumbar Spine (L1-L4): g/cm2 (1.303) / T-score (1.1) / Z-score (2.3) Findings are suggestive of normal bone density with a low fracture risk. Left Femur Total: g/cm2 (1.136) / T-score (1.0) / Z-score (1.9) Left Femoral Neck: g/cm2 (1.111) / T-score (0.5) / Z-score (1.8) Right Femur Total: g/cm2 (1.208) / T-score (1.6) / Z-score (2.5) Right Femoral Neck: g/cm2 (1.173) / T-score (1.0) / Z-score (2.2) The T-Scores on the most recent prior examination were: Lumbar Spine (L1-L4): There has been worsening of bone density since the previous examination. Left Femur Total: which represents a worsening of 3.2%. Right Femur Total: which represents a worsening of 0.5%. BD/Dexa Bone Density Study IMPRESSION: The patient is considered normal as outlined below according to World Jhony Organization (WHO) criteria with a low fracture risk. There has been worsening of bone density since the previous examination. Reference Information: The T-score is the number of standard deviations above or below the standard which is normal for young adults at their peak bone mineral density. The World Health Organization (WHO) interprets the T-scores as follows: Above -1 Normal bone density Between -1 and -2.5 Osteopenia Equal to / or below -2.5 Osteoporosis As a practical clinical guideline, osteopenia may be graded as follows: Mild -1 through -1.5 Moderate -1.6 through -2.0 Severe -2.1 through -2.4 The Z-score is the number of standard deviations above or below age-matched controls. A Z-score of less than -1.5 would be considered abnormal. References: 1. NIH Osteoporosis and Related Bone Diseases http://www.osteo.org 2. International Society for Clinical Densitometry http://www.iscd.org 3. National Osteoporosis Foundation http://www.nof.org Electronically Signed: Jeanmarie Nicole, at 12:53 EDT , Service support ,
== END ==
PROVIDERS: PCP Nurse Practitioner; Referring Provider Nurse Practitioner; Visit Provider Nurse Practitioner
DX: Z78.0 Asymptomatic menopausal state (principal); Z12.31 Encounter for screening mammogram for malignant neoplasm of breast; Z80.3 Family history of malignant neoplasm of breast
CPT/HCPCS: 77063; 77067; 77080

== ENCOUNTER 2020-07-30 10:42 | Emergency (ER) | payer OTHER, SELFPAY ==
[2020-07-30 10:42] VITALS: BP 208/92; PULSE 83; RESP 18; TEMP 36.6; O2SAT 96
--- NOTE | 2020-07-30 10:52 | EKG12_ITS ---
Test Reason : LEFT NECKPAIN Blood Pressure : / mmHG Vent. Rate : 072 BPM Atrial Rate : 072 BPM P-R Int : 144 ms QRS Dur : 078 ms QT Int : 384 ms P-R-T Axes : 050 -20 -07 degrees QTc Int : 420 ms Normal sinus rhythm Minimal voltage criteria for LVH, may be normal variant Borderline ECG Confirmed by DEMOND GARCIA, BRET ([id number]), social media editor LUCIE MCNEIL ([id number]) on 08/01/2020 9:11:44 AM Referred By: HETAL Confirmed By:BRET LAGOS MD
--- NOTE | 2020-07-30 10:54 | EDS_ITS ---
HPI History of Present Illness Chief Complaint: Other, Pain/Inj Informant: patient Onset/Context/Timing Onset: Today Context: Onset with activity Timing: Intermittent Current Severity: Moderate Maximum Severity: Moderate Narrative Narrative: The patient is a 59-year-old female medical history significant for hypertension who presents to the emergency department with left-sided posterior neck pain. Patient states she woke in her normal state of health. She states her getting ready for work. She states she turned, and began to have pain in her upper trapezius area. It does not radiate to her chest. She denies shortness of breath. She states that the pain seemed to go away, but every time she turns, it comes back. She denies headache or visual change. She denies any near syncope. There is been no weakness or numbness. She had no trouble speaking or swallowing. She has no history of coronary vascular disease. Prior similar symptoms: No Recent Illness/Hospitalization: No PFSH PFSH Medical History (Updated 07/30/20 @ 11:58 by Lopez Adler) HTN (hypertension) Thyroid ca Home Medications amlodipine 5 mg PO DAILY 09/10/17 [History Last Taken Unknown] levothyroxine 137 mcg PO DAILY 09/10/17 [History Last Taken Unknown] naproxen 500 mg PO BID #20 tab 07/30/20 [Rx Last Taken Unknown] Allergy/AdvReac Type Severity Reaction Status Date / Time No Known Allergies Allergy Verified 07/30/20 10:45 Surgical History (Updated 07/30/20 @ 11:58 by Lopez Adler) H/O thyroidectomy Social History Smoking Status: Never smoker ROS ROS ED Constitutional Constitutional ED: Denies chills or fever(s) Eyes Eyes: Denies blurry vision or change in vision ENT ENT ED: Denies ear pain or sore throat Cardiovascular Cardiovascular: Denies chest pain or palpitations Respiratory/Chest Respiratory/Chest: Denies cough, dyspnea or dyspnea on exertion Gastrointestinal Gastrointestinal: Denies abdominal pain, nausea or vomiting Genitourinary Genitourinary ED: Denies dysuria or urinary frequency Musculoskeletal Musculoskeletal: Denies arthralgias or myalgias Integumentary Denies rash Neurologic Neurologic: Denies headache(s) or paresthesias Psychiatric Psychiatric: Denies anxiety or depression Endocrine Endocrinology: Denies polydipsia or polyuria Allergic/Immunologic Allergic/Immunologic ED: Denies urticaria EXAM Physical Exam Const Vital Signs: 07/30/20 10:42 07/30/20 11:48 Temperature 97.9 F Temperature Source Temporal Pulse Rate 83 70 Respiratory Rate 18 16 Blood Pressure 208/92 H 158/98 H Blood Pressure Mean 130 118 Pulse Ox 96 97 Oxygen Delivery Method Room Air Room Air Positive well nourished and well developed General Appearance ED: well developed HEENT Reports normocephalic, head/scalp atraumatic and moist mucous membranes Eyes PERRL and EOMs intact bilaterally Neck no lymphadenopathy and supple Neck Narrative: Patient is tender in the left-sided paraspinal musculature. She has normal pulses in the upper extremities. Normal reflexes. Normal strength. No tenderness along the carotids. General: tenderness Chest Wall inspection of chest normal Resp normal respiratory effort and clear to auscultation bilaterally Cardio regular rate, regular rhythm and no murmurs GI normal to inspection, nondistended, normoactive bowel sounds Palpation: Negative for tender, guarding or rebound tenderness present Back/Spine no CVA tenderness Cervical Spine: Negative for cervical spine tenderness Thoracic Spine / Upper Back: Negative for thoracic spinal tenderness Extremity normal to inspection General Extremety ED: Negative for tenderness Neuro oriented x3 and CN's II-XII intact bilaterally Neuro Narrative: No focal deficits appreciated. Sensorium / Orientation: alert Psych mental status grossly normal Skin no rashes or lesions noted, no wounds and skin turgor normal MDM MDM MDM Narrative Medical decision making narrative: The patient presents with left posterior neck pain. She has full range motion. She has normal pulses. She is had no neurologic symptoms. I do suspect that this is musculoskeletal, but given the patient's elevated blood pressure, metabolic work-up was pursued. Without intervention, her repeat blood pressure was 158 systolic. EKG was obtained which is sinus rhythm without evidence of acute ischemia. Screening labs including cardiac enzymes were unremarkable. Chest x-ray reviewed by both myself and the radiologist shows no cardiomegaly or focal infiltrative process. X-rays of the cervical spine do demonstrate some mild arthritic changes without fracture. Patient is given Toradol and is feeling improved. 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 I am going to treat the patient symptomatically with anti-inflammatories. She will be discharged home. Impression 1. Cervical strain Lab Data Attestation: I reviewed the patient's lab results. Labs: Laboratory Results - last 24 hr 07/30/20 07/30/20 11:00 11:00 WBC 6.4 RBC 4.94 Hgb 13.3 Hct 41.1 MCV 83.2 MCH 26.9 L MCHC 32.4 RDW Std Deviation 44.9 H RDW Coeff of Chet 14.8 H Plt Count 304 MPV 9.9 Immature Gran % (Auto) 0.500 Neut % (Auto) 60.6 Lymph % (Auto) 27.1 Person % (Auto) 7.8 Eos % (Auto) 3.1 Baso % (Auto) 0.9 Absolute Neuts (auto) 3.9 Absolute Lymphs (auto) 1.74 Nucleated RBC % 0 Sodium 143 Potassium 4.1 Chloride 108 H Carbon Dioxide 30.0 Anion Gap 5 BUN 13 Creatinine 0.95 Estim Creat Clear Calc 54.38 Est GFR (MDRD) Af Amer 77 Est GFR (MDRD) Non-Af 64 BUN/Creatinine Ratio 13.7 Glucose 123 H Calcium 9.3 Troponin I < 0.015 Radiography Chest X-Ray - ED: 1 View, Read by ED Physician, Read by Radiologist, Normal, Heart, Lungs, Mediastinum and Bony Structures Diagnostic Testing: Radiology Impression Cervical Spine X-Ray 07/30/20 11:22 IMPRESSION: Focal degenerative disc disease at C5/C6. Electronically Signed: Ty Cardona MD at 11:50 EDT Tel , Service support , Chest X-Ray 07/30/20 11:22 IMPRESSION: Normal x-ray examination of the chest. Electronically Signed: Ty Cardona MD at 11:49 EDT Tel , Service support , EKG Initial EKG: Attestation: I personally reviewed and interpreted this EKG as follows: Interpretation: Sinus Rhythm and No Acute Injury Pattern Prior EKG tracings: available for review Prior: Unchanged Discharge Plan Triage Chief Complaint: Other, Pain/Inj ED Provider: Sanjay Wynn Dx/Rx/DC Orders Instructions: ED Neck Sprain or Strain Prescriptions: New naproxen 500 MG tablet 500 mg PO BID Qty: 20 RF: 0 No Action levothyroxine 137 MCG tablet 137 mcg PO DAILY RF: 0 amlodipine 5 MG tablet 5 mg PO DAILY RF: 0 Primary Care Provider: Maria Elena Dunne NP Referrals: Maria Elena Dunne EGG PROCESSING SUPERVISOR, EGG PROCESSING SUPERVISOR-C [Primary Care Provider] -
[2020-07-30 11:11] LABS: Absolute Lymphocyte Count 1.74 X10^3/uL (0.83-4.51); Absolute Neutrophil Count 3.9 X10^3/uL (2.0-7.7); Basophil# 0.06 X10^3/uL; Basophil% 0.9 % (0-1); Eosinophils% 3.1 % (0-5); Hematocrit 41.1 % (37-47); Hemoglobin 13.3 g/dL (12.0-15.0); Lymphocyte # 1.74 X10^3/ul (0.83-4.51); Lymphocyte % 27.1 % (19-41); Mean Corp Hgb Conc 32.4 g/dL (32-36); Mean Corpuscular Hgb 26.9 pg (27.0-32.0); Mean Corpuscular Volume 83.2 fL (81-99); Mean Platelet Vol. 9.9 fl (6.2-12.0); Monocyte% 7.8 % (0-10); NRBC Flagged by Analyzer 0 % (0-5); Neutrophil # 3.89 X10^3/uL (2.7-7.7); Neutrophil % 60.6 % (47-70); Platelet Count 304 K/mm3 (150-450); RBC Distribution Width CV 14.8 % (11.6-14.6); RBC Distribution Width SD 44.9 fl (35.1-43.9); Red Blood Count 4.94 M/mm3 (4.2-5.4); White Blood Count 6.4 K/mm3 (4.4-11.0)
--- NOTE | 2020-07-30 11:22 | RAD_ITS ---
STUDY: X-RAY - CERVICAL SPINE REASON FOR EXAM: Female, 59 years old. pain TECHNIQUE: 3 view(s) of the cervical spine were obtained. COMPARISON: None FINDINGS: Normal anterior atlantoaxial articulation. Normal odontoid process. Normal cervical lordosis. Normal vertebral bodies and endplates. Focal disc space narrowing and osteophyte formation at C5-C6 consistent with degenerative disc disease. Normal visualized intervertebral neuroforamina. The soft tissue structures are unremarkable. RAD/Cerv Spine 2 or 3 Views IMPRESSION: Focal degenerative disc disease at C5/C6. Electronically Signed: Ty Cardona MD at 11:50 EDT Tel , Service support ,
--- NOTE | 2020-07-30 11:22 | RAD_ITS ---
STUDY: X-RAY CHEST REASON FOR EXAM: Female, 59 years old. chest pain TECHNIQUE: Single AP portable view of the chest. COMPARISON: None. FINDINGS: The lungs are clear and expanded. There is no demonstrated pleural abnormality. Normal size heart. Normal mediastinum and aline. Normal visualized pulmonary arteries. Normal visualized aortic arch and descending thoracic aorta. Normal visualized thoracic spine. Normal visualized ribs, clavicles, and shoulders. There is no demonstrated abnormality of the visualized soft tissue structures of the upper abdomen. RAD/Chest 1 View IMPRESSION: Normal x-ray examination of the chest. Electronically Signed: Ty Cardona MD at 11:49 EDT Tel , Service support ,
[2020-07-30 11:26] LABS: Anion Gap 5 (5-15); BUN 13 mg/dL (7-18); BUN/Creat Ratio 13.7 RATIO (10-20); Calcium,Total 9.3 mg/dL (8.5-10.1); Chloride 108 mmol/L (98-107); Creatinine, Serum 0.95 mg/dL (0.55-1.02); EST Glomerular Filtration Rate 64 mL/min (>60); Est Glom Filt Rate - Afr Amer 77 mL/min (>60); Estimated Creatinine Clearance 54.38 ml/min; Glucose 123 mg/dL (74-106); Potassium 4.1 mmol/L (3.5-5.1); Sodium Level 143 mmol/L (136-145)
[2020-07-30 11:48] VITALS: BP 158/98; PULSE 70; RESP 16; O2SAT 97; O2SAT 98
[2020-07-30] MEDS: Ketorolac 30 MG/ML Syringe IV (11:53)
[2020-07-30 12:00] VITALS: BP 174/99; PULSE 72; RESP 16; O2SAT 98
[2020-07-30 12:01] VITALS: BP 174/99; PULSE 72; RESP 20; O2SAT 98
== END 2020-07-30 12:26 | disposition home or self-care (01) ==
LOC: ED 11:39
PROVIDERS: Emergency Provider Emergency Medicine; PCP Nurse Practitioner
DX: S16.1XXA Strain of muscle, fascia and tendon at neck level, initial encounter (principal); I10 Essential (primary) hypertension; Z79.899 Other long term (current) drug therapy; X50.1XXA Overexertion from prolonged static or awkward postures, initial encounter; Y93.89 Activity, other specified; Y92.009 Unspecified place in unspecified non-institutional (private) residence as the place of occurrence of the external cause; Y99.8 Other external cause status
CPT/HCPCS: 71045; 72040; 80048; 84484; 85025; 93005; 96374; 99284; A4216

== ENCOUNTER → 2020-10-31 15:26 | Outpatient (CLI) | payer OTHER, SELFPAY ==
--- NOTE | 2020-10-31 15:28 | BI_ITS ---
MAMMOGRAPHY - BILATERAL SCREENING REASON FOR EXAM: Female, 60 years old. Routine annual screening examination. PERTINENT HISTORY: Sister with breast cancer. Remote right stereotactic and ultrasound-guided breast biopsy. TECHNIQUE: Digital bilateral breast emily (3D mammographic acquisition) in the CC and MLO projections. 2-D mediolateral oblique (MLO) and craniocaudad (CC) views of both breasts were obtained. CAD: Full Field Digital Mammography with Computer Added Detection was performed. COMPARISON: Comparison is made with prior study dated 10/21/2019 and 04/07/2018. FINDINGS: Breast Composition: There are scattered areas of fibroglandular density. There are no dominant masses or suspicious calcifications. Stable 6 mm x 4.4 mm well-defined nodule in the slightly upper lateral aspect of the stable benign-appearing bilateral axillary lymph nodes. Once again, a tissue clip marker is seen in the retroareolar region of the right breast. No other significant abnormalities are identified. There has been no significant change since the prior study. BI/SCRN MAMM (CAD)W/EMILY BILAT IMPRESSION: Stable bilateral screening mammogram. Yearly follow-up mammogram recommended. (A) ASSESSMENT CATEGORY: BIRADS Category 2: Benign. A letter regarding these results will be sent to the patient by the facility within 30 days. Approximately 10% of breast cancers are not detected by mammography. A normal mammogram should not delay biopsy of a clinically suspicious abnormality. [id number] Electronically Signed: Jeanmarie Nicole MD at 8:11 EDT , Service support ,
== END ==
PROVIDERS: PCP Nurse Practitioner; Referring Provider Nurse Practitioner; Visit Provider Nurse Practitioner
DX: Z12.31 Encounter for screening mammogram for malignant neoplasm of breast (principal)
CPT/HCPCS: 77063; 77067

== ENCOUNTER → 2021-09-14 | Outpatient (CLI) | payer OTHER, SELFPAY ==
--- NOTE | 2021-09-14 13:54 | STRESSREP ---
Stress Test Report Date: 09-14-2021 Procedure: Exercise tolerance test/imaging study Indications: Chest pain Consent: Per the patient Procedure: The patient exercised on a Wyatt protocol for 6 minutes completing Stage II achieving a peak heart rate of 162 bpm (102% predicted maximal heart rate) with a peak blood pressure 170/80 mmHg and a peak MET capacity of 7 METs. The baseline ECG demonstrated normal sinus rhythm; low voltage QRS-precordial leads. The peak exercise ECG demonstrated somatic/motion artifact with no obvious ECG changes. There was a rare PVC during exercise. The functional capacity was considered good. There was no complaint of chest discomfort during exercise or recovery. The examination was discontinued secondary to dyspnea. Impression: 1. Technically adequate (percent predicted maximal heart rate greater than 85%) exercise tolerance test 2. Peak exercise ECG with somatic/motion artifact with no obvious ECG changes 3. There was a rare PVC during exercise 4. Nuclear images pending Myocardial perfusion imaging study: Technique: The patient was injected with 14.4 mCi of technetium 99m Cardiolite and subsequently rest SPECT Cardiolite nuclear imaging was obtained in the horizontal long, vertical long, and short axis views. The patient exercised on a Wyatt protocol for 6 minutes completing Stage II achieving a peak heart rate of 162 bpm (102% predicted maximal heart rate) with a peak blood pressure 170/80 mmHg and a peak MET capacity of 7 METs. The patient was injected with 44.2 mCi of technetium 99m Cardiolite and subsequently stress SPECT Cardiolite nuclear imaging was obtained in the horizontal long, vertical long, and short axis views. A gated Cardiolite study at peak stress was obtained. Interpretation: Rest and stress SPECT Cardiolite nuclear imaging status post realignment, normalization, and attenuation correction, demonstrates the appearance of relative uniform tracer uptake and myocardial perfusion appearing within normal limits. There is end systolic thickening and brightening. The gated Cardiolite study demonstrates myocardial thickening and inward wall motion. The reported LVEF is 76%. Impression: 1. Rest and stress SPECT Cardiolite nuclear imaging demonstrate relative uniform tracer uptake and myocardial perfusion appearing within normal limits. 2. The gated Cardiolite study reports an LVEF of 76%. This note was generated with [employer] software. It may contain incorrect words, spelling, and punctuation that were not noted in checking the note before signing.
== END | disposition home or self-care (01) ==
PROVIDERS: PCP Internal Medicine; Visit Provider Internal Medicine
DX: R07.9 Chest pain, unspecified (principal)
CPT/HCPCS: 78452; 93017; A9500; A4216

== ENCOUNTER → 2022-01-01 | Outpatient (CLI) | payer OTHER, SELFPAY ==
--- NOTE | 2022-01-01 11:59 | BI_ITS ---
MAMMOGRAPHY - BILATERAL SCREENING REASON FOR EXAM: Female, 61 years old. Routine annual screening examination. PERTINENT HISTORY: Sister with breast cancer. Remote right stereotactic breast biopsy. TECHNIQUE: Digital bilateral breast emily (3D mammographic acquisition) in the CC and MLO projections. 2-D mediolateral oblique (MLO) and craniocaudad (CC) views of both breasts were obtained. CAD: Full Field Digital Mammography with Computer Added Detection was performed. COMPARISON: Comparison is made with prior study 10/31/2020 and 10/21/2019. FINDINGS: Breast Composition: There are scattered areas of fibroglandular density. There are no dominant masses or suspicious calcifications. Stable 4.4 mm well-defined nodule in the slightly upper lateral aspect of the right breast. A tissue marker is once again seen in the retroareolar region of the right breast. Stable benign-appearing bilateral axillary lymph nodes. No other significant abnormalities are identified. There has been no significant change since the prior study. BI/SCRN MAMM (CAD)W/EMILY BILAT IMPRESSION: Stable bilateral screening mammogram. Yearly follow-up mammogram recommended. (A) ASSESSMENT CATEGORY: BIRADS Category 2: Benign. A letter regarding these results will be sent to the patient by the facility within 30 days. Approximately 10% of breast cancers are not detected by mammography. A normal mammogram should not delay biopsy of a clinically suspicious abnormality. [id number] Electronically Signed: Jeanmarie Nicole MD at 12:38 EDT ,
== END | disposition home or self-care (01) ==
LOC: OPBI 11:57
PROVIDERS: PCP Nurse Practitioner Family; Referring Provider Nurse Practitioner Family; Visit Provider Nurse Practitioner Family
DX: Z12.31 Encounter for screening mammogram for malignant neoplasm of breast (principal); Z80.3 Family history of malignant neoplasm of breast
CPT/HCPCS: 77063; 77067

== ENCOUNTER → 2022-01-15 | Outpatient (CLI) | payer OTHER, SELFPAY ==
--- NOTE | 2022-01-15 15:27 | BD_ITS ---
STUDY: DUAL ENERGY X-RAY ABSORPTIOMETRY / DXA REASON FOR EXAM: Female, 61 years old. [id number] TECHNIQUE: Bone Mineral Density (BMD) measurements of lumbar spine and bilateral hips were obtained. COMPARISON: Comparison is made with prior study dated 10/21/2019. FINDINGS: Lumbar Spine (L1-L4): g/cm2 (1.127) / T-score (-0.2) / Z-score (1.5) Findings are suggestive of normal bone density with a low fracture risk. Left Femur Total: g/cm2 (1.058) / T-score (0.2) / Z-score (1.0) Left Femoral Neck: g/cm2 (0.956) / T-score (0.0) / Z-score (1.2) Right Femur Total: g/cm2 (1.128) / T-score (0.6) / Z-score (1.5) Right Femoral Neck: g/cm2 (1.007) / T-score (0.4) / Z-score (1.6) The T-Scores on the most recent prior examination were: Lumbar Spine (L1-L4): There has been worsening of bone density since the previous examination. Left Femur Total: which represents a worsening of 0.7%. Right Femur Total: which represents a worsening of 0.8%. BD/Dexa Bone Density Study IMPRESSION: The patient is considered normal as outlined below according to World Jhony Organization (WHO) criteria with a low fracture risk. There has been worsening of bone density since the previous examination. Reference Information: The T-score is the number of standard deviations above or below the standard which is normal for young adults at their peak bone mineral density. The World Health Organization (WHO) interprets the T-scores as follows: Above -1 Normal bone density Between -1 and -2.5 Osteopenia Equal to / or below -2.5 Osteoporosis As a practical clinical guideline, osteopenia may be graded as follows: Mild -1 through -1.5 Moderate -1.6 through -2.0 Severe -2.1 through -2.4 The Z-score is the number of standard deviations above or below age-matched controls. A Z-score of less than -1.5 would be considered abnormal. References: 1. NIH Osteoporosis and Related Bone Diseases www osteo.org 2. International Society for Clinical Densitometry www iscd.org 3. National Osteoporosis Foundation www nof.org Electronically Signed: Jeanmarie Nicole MD at 15:39 EDT ,
== END | disposition home or self-care (01) ==
LOC: OPBD 15:20
PROVIDERS: PCP Nurse Practitioner Family; Referring Provider Nurse Practitioner Family; Visit Provider Nurse Practitioner Family
DX: Z78.0 Asymptomatic menopausal state (principal); M85.80 Other specified disorders of bone density and structure, unspecified site
CPT/HCPCS: 77080

== ENCOUNTER → 2022-09-20 | Outpatient (CLI) | payer OTHER, SELFPAY ==
--- NOTE | 2022-09-20 13:55 | US_ITS ---
EXAM: US SOFT TISSUES HEAD AND NECK, THYROID CLINICAL INDICATION: cancer follow up, htn TECHNIQUE: Greyscale and color doppler imaging was performed of the thyroid gland. COMPARISON: No relevant prior studies available. FINDINGS: LEFT THYROID LOBE: Status post thyroidectomy. RIGHT THYROID LOBE: Status post thyroidectomy. ISTHMUS: Unremarkable. No thyroid nodules are present. LYMPH NODES: Small normal-appearing lymph node measuring 9 x 3 x 6 mm with a fatty hilum in the left thyroid bed. US/Thyroid IMPRESSION: 1. Status post thyroidectomy. 2. Small normal-appearing lymph node measuring 9 x 3 x 6 mm in the left thyroid bed. Electronically Signed: Sanjay England MD at 4:26 EDT ,
== END | disposition home or self-care (01) ==
LOC: US 13:54
PROVIDERS: PCP Nurse Practitioner Family; Referring Provider Nurse Practitioner Family; Visit Provider Nurse Practitioner Family
DX: I10 Essential (primary) hypertension (principal); E89.0 Postprocedural hypothyroidism
CPT/HCPCS: 76536

== ENCOUNTER → 2023-01-23 | Outpatient (CLI) | payer OTHER, SELFPAY ==
--- NOTE | 2023-01-23 07:38 | BI_ITS ---
MAMMOGRAPHY - BILATERAL SCREENING REASON FOR EXAM: Female, 62 years old. Routine annual screening examination. PERTINENT HISTORY: Sister with breast cancer. Prior right stereotactic breast biopsy. TECHNIQUE: Digital bilateral breast emily (3D mammographic acquisition) in the CC and MLO projections. 2-D mediolateral oblique (MLO) and craniocaudad (CC) views of both breasts were obtained. CAD: Full Field Digital Mammography with Computer Added Detection was performed. COMPARISON: Comparison is made with prior study January 01, 2022 and October 31, 2020. FINDINGS: Breast Composition: There are scattered areas of fibroglandular density. There are no dominant masses or suspicious calcifications. Stable 4.4 mm well-defined nodule in the slightly upper outer aspect of the right breast. A tissue clip marker is once again seen in the retroareolar region of the right breast. Stable small benign-appearing bilateral axillary lymph nodes. No other significant abnormalities are identified. There has been no significant change since the prior study. BI/SCRN MAMM (CAD)W/EMILY BILAT IMPRESSION: Stable bilateral screening mammogram. Yearly follow-up mammogram recommended. (A) ASSESSMENT CATEGORY: BIRADS Category 2: Benign. A letter regarding these results will be sent to the patient by the facility within 30 days. Approximately 10% of breast cancers are not detected by mammography. A normal mammogram should not delay biopsy of a clinically suspicious abnormality. [id number] Electronically Signed: Jeanmarie Nicole MD at 9:10 EST ,
== END | disposition home or self-care (01) ==
LOC: OPBI 07:37
PROVIDERS: PCP Nurse Practitioner Family; Referring Provider Nurse Practitioner Family; Visit Provider Nurse Practitioner Family
DX: Z12.31 Encounter for screening mammogram for malignant neoplasm of breast (principal); Z80.3 Family history of malignant neoplasm of breast
CPT/HCPCS: 77063; 77067

== ENCOUNTER → 2024-01-30 | Outpatient (CLI) | payer OTHER, SELFPAY ==
--- NOTE | 2024-01-30 10:07 | BI_ITS ---
MAMMOGRAPHY - BILATERAL SCREENING REASON FOR EXAM: Female, 63 years old. Routine annual screening examination. PERTINENT HISTORY: Sister with breast cancer. History of remote right stereotactic breast biopsy. TECHNIQUE: Digital bilateral breast emily (3D mammographic acquisition) in the CC and MLO projections. 2-D mediolateral oblique (MLO) and craniocaudad (CC) views of both breasts were obtained. CAD: Full Field Digital Mammography with Computer Added Detection was performed. COMPARISON: Comparison is made with prior study January 23, 2023 and January 01, 2022. FINDINGS: Breast Composition: There are scattered areas of fibroglandular density. There are no dominant masses or suspicious calcifications. Stable bilateral axillary lymph nodes. Stable 4.4 mm well-defined nodule in the slightly upper outer aspect of the right breast. This most likely represents a small lymph node. A tissue clip marker is once again seen in the retrocardiac region of the right breast. No other significant abnormalities are identified. There has been no significant change since the prior study. BI/SCRN MAMM (CAD)W/EMILY BILAT IMPRESSION: Stable bilateral screening mammogram. Yearly follow-up mammogram recommended. (A) ASSESSMENT CATEGORY: BIRADS Category 2: Benign. A letter regarding these results will be sent to the patient by the facility within 30 days. Approximately 10% of breast cancers are not detected by mammography. A normal mammogram should not delay biopsy of a clinically suspicious abnormality. [id number] Electronically Signed: Jeanmarie Nicole MD at 11:10 EST ,
== END | disposition home or self-care (01) ==
LOC: OPBI 10:06
PROVIDERS: PCP Nurse Practitioner Family; Referring Provider Nurse Practitioner Family; Visit Provider Nurse Practitioner Family
DX: Z12.31 Encounter for screening mammogram for malignant neoplasm of breast (principal)
CPT/HCPCS: 77063; 77067

== ENCOUNTER → 2024-05-18 | Outpatient (CLI) | payer OTHER, SELFPAY ==
--- NOTE | 2024-05-18 11:00 | RAD_ITS ---
PROCEDURE: THORACIC SPINE 3 VIEWS REASON FOR EXAM: Chest pressure. No known injury. History of thyroid cancer. TECHNIQUE: Single lateral view of the dorsal spine COMPARISON: None. FINDINGS: Normal vertebral heights. No evidence of fracture. Mild multilevel disc space narrowing. Normal alignment. No spondylolisthesis. There is a 2.4 cm by 2 cm dense calcification in the left upper quadrant. This may represent a calculus within the upper pole of the left kidney. There is also evidence of a popcorn like calcification in the medial aspect of the right upper quadrant measuring 1.2 cm. RAD/Thoracic Spine 3 Views IMPRESSION: Mild degree of degenerative changes. Calcifications in the upper quadrants as described. Correlation with CT Reading Location: [id number]
--- NOTE | 2024-05-18 11:00 | RAD_ITS ---
PROCEDURE: CHEST PA AND LATERAL TECHNIQUE: Frontal and lateral views of the chest. COMPARISON: None. FINDINGS: The cardiothymic contour is normal. The lungs are clear. The bones are unremarkable. RAD/Chest PA and Lateral IMPRESSION: NORMAL PEDIATRIC CHEST. Reading [facility]
== END | disposition home or self-care (01) ==
PROVIDERS: PCP Nurse Practitioner Family; Referring Provider Nurse Practitioner Family; Visit Provider Nurse Practitioner Family
DX: M54.9 Dorsalgia, unspecified (principal); R00.2 Palpitations
CPT/HCPCS: 71046; 72072; 93225; 93226

== ENCOUNTER → 2024-06-16 | Outpatient (CLI) | payer OTHER, SELFPAY ==
[2024-06-16 13:24] LABS: Magnesium 2.2 mg/dL (1.5-2.2)
[2024-06-16 13:45] LABS: Anion Gap 12 (5-15); BUN 11 mg/dL (4-19); BUN/Creat Ratio 12.5 RATIO (10-20); Calcium,Total 9.6 mg/dL (7.6-11.0); Carbon Dioxide 23.5 mmol/L (21.0-32.0); Chloride 103 mmol/L (98-108); Creatinine, Serum 0.89 mg/dL (0.70-1.20); EST Glomerular Filtration Rate 73 (>60); Glucose 86 mg/dL (70-99); Potassium 4.2 mmol/L (3.3-5.1); Sodium Level 138 mmol/L (133-145)
== END | disposition home or self-care (01) ==
LOC: LAB 11:29
PROVIDERS: PCP Nurse Practitioner Family; Referring Provider Internal Medicine Cardiovascular Disease; Visit Provider Internal Medicine Cardiovascular Disease
DX: R00.2 Palpitations (principal)
CPT/HCPCS: 36415; 80048; 83735

== ENCOUNTER → 2024-06-18 | Outpatient (CLI) | payer OTHER, SELFPAY ==
--- NOTE | 2024-06-18 15:47 | CT_ITS ---
PROCEDURE: Noncontrast CT of the abdomen/pelvis. 06/18/2024 REASON FOR EXAM: Left lower quadrant pain. Possible kidney stones. TECHNIQUE: Contiguous unenhanced axial CT images were obtained through the abdomen/pelvis. Sagittal and coronal reformats were created. One or more dose reduction techniques were used (e.g., Automated exposure control, adjustment of the mA and/or kV according to patient size, use of iterative reconstruction technique). COMPARISON: Thoracic spine radiographs 05/18/2024 FINDINGS: [id number] degenerative changes are present in the spine. Bones are mildly osteopenic. Evaluation of the solid organs and vascular structures is limited due to lack of intravenous contrast. Mild leftward convex curvature mid lumbar spine on the coronal images. Proximal femurs intact. Heart is not enlarged. No sizable pericardial effusion. Included lower breast tissue unremarkable. Lower lungs clear. There is moderate ingested material in the stomach. Patchy wall thickening of the stomach may be due to lack of distention versus peristalsis. Abdominal aorta normal in caliber. No large abdominal wall defect. No focal abnormality of the urinary bladder. There is a globular appearance of the uterus. No dominant adnexal lesion. No abnormally dilated bowel segments or free intraperitoneal air. Scattered patchy wall thickening of the colon may be due to lack of distention versus peristalsis or chronic diverticular disease. No evidence of acute diverticulitis. Moderate stool in the colon. Normal appendix. No abdominal/pelvic adenopathy or ascites. The kidneys are symmetric in size and attenuation. No dominant solid renal mass or obstructive uropathy. The adrenal glands there is a probable small and pancreas are unremarkable. Posterior diverticulum of the stomach on images 37-39 of the axial images, near the left adrenal gland. The spleen is not enlarged. There is a dense 3.3 cm calcification in the central spleen. A 13 mm coarse calcification is present in the central liver. CT/Abdomen/Pelvis without Cont IMPRESSION: No definite acute findings in the abdomen/pelvis. No radiopaque renal/ureteral calculi or obstructive uropathy. Colonic diverticulosis, without evidence of acute diverticulitis. Nonspecific coarse calcifications of the liver and spleen as above. The coarse calcification projecting over the left upper abdomen on the comparison thoracic spine radiographs corresponds to dense splen ic calcification. Globular appearance of the uterus, which could be due to fibroids. This could be better evaluated with follow-up pelvic ultrasound. Normal appendix. Reading Location: [facility]
== END | disposition home or self-care (01) ==
PROVIDERS: PCP Nurse Practitioner Family; Referring Provider Nurse Practitioner Family; Visit Provider Nurse Practitioner Family
DX: R10.32 Left lower quadrant pain (principal)
CPT/HCPCS: 74176

== ENCOUNTER → 2024-07-26 | Outpatient (CLI) | payer OTHER, SELFPAY ==
--- NOTE | 2024-07-26 12:55 | ECHOD_ITS ---
Reason For Study Reason For Study: Palpitations Procedure This was a 2D Doppler, Color Flow transthoracic echocardiogram. Exam performed in department. Left Ventricle Normal LV size. Left ventricular systolic function is normal. The left ventricular ejection fraction is 65 %. No regional wall motion abnormalities noted. Right Ventricle Normal RV size. Atria Normal left atrium. Normal right atrium. Mitral Valve Normal mitral valve. Tricuspid Valve Normal tricuspid valve. Mild tricuspid valve insufficiency. Pulmonary artery systolic pressure is 28 mmHg. Aortic Valve Trisinus/trileaflet aortic valve. Pulmonic Valve Normal pulmonic valve. Great Vessels Normal aortic root. The pulmonary artery is normal size. Inferior vena cava collapse with respiration. Pericardium/Pleural No pericardial effusion. MMode/2D Measurements & Calculations LVIDd: 3.7 cm IVSd: 0.81 cm Ao root diam: 2.7 cm LVIDs: 2.3 cm LVPWd: 0.80 cm RVDd: 2.8 cm FS: 37.5 % LAV(MOD-bp): 33.9 ml LVAd ap4: 23.7 cm2 LVAd ap2: 24.0 cm2 LAV(MOD-bp) Indexed: 18.9 ml/m2 LVLd ap4: 7.1 cm LVLd ap2: 7.9 cm LAV(MOD-sp2): 33.8 ml EDV(MOD-sp4): 65.9 ml EDV(MOD-sp2): 61.9 ml LAV(MOD-sp4): 32.1 ml EDV(sp4-el): 67.4 ml EDV(sp2-el): 61.6 ml LVAs ap4: 12.6 cm2 LVAs ap2: 12.3 cm2 LVLs ap4: 5.7 cm LVLs ap2: 6.6 cm ESV(MOD-sp4): 23.7 ml ESV(MOD-sp2): 20.4 ml ESV(sp4-el): 23.5 ml ESV(sp2-el): 19.4 ml EF(MOD-sp4): 64.0 % EF(MOD-sp2): 67.1 % EF(sp4-el): 65.2 % SV(MOD-sp4): 42.2 ml SV(MOD-sp2): 41.5 ml SV(sp4-el): 43.9 ml SI(MOD-sp4): 23.5 ml/m2 SI(MOD-sp2): 23.1 ml/m2 LA A4 area: 13.8 cm2 LA dimension(2D): 3.2 cm RA A4 area: 9.0 cm2 TAPSE: 1.8 cm Time Measurements MV dec time: 0.15 sec Doppler Measurements & Calculations MV E max homero: 79.1 cm/sec Lat Peak E' Homero: 13.7 cm/sec Med Peak E' Homero: 9.3 cm/sec MV A max homero: 73.5 cm/sec E/E' lat: 5.8 E/E' med: 8.5 MV E/A: 1.1 Ao V2 max: 148.5 cm/sec LV V1 max: 124.8 cm/sec PA V2 max: 78.8 cm/sec Ao max P.8 mmHg LV V1 max P.2 mmHg TR max homero: 240.2 cm/sec TR max P.1 mmHg ECHO/Echo Complete Interpretation Summary Normal LV size. Left ventricular systolic function is normal. The left ventricular ejection fraction is 65 %. Pulmonary artery systolic pressure is 28 mmHg. Ordering Physician: Rodriguez Lemon Referring Physician: Cindy Brown Performed By: Simin Galan RDCS
== END | disposition home or self-care (01) ==
LOC: CVS 12:55
PROVIDERS: PCP Nurse Practitioner Family; Referring Provider Internal Medicine Cardiovascular Disease; Visit Provider Internal Medicine Cardiovascular Disease
DX: R00.2 Palpitations (principal)
CPT/HCPCS: 93306